=== PATIENT | female | born 1955 | race Caucasian/White ===

== ENCOUNTER 2020-05-19 06:59 | Outpatient (CLI) | payer MEDICARE, BC, OTHER, SELFPAY ==
[2020-05-19 08:05] LABS: Basophils Absolute Auto 0.1 K/mm3 (0.0-0.1); Basophils Percent Auto 0.7 % (0.2-1.2); Eosinophils Absolute Auto 0.1 K/mm3 (0-0.3); Eosinophils Percent Auto 0.6 % (0-4.4); Hematocrit 44.6 % (37.0-47.0); Hemoglobin 14.8 g/dL (12.0-15.0); Immature Granulocyte Absolute 0.04 K/mm3 (0.00-0.031); Immature Granulocyte Percent A 0.4 % (0-0.5); Lymphocytes Absolute Auto 2.21 K/mm3 (0.9-3.2); Lymphocytes Percent Auto 23.2 % (18.3-44.2); Mean Corpuscular HGB Conc 33.2 g/dl (32-36); Mean Corpuscular Volume 90.5 fl (80-100); Mean Platelet Volume 10.4 fl (7.4-10.4); Monocytes Absolute Auto 0.8 K/mm3 (0.1-0.6); Monocytes Percent Auto 8.2 % (2.6-8.5); Neutrophils Absolute Auto 6.4 K/mm3 (1.3-6.7); Neutrophils Percent Auto 66.9 % (45.5-73.1); Platelet Count Result 257 k/mm3 (150-375); Red Blood Count 4.93 M/mm3 (4.2-5.4); Red Cell Distribution Width 14.4 % (11.5-14.5); White Blood Count 9.5 K/mm3 (4.5-10.0)
[2020-05-19 08:21] LABS: Rheumatoid Factor < 8.6 IU/ML (<12)
[2020-05-19 08:34] LABS: Potassium 4.6 mmol/L (3.4-5.0)
[2020-05-19 09:00] LABS: Erythrocyte Sedimentation Rate 25 mm/hr (0-20)
[2020-05-19 09:05] LABS: Thyroid Stimulating Hormone 0.715 uIU/mL (0.465-4.680)
[2020-05-19 09:10] LABS: Alanine Aminotransferase 21 U/L (4-35); Albumin Level 4.5 g/dL (3.5-5.1); Alkaline Phosphatase 67 U/L (38-126); Anion Gap 6 mmol/L (8-16); Aspartate Amino Transferase 25 U/L (14-36); Bilirubin,Total 1.2 mg/dL (0.2-1.3); Blood Urea Nitrogen 18 mg/dL (7-17); Calcium 9.8 mg/dL (8.4-10.2); Carbon Dioxide 29 mmol/L (22-30); Chloride 106 mmol/L (98-107); Estimated Glomerular Filt Rate > 60; Glucose 97 mg/dL (65-105); Sodium 141 mmol/L (137-145)
[2020-05-19 10:01] LABS: Add Urine Microscopic? YES; Appearance Urine Clear (Clear); Bilirubin Urine Negative (Negative); Blood Urine Negative (Negative); Color Urine Yellow (Yellow); Glucose Urine UA Negative (Negative); Ketones Urine Negative (Negative); Leukocyte Esterase Ur 2+ LEU/UL (NEGATIVE); Mucus Urine Rare /lpf; Nitrate Urine Negative (Negative); Protein Urine Negative (Negative); RBC Urine 0-2 /hpf (0-2); Specific Grav Ur 1.017 (1.001-1.035); Squamous Epithelial Cell Urine Moderate /hpf (Few); Urobilinogen Urine Negative mg/dL (<2.0)
[2020-05-25 19:39] LABS: Anti Cyclic Citrullinated Pept <16 Units (<20)
== END 2020-05-19 07:00 | disposition home or self-care (01) ==
PROVIDERS: PCP Family Medicine; Visit Provider Family Medicine
DX: M19.90 Unspecified osteoarthritis, unspecified site (principal); R53.82 Chronic fatigue, unspecified
CPT/HCPCS: 36415; 80053; 81001; 84443; 85025; 85652; 86038; 86200; 86430

== ENCOUNTER 2020-08-02 09:12 | Outpatient (CLI) | payer MEDICARE, BC, OTHER, SELFPAY ==
--- NOTE | ~2020-08-02 | CT_ITS ---
EXAMINATION: CT cervical spine wo con DATE: 08/02/2020 09:49 INDICATION: Neck pain. TECHNIQUE: Computed tomography (CT) of the cervical spine was performed without intravenous contrast. Automated exposure control and iterative reconstruction technique were employed. The dose-length pro duct was 216.84 mGy-cm. COMPARISON: None FINDINGS: There is 3 degrees dextrocurvature of cervical spine. There is hypolordosis of cervical spi ne. Vertebral body heights are normal. There is moderate to severely decreased disc height from C2-C3 through C6-C7 and mildly decreased disc height at C7-T1 with endplate remodeling. The following disc levels are specifically discussed: C2-C3: There is moderate right and severe left uncovertebral joint osteoarthritis. There is moderate right and severe left facet joint osteoarthritis. There is mild bilateral neural foraminal stenosis. There is no central canal stenosis. C3-C4: There is severe bilateral uncovertebral joint osteoarthritis. There is severe bilateral facet joint osteoarthritis. There is moderate right and mild left neural foraminal stenosis. There is mild central canal stenosis. C4-C5: There is mild right and moderate left uncovertebral joint osteoarthritis. There is moderate ri ght and severe left facet joint osteoarthritis. There is mild bilateral neural foraminal stenosis. Th ere is mild central canal stenosis. C5-C6: There is severe right and moderate left uncovertebral joint osteoarthritis. There is severe bi lateral facet joint osteoarthritis. There is mild bilateral neural foraminal stenosis. There is mild central canal stenosis. C6-C7: There is severe bilateral uncovertebral joint osteoarthritis. There is severe right and mild l eft facet joint osteoarthritis. There is mild bilateral neural foraminal stenosis. There is mild cent ral canal stenosis. C7-T1: There is mild bilateral uncovertebral joint osteoarthritis. There is severe bilateral facet cj int osteoarthritis. There is mild bilateral neural foraminal stenosis. There is no central canal sten osis. IMPRESSION: 1. Severe cervical spondylosis. Reviewed, dictated and finalized at location B.
== END 2020-08-02 09:13 | disposition home or self-care (01) ==
LOC: ANHIMG 09:14
PROVIDERS: PCP Family Medicine; Visit Provider Family Medicine
DX: M47.892 Other spondylosis, cervical region (principal)
CPT/HCPCS: 72125

== ENCOUNTER 2020-08-22 15:05 | Outpatient (CLI) | payer MEDICARE, BC, OTHER, SELFPAY ==
--- NOTE | ~2020-08-22 | XR_ITS ---
XR cervical spine min 6V DATE: 08/22/2020 15:35 INDICATION: Neck pain for 2 months. TECHNIQUE: AP, open-mouth, lateral, swimmer's and flexion and extension lateral views COMPARISON: 08/02/2020 CT cervical spine FINDINGS: C1 and C2 are normally aligned and the odontoid process is intact. No fracture or dislocati on or locked facet or prevertebral soft tissue swelling is detected. Moderate degenerative disc disease is noted at C3-4, C4-5, C5-6, with moderately severe degenerative disc disease at C6-7, C7-T1.. Prominent degenerative changes noted at the apophyseal joints throughout the cervical spine. Uncovertebral joint spurring is noted throughout the cervical spine as well. There is mild anterolisthesis at C2-3, C3-4 and C4-5 and flexion, reduced in neutral and extension. IMPRESSION: Extensive cervical spondylosis Reviewed, dictated and finalized at location A.
== END 2020-08-22 15:06 | disposition home or self-care (01) ==
LOC: ANHIMG 15:09
PROVIDERS: PCP Family Medicine; Visit Provider Neurological Surgery
DX: M54.81 Occipital neuralgia (principal); M47.812 Spondylosis without myelopathy or radiculopathy, cervical region
CPT/HCPCS: 72052

== ENCOUNTER 2020-08-30 06:39 | Outpatient (CLI) | payer MEDICARE, BC, OTHER, SELFPAY ==
--- NOTE | ~2020-08-30 | MR_ITS ---
EXAMINATION: MR cervical spine wo con DATE: 08/30/2020 07:59 INDICATION: Cervical spondylosis. TECHNIQUE: Magnetic resonance imaging (MRI) of the cervical spine was performed without intravenous c ontrast. Sequences included sagittal T2-weighted FSE, sagittal STIR FSE, sagittal T1-weighted FSE, ax ial MERGE, and axial T2-weighted FSE. COMPARISON: CT cervical spine 08/02/2020 FINDINGS: There is hypolordosis of cervical spine. Vertebral body heights are normal. There is modera tely decreased disc height at C2-C3, severely decreased disc height at C3-C4 and C4-C5, moderately de creased disc height at C5-C6 and C6-C7, and mildly decreased disc height at C7-T1 with endplate remod eling. The spinal cord signal intensity is normal. The following disc levels are specifically discuss ed: C2-C3: There is a central protrusion. There is mild right and severe left uncovertebral joint osteoar thritis. There is moderate right and severe left facet joint osteoarthritis. There is mild left neura l foraminal stenosis. There is no central canal stenosis. C3-C4: The disc is bulging. There is severe bilateral uncovertebral joint osteoarthritis. There is se dionte bilateral facet joint osteoarthritis. There is moderate right and mild left neural foraminal ted nosis. There is mild central canal stenosis. C4-C5: The disc is bulging. There is severe bilateral uncovertebral joint osteoarthritis. There is se dionte bilateral facet joint osteoarthritis. There is mild bilateral neural foraminal stenosis. There i s mild central canal stenosis. C5-C6: The disc is bulging. There is severe right and moderate left uncovertebral joint osteoarthriti s. There is severe bilateral facet joint osteoarthritis. There is mild bilateral neural foraminal ted nosis. There is mild central canal stenosis. C6-C7: The disc is bulging. There is severe bilateral uncovertebral joint osteoarthritis. There is se dionte right and mild left facet joint osteoarthritis. There is mild bilateral neural foraminal stenosi s. There is mild central canal stenosis. C7-T1: There is a central extrusion. There is no uncovertebral joint osteoarthritis. There is severe bilateral facet joint osteoarthritis. There is mild bilateral neural foraminal stenosis. There is mil d central canal stenosis. IMPRESSION: 1. Severe cervical spondylosis. Reviewed, dictated and finalized at location A.
== END 2020-08-30 06:40 | disposition home or self-care (01) ==
PROVIDERS: PCP Family Medicine; Visit Provider Neurological Surgery
DX: M47.813 Spondylosis without myelopathy or radiculopathy, cervicothoracic region (principal); M48.03 Spinal stenosis, cervicothoracic region
CPT/HCPCS: 72141

== ENCOUNTER 2020-10-03 14:10 | Outpatient (CLI) | payer MEDICARE, BC, OTHER, SELFPAY ==
--- NOTE | ~2020-10-03 | CT_ITS ---
EXAMINATION: CT hip RT wo con DATE: 10/03/2020 14:32 INDICATION: Right hip pain TECHNIQUE: High resolution computed tomography (CT) of the right hip was performed without intravenou s contrast. Additional sagittal and coronal reconstructions were performed. Automated exposure contro l and iterative reconstruction technique were employed. The dose-length product was 228.67 mGy-cm. COMPARISON: None FINDINGS: Bone alignment is normal. No fracture. Mild right hip osteoarthritis with posterior predominant mild nonuniform joint space narrowing and tiny marginal osteophytes. No joint effusion. Likely benign lyti c lesion with narrow zone of transition with lobular peripheral margin demonstrating contiguous thin sclerosis in the intratrochanteric region of the proximal right femur. The lesion measures 5.2 cm her rito caudally and measuring 3.2 x 2.5 cm maximal transaxial dimensions. No aggressive features. Specif ically no expansion of the bone, endosteal scalloping, periosteal reaction or extraosseous soft tissu e density. There is a small sclerotic lesion at the left femoral inferior head neck junction which me asures 16 x 10 x 9 mm the sclerosis has a ring and arc-like configuration most consistent with chondr oid matrix and would favor enchondroma over bone island or metastases if there has been history of pr ior malignancy. IMPRESSION: 1. Mild right hip osteoarthritis. No acute osseous abnormality. 2. 1.6 cm sclerotic lesion at the inferior right femoral head neck junction with appearance favoring an enchondroma. 3. Larger 5.2 x 3.2 x 2.5 cm likely benign lytic lesion with thin sclerotic margins at the intertroch anteric proximal right femur. Differential would include bone infarct, liposclerosing myxofibrous homar or, fibrous dysplasia or intraosseous lipoma. Reviewed, dictated and finalized at location A. IMPRESSION: 1. Mild right hip osteoarthritis. No acute osseous abnormality. 2. 1.6 cm sclerotic lesion at the inferior right femoral head neck junction wit h appearance favoring an enchondroma. 3. Larger 5.2 x 3.2 x 2.5 cm likely benign lytic lesion with thin sclerotic mar gins at the intertrochanteric proximal right femur. Differential would include bone infarct, liposclerosing myxofibrous tumor, fibrous dysplasia or intraosseo us lipoma.
== END 2020-10-03 14:11 | disposition home or self-care (01) ==
PROVIDERS: PCP Family Medicine; Visit Provider Orthopaedic Surgery
DX: M16.11 Unilateral primary osteoarthritis, right hip (principal)
CPT/HCPCS: 73700

== ENCOUNTER 2020-10-07 09:36 | Outpatient (CLI) | payer MEDICARE, BC, OTHER, SELFPAY ==
--- NOTE | ~2020-10-07 | MR_ITS ---
EXAMINATION: MR hip RT wo/w con DATE: 10/07/2020 11:22 INDICATION: Right hip pain TECHNIQUE: Magnetic resonance imaging (MRI) of the right hip was performed without and with 18 mL Mu ltihance intravenous contrast. Sequences included full-field axial PD-weighted FS FSE and T1-weighted FSE, coronal of the pelvis with PD-weighted FS FSE, T2-weighted FSE and T1-weighted FSE, small field of view of the right hip with axial PD-weighted FS FSE, sagittal PD-weighted FS FSE and coronal PD- weighted FS FSE. Additional radial T1-weighted FGR oriented orthogonal to the acetabular rim were obt ained for evaluation of the labrum. In addition postcontrast small field of view coronal T1-weighted FS FSE and T2-weighted FSE and large juxju-jw-slxa of the pelvis axial T1-weighted FS FSE were obtain ed. COMPARISON: CT dated 10/03/2020 FINDINGS: Bones/labrum/cartilage: Alignment is normal. No fracture or avascular necrosis. Mild right hip osteoarthritis. Tear at the 1 :30-12:00 position of the anterosuperior to superior right acetabular labrum. Again seen is a 5.2 x 2.8 x 2.4 cm medullary centered lesion in the intertrochanteric region of the p roximal right femur with well-defined low signal intensity rim corresponding to the peripherally scle rotic rim identified on prior CT. Within the calcified rim are some peripheral globular regions of T1 hyperintense saturating fat. Centrally there is nonenhancing T2 hyperintense fluid. There is a thin rim of enhancement at the margins of the interfaces between the sclerotic rim and fat and fluid compo nents of the lesion. No extraosseous extension of the lesion or enhancing periostitis. There is been curvilinear enhancement along the margins of the sclerotic lesion is identified at the inferomedial right femoral head which measures 2.3 x 0.9 x [address] the calcified matrix has a r ing and arc-like configuration with similar curvilinear pattern to the fluid signal, in places with c luster of grape like appearance most consistent with chondroid matrix. On the small unnuu-wh-cmas sag ittal images there is a small region of fluid signal which appears uncovered by linear low signal int ensity cortex and on the postcontrast small field of view coronal image there appears to be linear en hancement extending across the cortex at a couple locations. Although no definitive extension of the lesion across the expected contour of the bone is appreciated, these findings raise concern for more aggressive enchondroma or potentially chondrosarcoma. No solid nodular enhancing components identifie d. Fluid: Symmetric physiologic amount of fluid within both hip joints. No other abnormal fluid collections ignacia ntified. Soft tissues: Normal and symmetric muscle bulk and signal in the pelvis and visualized proximal thighs. The iliopso as, gluteal and proximal hamstring tendons are normal. There are few scattered clonic diverticula wit hout adjacent inflammatory change to suggest diverticulitis. The uterus is not identified and has lik [place] been surgically resected. Limited evaluation of visceral organs of the pelvis is otherwise unr emarkable. No pathologically enlarged pelvic/inguinal lymphadenopathy. IMPRESSION: 1. 2.3 x 0.9 x 1.2 cm lesion at the inferomedial aspect of the right femoral head with imaging featur es on CT and MRI favoring chondroid matrix such as an enchondroma. There is however suggest on MRI th at there may be some focal cortical disruption which raises concern for aggressive enchondroma or cho ndrosarcoma. Assessment of cortical integrity at this location on CT is limited by resolution as well as the presence of adjacent marginal osteophytes in the density of the chondroid matrix. Would consi amanda dedicated right hip radiographs including AP and AP with abduction views. Would also correlate wi th the nature of the reported right hip pain. Atypical pain not associated with
[2020-10-07 10:31] LABS: Estimated Glomerular Filt Rate > 60
== END 2020-10-07 09:37 | disposition home or self-care (01) ==
LOC: ANHIMG 09:54
PROVIDERS: PCP Family Medicine; Visit Provider Orthopaedic Surgery
DX: M25.551 Pain in right hip (principal); M16.11 Unilateral primary osteoarthritis, right hip; S73.191A Other sprain of right hip, initial encounter
CPT/HCPCS: 73723; A9577

== ENCOUNTER 2020-11-17 10:28 | Outpatient (CLI) | payer MEDICARE, BC, OTHER, SELFPAY ==
--- NOTE | ~2020-11-17 | MR_ITS ---
EXAMINATION: MR lumbar spine wo con EXAM DATE: 11/17/2020 11:17 INDICATION: M54.16 - Radiculopathy, lumbar region . Chronic low back pain. TECHNIQUE: Multi-sequential, multiplanar MR images of the lumbar spine were obtained without contrast . Sagittal T1, T2, T2 fat saturation images. Axial T2 weighted images. There is no prior study for comparison. FINDINGS: There is moderate disc disease at L4-5 and L5-S1. Mild to moderate L3-4 disc disease. The v ertebral body and disc heights are otherwise well maintained. The vertebral bodies are aligned in the AP dimension. The conus medullaris terminates at the L1 level and has normal signal intensity and mo rphology. There are no suspicious marrow signal abnormalities. Level by level evaluation: T12-L1: Disc does not extend beyond the endplate margin. Facet arthropathy: Minimal. Neural foraminal stenosis: No stenosis. Central canal stenosis: No stenosis. L1-L2: Disc does not extend beyond the endplate margin. Facet arthropathy: Mild. Neural foraminal stenosis: No stenosis. Central canal stenosis: No stenosis. L2-L3: There is a mild diffuse disc bulge. Facet arthropathy: Mild . Ligamentum flavum enlargement. Neural foraminal stenosis: No stenosis. Central canal stenosis: No stenosis. L3-L4: There is a mild to moderate diffuse disc bulge. Annular fissure. Facet arthropathy: Mild to moderate . Ligamentum flavum enlargement. Neural foraminal stenosis: Mild bilateral. Central canal stenosis: Mild to moderate. L4-L5: There is a mild to moderate diffuse disc bulge. Facet arthropathy: Mild. Neural foraminal stenosis: Mild to moderate right. Central canal stenosis: Mild to moderate. L5-S1: There is a mild to moderate diffuse disc bulge. Facet arthropathy: Mild to moderate. Neural foraminal stenosis: Mild bilateral. Central canal stenosis: Mild to moderate. IMPRESSION: 1. Moderate lower lumbar disc disease, mild to moderate arthropathy. Reviewed, dictated and finalized at location A.
== END 2020-11-17 10:29 | disposition home or self-care (01) ==
PROVIDERS: PCP Family Medicine; Visit Provider Orthopaedic Surgery
DX: M47.27 Other spondylosis with radiculopathy, lumbosacral region (principal); M48.07 Spinal stenosis, lumbosacral region
CPT/HCPCS: 72148

== ENCOUNTER 2021-06-12 10:56 | Outpatient (CLI) | payer MEDICARE, BC, OTHER, SELFPAY ==
[2021-06-12 11:27] LABS: Hematocrit 44.8 % (37.0-47.0); Hemoglobin 14.5 g/dL (12.0-15.0); Mean Corpuscular HGB Conc 32.4 g/dl (32-36); Mean Corpuscular Volume 92.6 fl (80-100); Mean Platelet Volume 10.1 fl (7.4-10.4); Platelet Count Result 300 k/mm3 (150-375); Red Blood Count 4.84 M/mm3 (4.2-5.4); Red Cell Distribution Width 13.6 % (11.5-14.5); White Blood Count 10.6 K/mm3 (4.5-10.0)
[2021-06-12 12:20] LABS: Erythrocyte Sedimentation Rate 25 mm/hr (0-20)
[2021-06-12 12:39] LABS: Vitamin D 25 Hydroxy 36.9 ng/mL
[2021-06-12 12:54] LABS: Alanine Aminotransferase 19 U/L (4-35); Albumin Level 4.4 g/dL (3.5-5.1); Alkaline Phosphatase 84 U/L (38-126); Anion Gap 6 mmol/L (8-16); Aspartate Amino Transferase 27 U/L (14-36); Bilirubin,Total 1.4 mg/dL (0.2-1.3); Blood Urea Nitrogen 16 mg/dL (7-17); CRP 2.1 mg/dL (<1.0); Calcium 9.8 mg/dL (8.4-10.2); Carbon Dioxide 29 mmol/L (22-30); Chloride 103 mmol/L (98-107); Estimated Glomerular Filt Rate > 60; Glucose 88 mg/dL (65-110); Sodium 138 mmol/L (137-145)
[2021-06-15 08:38] LABS: SS-A <1.0; SS-B <1.0
== END 2021-06-12 10:57 | disposition home or self-care (01) ==
LOC: ANHLAB 10:59
PROVIDERS: PCP Family Medicine; Visit Provider Internal Medicine
DX: M19.90 Unspecified osteoarthritis, unspecified site (principal); Z51.81 Encounter for therapeutic drug level monitoring; Z79.899 Other long term (current) drug therapy
CPT/HCPCS: 36415; 80053; 82306; 85027; 85652; 86140; 86235

== ENCOUNTER 2021-06-20 12:42 | Outpatient (CLI) | payer MEDICARE, BC, OTHER, SELFPAY ==
--- NOTE | ~2021-06-20 | XR_ITS ---
EXAMINATION: XR lg joint inject/asp add DATE: 06/20/2021 14:13 INDICATION: Left hip pain. TECHNIQUE: A time-out was performed to verify the patient's name, date of , and procedure to b e performed. The procedure including the risks, benefits, and alternatives was discussed with the pat ient. Risks discussed included bleeding and infection. The patient understood the risks and agreed to proceed. The skin overlying the left hip joint was prepped and draped in usual sterile fashion. An esthetic was administered with 1% lidocaine subcutaneously. A 22 G needle was advanced under fluoros copic guidance into the joint. Injection of 1 mL of Omnipaque 240 confirmed intra-articular position of the needle. Subsequently, injectate consisting of 5 mL 1% lidocaine and 2 mL 10 mg/mL Kenalog wa s instilled. The needle was removed and the entry site was cleaned and dressed. There were no immed iate complications. Fluoroscopy exposure time was 0.0 minutes. The total number of images was 2. FINDINGS: Real-time fluoroscopy demonstrates the needle in the left hip joint. IMPRESSION: 1. Fluoroscopy guided left hip joint injection of local anesthetic and steroid . Reviewed, dictated and finalized at location A.
--- NOTE | ~2021-06-20 | XR_ITS ---
EXAMINATION: XR lg joint inject/asp w image DATE: 06/20/2021 14:10 INDICATION: Right hip pain. TECHNIQUE: A time-out was performed to verify the patient's name, date of , and procedure to b e performed. The procedure including the risks, benefits, and alternatives was discussed with the pat ient. Risks discussed included bleeding and infection. The patient understood the risks and agreed to proceed. The skin overlying the right hip joint was prepped and draped in usual sterile fashion. A nesthetic was administered with 1% lidocaine subcutaneously. A 22 G needle was advanced under fluoro scopic guidance into the joint. Injection of 1 mL of Omnipaque 240 confirmed intra-articular positio n of the needle. Subsequently, injectate consisting of 5 mL 1% lidocaine and 2 mL 10 mg/mL Kenalog w as instilled. The needle was removed and the entry site was cleaned and dressed. There were no imme diate complications. Fluoroscopy exposure time was 0.1 minutes. The total number of images was 2. FINDINGS: Real-time fluoroscopy demonstrates the needle in the right hip joint. IMPRESSION: 1. Fluoroscopy guided right hip joint injection of local anesthetic and steroid . Reviewed, dictated and finalized at location A.
== END 2021-06-20 12:43 | disposition home or self-care (01) ==
PROVIDERS: PCP Family Medicine; Visit Provider Orthopaedic Surgery
DX: M25.551 Pain in right hip (principal); M25.552 Pain in left hip
CPT/HCPCS: 20610; 77002; J3301; Q9966

== ENCOUNTER 2022-01-03 11:18 | Outpatient (CLI) | payer MEDICARE, BC, OTHER, SELFPAY ==
[2022-01-03 12:03] LABS: Erythrocyte Sedimentation Rate 22 mm/hr (0-20)
== END 2022-01-03 11:19 | disposition home or self-care (01) ==
LOC: ANHLAB 11:22
PROVIDERS: PCP Family Medicine; Visit Provider Internal Medicine
DX: M19.90 Unspecified osteoarthritis, unspecified site (principal)
CPT/HCPCS: 36415; 85652; 86140

== ENCOUNTER 2022-01-08 15:00 | Outpatient (RCR) | payer MEDICARE, BC, OTHER, SELFPAY | END 2022-01-08 23:59 | disposition home or self-care (01) | LOC: ANHAUDIO 15:00 | PROVIDERS: PCP Family Medicine; Visit Provider Family Medicine | DX: Z46.1 Encounter for fitting and adjustment of hearing aid (principal); H91.93 Unspecified hearing loss, bilateral | CPT/HCPCS: 99199; V5160; V5261 ==

== ENCOUNTER 2022-01-11 01:41 | Day surgery (SDC) | payer MEDICARE, BC, OTHER, SELFPAY ==
--- NOTE | 2021-12-28 10:08 | PM.IMHP ---
H&P: HPI History of Present Illness Date/Time: 12/28/21 10:08 Chief Complaint: Rectocele Narrative: 66-year-old with a rectocele. Is asymptomatic and she desires intervention. She has failed pessary. She has had hysterectomy in the past. He does have stress incontinence which is not symptomatic enough to warrant intervention. Review of Systems Review of Systems: All systems reviewed & are unremarkable except as noted in HPI and below PMFSH Past Medical History Medical History Cervical radiculopathy due to degenerative joint disease of spine Degenerative arthritis of knee, bilateral Degenerative arthritis of lumbar spine Dry eye syndrome Elevated BP without diagnosis of hypertension GERD (gastroesophageal reflux disease) Hearing loss of both ears Inflammatory arthritis Surgical History Surgical History History of hysterectomy 1984 History of rotator cuff surgery 2005 Tear meniscus knee arthroscopy right 2018 left 2019 Family History Family History Sibling Carcinoma of colon, Onset Age: 69 Father Family history of lung cancer, Onset Age: 68 Social History Social History Social History: Smoking status: Never smoker Second hand tobacco smoke exposure: No Alcohol intake: current Drinks per week: 7 Substance use: never Substance use type: does not use Gender identity (if verbalized by the patient): Female Sexual Orientation (if Verbalized by the Patient): Straight or Heterosexual Meds Home Medications and Allergies Home Medications Medication Instructions Recorded Confirmed Type cyclosporine 0.05 % eye drops in a 1 drop ophthalmic (eye) Q12H 04/05/19 11/13/21 History dropperette (Restasis) calcium carbonate 215 mg calcium 600 mg PO BID 05/23/21 11/13/21 History (500 mg) chewable tablet (Antacid Calcium) doxycycline hyclate 50 mg tablet 50 mg PO DAILY 05/23/21 11/13/21 History prednisone 2.5 mg tablet 2.5 mg PO BID #60 tabs 08/16/21 11/13/21 Rx estradiol 0.01% (0.1 mg/gram) 1 appful vaginal DAILY 1 month #85 10/19/21 11/13/21 Rx vaginal cream grams Allergies Allergy/AdvReac Type Severity Reaction Status Date / Time nickel Allergy Mild swelling Verified 11/13/21 14:24 and itch Exam Narrative: No acute distress Normal breathing Alert oriented x3 Rectocele to introitus Assessment and Plan Assessment and plan (1) Rectocele: Code(s): N81.6 - Rectocele Status: Acute Assessment and Plan: Plan on repair of rectocele. Understands risks of bleeding, infection, damage to the bowel or surrounding organs, fistula formation, dyspareunia, recurrent rectocele or prolapse. She agrees to proceed
[2021-12-28 10:13] VITALS: BMI 24.7
--- NOTE | 2021-12-28 10:19 | PC.NURSE ---
Report to the Outpatient Waiting Room, entrance under the green pavilion located off [facility], at time ____45___ on date ___01/11/22____. Planned Procedure Time: ___944 . Time changes happen often and if your time is changed the preop area will call you the afternoon before. - You and your visitor will be asked to self-screen and do not enter if you have any COVID symptoms. - We encourage only one visitor and NO visitors under age 16 are allowed at this time. Your visitor will receive communication by the phone number that is given day of service. - The patient visitor is requested to social distance or may leave the building when not with patient due to restrictions. - A mask is required within the hospital. Patients may have clear liquids (water, carbonated beverages, clear teas, apple juice) until 3 hours prior to surgery (0645 AM) with a maximum of 20 ounces. - No food from midnight until time of surgery - Infants may have breast milk until 4 hours before surgery, infant formula 6 hours prior to surgery. - Children will be allowed to drink immediately following surgery. If applicable, please bring a bottle or sippy cup to assist with drinking. Juice, water, soda, and popsicles are readily available. For infants on formula, please bring formula the day of surgery. Pacifiers are allowed. Take the following medications with a SIP of water the morning of surgery: EYE DROPS Medications to discontinue per physician N/A Date to take last dose Please no make-up, nail citizen of [place], hairspray, perfume, deodorant, or body powder the day of surgery. No jewelry (including any body piercings) or valuables the day of surgery, leave them at home. Please take a shower or bath the night before, or the morning of, surgery with an antibacterial soap. Wear comfortable, loose fitting clothing. Children are encouraged to wear pajamas. - Jewelry must be removed prior to entering the operating room. Rings and piercings that are not removed may be cut off. - The hospital will not accept responsibility for valuables. - Please leave all valuables, including medications, at home the day of surgery. If you are going home after surgery, a licensed stage driver must drive you home. - NO public transportation without another adult. - We recommend that an adult stay with you for 24 hours following discharge. - We also recommend that you do not drive, make important decision, drink alcoholic beverages, or take any drugs that were not prescribed by your health care provider for at least 24 hours after your discharge time. For Pediatric surgeries, we recommend two adults accompany the child home. Follow any additional instructions given to you from your surgeon. If you or anyone in your household have experienced Covid symptoms in the past week, please notify your surgeon or the nurse liaison at the phone number below for possible testing. Telephone instructions given to ____PT and asked if any additional questions and then verbalized understanding. Patient advised to call surgeon office or pre surgery nurse liaison [phone] if any additional questions.
[2022-01-11] VITALS (8 sets, daily range): BP systolic 132–161; BP diastolic 77–88; PULSE 57–72; RESP 14–22; TEMP 36.4–36.9; O2SAT 98–100
--- NOTE | 2022-01-11 07:18 | WPDHPUPDATE1 ---
History and Physical Update Update Date/Time: 01/11/22 07:18 History and Physical has been reviewed, including an updated exam of the patient. There are NO changes in the patient's condition. Risks, benefits, and alternatives have been discussed and questions answered. Patient agrees to proceed with procedure.
--- NOTE | 2022-01-11 08:14 | WPDANESEPPF ---
Anes - Initial Pre Proc Eval Procedure: Operation Date: 01/11/22 09:45 Proposed Procedures p Rectocele Repair - Georges Mcguire MD Date/Time: 01/11/22 08:14 Surgeon: Georges Mcguire MD Pre Op Diagnosis: rectocele Patient Data Age: 66 Gender: F Height: 1.69 m Weight: 72.2 kg Allergies Allergy/AdvReac Type Severity Reaction Status Date / Time nickel Allergy Mild swelling Verified 01/11/22 08:07 and itch Home Medications Medication Instructions Recorded Confirmed Type cyclosporine 0.05 % eye drops in a 1 drop ophthalmic (eye) Q12H 04/05/19 01/11/22 History dropperette (Restasis) calcium carbonate 215 mg calcium 600 mg PO BID 05/23/21 01/11/22 History (500 mg) chewable tablet (Antacid Calcium) doxycycline hyclate 50 mg tablet 50 mg PO DAILY 05/23/21 01/11/22 History estradiol 0.01% (0.1 mg/gram) 1 appful vaginal DAILY 1 month #85 10/19/21 01/11/22 Rx vaginal cream grams fiber 1 tablet PO BID 12/28/21 01/11/22 History Patient hx anesthesia problems: none Family hx anesthesia problems: none Results Review: All pre-operative results and documents have been reviewed as part of the pre-operative evaluation. [facility] Past Medical History Medical History Cervical radiculopathy due to degenerative joint disease of spine Degenerative arthritis of knee, bilateral Degenerative arthritis of lumbar spine Dry eye syndrome Elevated BP without diagnosis of hypertension GERD (gastroesophageal reflux disease) Hearing loss of both ears Inflammatory arthritis Surgical History Surgical History History of hysterectomy 1984 History of rotator cuff surgery 2005 Tear meniscus knee arthroscopy right 2018 left 2019 Family History Family History Sibling Carcinoma of colon, Onset Age: 69 Father Family history of lung cancer, Onset Age: 68 Social History Social History Social History: Smoking status: Never smoker Second hand tobacco smoke exposure: No Alcohol intake: current Drinks per week: 7 Substance use: never Substance use type: does not use Living arrangements: with family Gender identity (if verbalized by the patient): Female Sexual Orientation (if Verbalized by the Patient): Straight or Heterosexual Spiritual care concerns: No Anes - Eval Final PreProcedure Day of Procedure 01/11/22 08:14 Patient weight: normal Heart: regular rate and rhythm Lungs: clear to auscultation Airway: Mallampati scale class II Neurological: alert and oriented Last oral intake: >/= 8 hours ASA classification: II Emergent: no Anesthetic plan: proceed Anesthesia type and monitoring: general ETT and standard monitoring Results Review: All pre-operative results and documents have been reviewed as part of the pre-operative evaluation. Informed Consent: The patient's anesthetic plan and its attendant risks and benefits were discussed with the patient/family/POA. Questions were solicited and answers provided to the satisfaction of the patient/family/POA.
[2022-01-11] MEDS: LACTATED RINGERS 1,000 ML 30 ML IV CONT (08:16)
[2022-01-11] MEDS: ceFAZolin 2 GM/D5W 50 ML 2 GM/50 ML BAG IVPB (10:01)
[2022-01-11] MEDS: BUPIVACAINE/EPINEPHRINE 0.25% 50 ML VIAL INFILTRATE (10:27)
--- NOTE | 2022-01-11 10:56 | P.OP_ITS ---
Procedure Note - Detailed Date of Procedure 01/11/22 Pre-op Diagnosis rectocele Post-op Diagnosis Same Procedure Performed Rectocele repair Surgeon Georges Mcguire MD Anesthesia General Indications This is a with a symptomatic rectocele. She desires correction. We discussed a rectocele repair. She understands risks of bleeding, infection, recurrence, damage to the bowel, fistula, damage surrounding organs, recurrent prolapse, hip and leg pain, dyspareunia. She agrees to proceed Findings Rectocele to the introitus with mild loss of apical support Description of Procedure She has correctly identified. Informed consent obtained. From the operating room. She was given general anesthesia. She was prepped and draped fashion. Time-out performed. I placed Chopra catheter. I placed a [place] retractor. I examine the rectocele. It was to the introitus. She had reasonable apical support but some mild loss. I grasped the rectocele with Allis clamps. I infiltrated subcutaneous tissues with local mixed with epinephrine. I made a midline vaginal incision. I dissected the mucosa off the underlying fascial structures laterally and back to the apex. I then performed a standard plication rectocele repair with 0 Vicryl sutures. This was done in interrupted fashion. It reduced the rectocele. The posterior wall was flat. There is mild loss of apical support above the rectocele. I did not do an enterocele repair. I then trimmed excess vaginal mucosa. I closed the vaginal [place] a running 2 0 Vicryl suture. There was excellent support of the rectocele. There is no significant cystocele. I assured hemostasis. I did not place vaginal packing. I removed the Chopra in the [place] retractor. She was awakened transferred to PACU in stable condition Estimated Blood Loss -20.0 Complications No immediate complications Condition Stable Disposition PACU
== END 2022-01-11 12:42 | disposition home or self-care (01) ==
PROVIDERS: PCP Family Medicine; Visit Provider Urology
PROC: 0JQC0ZZ Repair Pelvic Region Subcutaneous Tissue and Fascia, Open Approach (ICD-10-PCS; CPT 45560; principal; 2022-01-11 09:45)
DX: N81.6 Rectocele (principal); K21.9 Gastro-esophageal reflux disease without esophagitis
CPT/HCPCS: 45560; A9270; J0690; J1100; J2250; J2405; J2704; J3010; J7030; J7120

== ENCOUNTER 2022-03-12 10:05 | Outpatient (CLI) | payer MEDICARE, BC, OTHER, SELFPAY ==
[2022-03-12 11:19] LABS: Hematocrit 44.5 % (37.0-47.0); Hemoglobin 14.5 g/dL (12.0-15.0); Mean Corpuscular HGB Conc 32.6 g/dl (32-36); Mean Corpuscular Hemoglobin 29.6 pg (26-34); Mean Corpuscular Volume 90.8 fl (80-100); Mean Platelet Volume 10.8 fl (7.4-10.4); Platelet Count Result 261 k/mm3 (150-375); Red Cell Distribution Width 13.6 % (11.5-14.5); White Blood Count 8.9 K/mm3 (4.5-10.0)
[2022-03-12 11:30] LABS: Add Urine Microscopic? NO; Appearance Urine Clear (Clear); Bilirubin Urine Negative (Negative); Blood Urine Negative (Negative); Color Urine Yellow (Yellow); Glucose Urine UA Negative (Negative); Ketones Urine Negative (Negative); Leukocyte Esterase Ur Negative LEU/UL (Negative); Nitrate Urine Negative (Negative); Protein Urine Negative (Negative); Specific Grav Ur <= 1.005 (1.001-1.035); Urobilinogen Urine 0.2 mg/dL (<2.0)
[2022-03-12 11:33] LABS: Alanine Aminotransferase 20 U/L (6-35); Albumin Level 4.4 g/dL (3.5-5.1); Alkaline Phosphatase 71 U/L (38-126); Anion Gap 6 mmol/L (8-16); Aspartate Amino Transferase 25 U/L (14-36); Blood Urea Nitrogen 18 mg/dL (7-17); CRP 1.3 mg/dL (<1.0); Calcium 8.9 mg/dL (8.4-10.2); Carbon Dioxide 28 mmol/L (22-30); Chloride 101 mmol/L (98-107); Estimated Glomerular Filt Rate > 60; Glucose 87 mg/dL (65-110); Potassium 4.3 mmol/L (3.4-5.0); Sodium 135 mmol/L (137-145)
[2022-03-12 12:12] LABS: Erythrocyte Sedimentation Rate 17 mm/hr (0-20)
== END 2022-03-12 10:06 | disposition home or self-care (01) ==
PROVIDERS: PCP Family Medicine; Visit Provider Internal Medicine
DX: M35.3 Polymyalgia rheumatica (principal); M19.90 Unspecified osteoarthritis, unspecified site; R89.9 Unspecified abnormal finding in specimens from other organs, systems and tissues
CPT/HCPCS: 36415; 80053; 81003; 85027; 85652; 86140

== ENCOUNTER 2022-07-08 06:59 | Outpatient (CLI) | payer MEDICARE, BC, OTHER, SELFPAY ==
[2022-07-08 07:22] LABS: Hematocrit 44.6 % (37.0-47.0); Hemoglobin 14.6 g/dL (12.0-15.0); Mean Corpuscular HGB Conc 32.7 g/dl (32-36); Mean Corpuscular Hemoglobin 31.1 pg (26-34); Mean Corpuscular Volume 94.9 fl (80-100); Platelet Count Result 254 k/mm3 (150-375); Red Cell Distribution Width 14.6 % (11.5-14.5); White Blood Count 8.2 K/mm3 (4.5-10.0)
[2022-07-08 07:24] LABS: Appearance Urine Clear (Clear); Bilirubin Urine Negative (Negative); Blood Urine Negative (Negative); Color Urine Yellow (Yellow); Glucose Urine UA Negative (Negative); Ketones Urine Negative (Negative); Leukocyte Esterase Ur Negative LEU/UL (Negative); Nitrate Urine Negative (Negative); Protein Urine Negative (Negative); Specific Grav Ur 1.014 (1.001-1.035); Urobilinogen Urine 0.2 mg/dL (<2.0); pH Urine 7.5 (5.0-9.0)
[2022-07-08 07:38] LABS: Alanine Aminotransferase 25 U/L (6-35); Albumin Level 4.3 g/dL (3.5-5.1); Alkaline Phosphatase 63 U/L (38-126); Anion Gap 3 mmol/L (8-16); Aspartate Amino Transferase 21 U/L (14-36); Bilirubin,Total 1.4 mg/dL (0.2-1.3); Blood Urea Nitrogen 17 mg/dL (7-17); CRP 1.9 mg/dL (<1.0); Calcium 9.3 mg/dL (8.4-10.2); Carbon Dioxide 32 mmol/L (22-30); Chloride 101 mmol/L (98-107); Estimated Glomerular Filt Rate > 60; Glucose 102 mg/dL (65-110); Potassium 4.3 mmol/L (3.4-5.0); Sodium 136 mmol/L (137-145)
[2022-07-08 07:56] LABS: Add Urine Microscopic? NO
[2022-07-08 08:09] LABS: Erythrocyte Sedimentation Rate 15 mm/hr (0-20)
== END 2022-07-08 07:00 | disposition home or self-care (01) ==
PROVIDERS: PCP Family Medicine; Visit Provider Internal Medicine
DX: M19.90 Unspecified osteoarthritis, unspecified site (principal); M35.3 Polymyalgia rheumatica; R89.9 Unspecified abnormal finding in specimens from other organs, systems and tissues
CPT/HCPCS: 36415; 80053; 81003; 85027; 85652; 86140

== ENCOUNTER 2022-08-02 07:47 | Outpatient (CLI) | payer MEDICARE, BC, OTHER, SELFPAY ==
[2022-08-02 09:23] LABS: CRP 1.3 mg/dL (<1.0)
[2022-08-02 09:37] LABS: Erythrocyte Sedimentation Rate 17 mm/hr (0-20)
[2022-08-06 13:53] LABS: NIL 0.02 IU/mL; Quantiferon TB Plus, 1T NEGATIVE (NEGATIVE); TB1-NIL 0.06 IU/mL; TB2-NIL 0.05 IU/mL
== END 2022-08-02 07:48 | disposition home or self-care (01) ==
PROVIDERS: PCP Family Medicine; Visit Provider Internal Medicine
DX: M35.3 Polymyalgia rheumatica (principal); M31.6 Other giant cell arteritis; M19.90 Unspecified osteoarthritis, unspecified site
CPT/HCPCS: 36415; 85652; 86140; 86480

== ENCOUNTER 2022-08-03 07:48 | Outpatient (CLI) | payer MEDICARE, BC, OTHER, SELFPAY ==
--- NOTE | ~2022-08-03 | MR_ITS ---
EXAMINATION: MR brain/brain stem wo/w con DATE: 08/03/2022 08:53 INDICATION: Other giant cell arteritis. Dizziness. TECHNIQUE: Magnetic resonance imaging (MRI) of the brain and brainstem was performed without and with 13 mL MultiHance intravenous contrast. COMPARISON: None. FINDINGS: There are scattered areas of nonspecific increased T2-weighted signal intensity in the cere bral white matter, bilateral basal ganglia and dragan. There is no intracranial hemorrhage, acute infar ction, or abnormal intracranial mass lesion. The ventricles are normal in size. There is mild mucosal thickening in the ethmoid sinuses. The orbits are normal. The mastoid air cells are normal. IMPRESSION: 1. Moderate nonspecific cerebral white matter disease and disease of the bilateral basal ganglia and dragan, which likely represents chronic small vessel ischemic disease. Reviewed, dictated and finalized at location A. IMPRESSION: 1. Moderate nonspecific cerebral white matter disease and disease of the bilate ral basal ganglia and dragan, which likely represents chronic small vessel ischem ic disease.
== END 2022-08-03 07:49 | disposition home or self-care (01) ==
LOC: ANHIMG 07:51
PROVIDERS: PCP Family Medicine; Visit Provider Internal Medicine
DX: M31.6 Other giant cell arteritis (principal); R93.0 Abnormal findings on diagnostic imaging of skull and head, not elsewhere classified
CPT/HCPCS: 70553; A9577

== ENCOUNTER 2022-10-21 02:49 | Day surgery (SDC) | payer MEDICARE, BC, OTHER, SELFPAY ==
[2022-10-09 15:01] VITALS: BMI 23.5
--- NOTE | 2022-10-09 15:03 | PC.NURSE ---
Report to the Outpatient Waiting Room, entrance under the green pavilion located off [facility], at time _0930_ on date _[id number]_. Planned Procedure Time: _1130_. Time changes happen often and if your time is changed the preop area will call you the afternoon before. - You and your visitor will be asked to self-screen and do not enter if you have any COVID symptoms. - A mask is optional within the hospital at this time. Patients may have clear liquids (water, carbonated beverages, clear teas, apple juice) until 3 hours prior to surgery with a maximum of 20 ounces. - No food from midnight until time of surgery Take the following medications with a SIP of water the morning of surgery: __eye drops DO NOT STOP ANY OF YOUR OTHER PRESCRIPTION MEDICATIONS PRIOR TO SURGERY ?EXCEPT THE FOLLOWING Medications to discontinue per physician ___Patient says Dr Mcguire's office told her to stop prednisone and vitamins 1 week before surgery.____ Date to take last dose Please no make-up, nail georgian, hairspray, perfume, deodorant, or body powder the day of surgery. No jewelry (including any body piercings) or valuables the day of surgery, leave them at home. Please take a shower or bath the night before, or the morning of, surgery with an antibacterial soap. Wear comfortable, loose fitting clothing. - Jewelry must be removed prior to entering the operating room. Rings and piercings that are not removed may be cut off. - The hospital will not accept responsibility for valuables. - Please leave all valuables, including medications, at home the day of surgery. If you are going home after surgery, a licensed powder truck driver must drive you home. - NO public transportation without another adult if you receive anesthesia. - We recommend that an adult stay with you for 24 hours following discharge. - We also recommend that you do not drive, make important decision, drink alcoholic beverages, or take any drugs that were not prescribed by your health care provider for at least 24 hours after your discharge time. Follow any additional instructions given to you from your surgeon. If you or anyone in your household have experienced Covid symptoms in the past week, please notify your surgeon or the nurse liaison at the phone number below for possible testing. Telephone instructions given to __Patient___and asked if any additional questions and then verbalized understanding. Patient advised to call surgeon office or pre surgery nurse liaison [phone] if any additional questions.
--- NOTE | 2022-10-20 09:26 | PM.IMHP ---
H&P: [facility] History of Present Illness Date/Time: 10/20/22 09:26 Chief Complaint: Pelvic organ prolapse Narrative: she has a large rectocele and vaginal vault prolapse. She had a prior rectocele repair in January 2022 which quickly failed. She has no stress incontinence by history. There is stress incontinence noted on urodynamics. She would like repair of her prolapse. she declines concomitant stress incontinence procedure Review of Systems Review of Systems: All systems reviewed & are unremarkable except as noted in HPI and below [facility] Past Medical History Medical History Acute sinusitis Bronchitis Cervical radiculopathy due to degenerative joint disease of spine Congestion of left ear Degenerative arthritis of knee, bilateral Degenerative arthritis of lumbar spine Dry eye syndrome GERD (gastroesophageal reflux disease) Hearing loss of aging Hearing loss of both ears Inflammatory arthritis Inflammatory arthritis Polymyalgia rheumatica Vaginal discharge Surgical History Surgical History History of hysterectomy 1984 History of rotator cuff surgery 2004 Tear meniscus knee arthroscopy right 2018 left 2019 Family History Family History Sibling Carcinoma of colon, Onset Age: 69 Father Family history of lung cancer, Onset Age: 68 Social History Social History Social History: Smoking status: Never smoker Second hand tobacco smoke exposure: No Alcohol intake: current Drinks per week: 7 Substance use: never Substance use type: does not use Lack of Transportation: No Lack of Food: Never True Current Housing: I Have Housing Concerned About Future Housing: No Difficulty Paying Gas/Electric Bills: No Difficulty Paying for Meds: No Currently Unemployed: YES Education: Decline to Answer Difficulty w/ Childcare or Family Care: No Living arrangements: with family Occupation/Education: retired Gender identity (if verbalized by the patient): Female Sexual Orientation (if Verbalized by the Patient): Straight or Heterosexual Spiritual care concerns: No Meds Home Medications and Allergies Home Medications Medication Instructions Recorded Confirmed Type cyclosporine 0.05 % eye drops in a 1 drop ophthalmic (eye) Q12H 04/05/19 10/09/22 History dropperette (Restasis) calcium carbonate 215 mg calcium 600 mg PO BID 05/23/21 10/09/22 History (500 mg) chewable tablet (Antacid Calcium) fiber 1 tablet PO BID 12/28/21 10/09/22 History prednisone 2.5 mg tablet 2.5 mg PO BID #60 tabs 08/20/22 10/09/22 Rx tocilizumab 162 mg/0.9 mL 162 mg (0.9 mL) subcut WEEKLY #3.6 08/27/22 10/09/22 Rx subcutaneous pen injector (Actemra mL ACTPen) estradiol 0.01% (0.1 mg/gram) See Rx Instructions .Route 09/04/22 10/09/22 Rx vaginal cream .COMPLEX #85 grams metronidazole 1 % topical gel 1 applic topical DAILY #60 grams 09/19/22 10/09/22 Rx doxycycline hyclate 50 mg capsule 50 mg PO DAILY 10/09/22 10/09/22 History Allergies Allergy/AdvReac Type Severity Reaction Status Date / Time nickel Allergy Mild swelling Verified 10/09/22 14:53 and itch Exam Narrative: no acute distress minimal urethral mobility alert oriented x3 apex at -2 rectocele beyond the introitus Assessment and Plan Assessment and plan (1) Rectocele: Code(s): N81.6 - Rectocele Status: Acute (2) Prolapse of vaginal vault after hysterectomy: Code(s): N99.3 - Prolapse of vaginal vault after hysterectomy Status: Acute Plan vaginal prolapse repair with sacral spinous ligament fixation and possible rectocele repair she understands risks of bleeding, infection, damage to the bowel or bladder, damage to surrounding organs,
[2022-10-21] VITALS (11 sets, daily range): BP systolic 116–169; BP diastolic 69–99; PULSE 54–85; RESP 14–20; TEMP 36.2–36.4; O2SAT 92–100; BMI 24.9
[2022-10-21] MEDS: LACTATED RINGERS 1,000 ML 30 ML IV CONT ×2 (10:30→13:34)
--- NOTE | 2022-10-21 10:56 | WPDHPUPDATE1 ---
History and Physical Update Update Date/Time: 10/21/22 10:56 History and Physical has been reviewed, including an updated exam of the patient. There are NO changes in the patient's condition. Risks, benefits, and alternatives have been discussed and questions answered. Patient agrees to proceed with procedure.
--- NOTE | 2022-10-21 11:26 | WPDANESEPPF ---
Anes - Initial Pre Proc Eval Procedure: Operation Date: 10/21/22 11:30 Proposed Procedures p Sacral Spinous Ligament Fixation, Rectocele Repair - Georges Mcguire MD Date/Time: 10/21/22 11:26 Surgeon: Georges Mcguire MD Pre Op Diagnosis: Prolapse, Vag vault after Hysterectomy Patient Data Age: 67 Gender: F Height: 1.7 m Weight: 72.25 kg Last Vital Signs Temp 36.4 C L 10/21/22 09:28 Pulse 77 10/21/22 09:28 Resp 16 10/21/22 09:28 BP 143/88 H 10/21/22 10:42 Pulse Ox 100 10/21/22 09:28 O2 Del Method Room Air 10/21/22 09:28 Allergies Allergy/AdvReac Type Severity Reaction Status Date / Time nickel Allergy Mild swelling Verified 10/21/22 09:42 and itch Home Medications Medication Instructions Recorded Confirmed Type cyclosporine 0.05 % eye drops in a 1 drop ophthalmic (eye) Q12H 04/05/19 10/09/22 History dropperette (Restasis) calcium carbonate 215 mg calcium 600 mg PO BID 05/23/21 10/21/22 History (500 mg) chewable tablet (Antacid Calcium) fiber 1 tablet PO BID 12/28/21 10/21/22 History prednisone 2.5 mg tablet 2.5 mg PO BID #60 tabs 08/20/22 10/21/22 Rx tocilizumab 162 mg/0.9 mL 162 mg (0.9 mL) subcut WEEKLY #3.6 08/27/22 10/09/22 Rx subcutaneous pen injector (Actemra mL ACTPen) metronidazole 1 % topical gel 1 applic topical DAILY #60 grams 09/19/22 10/09/22 Rx doxycycline hyclate 50 mg capsule 50 mg PO DAILY 10/09/22 10/09/22 History estradiol 0.01% (0.1 mg/gram) See Rx Instructions .Route 10/21/22 Rx vaginal cream .COMPLEX #85 grams Patient hx anesthesia problems: post op nausea/vomiting Family hx anesthesia problems: none Results Review: All pre-operative results and documents have been reviewed as part of the pre-operative evaluation. COUNTS INCLUDE 234 BEDS AT THE [facility] Past Medical History Medical History Acute sinusitis Bronchitis Cervical radiculopathy due to degenerative joint disease of spine Congestion of left ear Degenerative arthritis of knee, bilateral Degenerative arthritis of lumbar spine Dry eye syndrome GERD (gastroesophageal reflux disease) Hearing loss of aging Hearing loss of both ears Inflammatory arthritis Inflammatory arthritis Polymyalgia rheumatica Vaginal discharge Surgical History Surgical History History of hysterectomy 1984 History of rotator cuff surgery 2005 Tear meniscus knee arthroscopy right 2018 left 2019 Family History Family History Sibling Carcinoma of colon, Onset Age: 69 Father Family history of lung cancer, Onset Age: 68 Social History Social History Social History: Smoking status: Never smoker Second hand tobacco smoke exposure: No Alcohol intake: current Drinks per week: 7 Substance use: never Substance use type: does not use Lack of Transportation: No Lack of Food: Never True Current Housing: I Have Housing Concerned About Future Housing: No Difficulty Paying Gas/Electric Bills: No Difficulty Paying for Meds: No Currently Unemployed: YES Education: Decline to Answer Difficulty w/ Childcare or Family Care: No Living arrangements: with family Occupation/Education: retired Gender identity (if verbalized by the patient): Female Sexual Orientation (if Verbalized by the Patient): Straight or Heterosexual Spiritual care concerns: No Anes - Eval Final PreProcedure Day of Procedure 10/21/22 11:26 Patient weight: normal Heart: regular rate and rhythm Lungs: clear to auscultation Airway: Mallampati scale class II Neurological: alert and oriented Last oral intake: >/= 8 hours ASA classification: III Emergent: no Anesthetic plan: proceed Anesthesia type and monitoring: general GIVS and standard monitoring Results Review: A
[2022-10-21] MEDS: ceFAZolin 2 GM/D5W 50 ML 2 GM/50 ML BAG IVPB (11:29)
[2022-10-21] MEDS: BUPIVACAINE/EPINEPHRINE 0.25% 50 ML VIAL 30 ML INFILTRATE (12:32)
--- NOTE | 2022-10-21 13:04 | W.PM.PROC2 ---
Procedure Note - Detailed Date of Procedure 10/21/22 Pre-op Diagnosis Prolapse, Vag vault after Hysterectomy Female perineal laxity Post-op Diagnosis Same Procedure Performed Extraperitoneal transvaginal colpopexy/sacral spinous ligament fixation [id number] Perineoplasty [id number] Surgeon Georges Mcguire MD Anesthesia General and Local Indications This is a woman who is status post prolapse repair as well as hysterectomy. She quickly filled her prolapse repair. She has a large rectocele/enterocele and loss of apical support. She presents for a extra perineal vaginal colpopexy/sacral spinous ligament fixation. She understands risks of bleeding, infection, damage to the rectum or surrounding organs, recurrence of prolapse, vessel or nerve injury, postoperative voiding dysfunction including incontinence and retention, dyspareunia, need for ancillary procedures. She agrees to proceed Findings Large enterocele and vaginal vault prolapse Description of Procedure She has correctly identified. Informed consent was obtained. She from the operating room. She was given general anesthesia. She was placed in dorsal lithotomy position. Genitalia prepped and draped in a sterile fashion. Time-out performed. I placed the [place] retractor. I placed a Chopra catheter. She had a very large enterocele and rectocele with loss of apical support. I grasped the posterior wall. I infiltrated the subcutaneous tissues with local mixed with epinephrine. I made a midline vaginal incision on the posterior wall. I dissected out laterally both on the right and the left towards the apex. Of note I did not enter the peritoneal. I continued to dissect back on the right to locate the ischial spine and the sacral spinous ligament fixation. I chose a site on the sacral spinous ligament 2 fingerbreadths medial to the ischial spine. I used the [employer] device to place a Ethibond suture into the sacral spinous ligament. Again this was done to 6 fingerbreadths medial to the ischial spine. I took great care to sweep rectum medially. I then chose a site on the apex and placed the other and the suture and a good purchase of tissue at apex vagina. I then tied down the sacral spinous ligament fixation. There was excellent reduction of the vaginal wall prolapse as well as enterocele. Again I did not enter the enterocele sac. I did not enter the peritoneum. I then closed the vaginal incision with a running 2-0 Vicryl suture. There was excellent support of the vaginal vault. There was no significant rectocele. She had perineal laxity noted. I infiltrated it the perineum with local mixed with epinephrine. I removed a almas-shaped area of skin. I then performed a perineoplasty with 0 Vicryl suture. I used a 2-0 Vicryl closed the mucosa. There was excellent support to the perineum. I assured hemostasis. No vaginal packing was applied. I then performed cystoscopy. There was mild trabeculations. There is no other bladder abnormalities or foreign bodies. Urethra was normal. Ureters were normal. I left the bladder partially full. Rectal exam was normal. No sign of foreign body. No sign of injury. she was awakened transferred to PACU in stable condition. Estimated Blood Loss 50 Urine Output -600.0 Drains No Packing No Pathology None sent Complications No immediate complications Condition Stable Disposition PACU
[2022-10-21] MEDS: fentaNYL CITRATE INJ (*CRX) 100 MCG/2 ML VIAL 25 MCG IV PUSH ×4 (13:23→13:57)
[2022-10-21] MEDS: oxyCODONE HCL (*CRX) 5 MG TAB IR PO (14:22)
== END 2022-10-21 15:10 | disposition home or self-care (01) ==
PROVIDERS: PCP Family Medicine; Visit Provider Urology
PROC: (CPT 57260; principal; 2022-10-21 11:30)
DX: N99.3 Prolapse of vaginal vault after hysterectomy (principal); M54.12 Radiculopathy, cervical region; K21.9 Gastro-esophageal reflux disease without esophagitis; Z80.1 Family history of malignant neoplasm of trachea, bronchus and lung; Z80.0 Family history of malignant neoplasm of digestive organs
CPT/HCPCS: 57282; A9270; J0690; J1100; J2250; J2405; J2704; J3010; J7030; J7120; Q9968

== ENCOUNTER 2022-11-06 06:45 | Outpatient (CLI) | payer MEDICARE, BC, OTHER, SELFPAY ==
[2022-11-06 08:06] LABS: Appearance Urine Clear (Clear); Bacteria Urine None Seen /hpf; Bilirubin Urine Negative (Negative); Blood Urine Negative (Negative); Color Urine Yellow (Yellow); Glucose Urine UA Negative (Negative); Ketones Urine Negative (Negative); Leukocyte Esterase Ur 2+ LEU/UL (Negative); Nitrate Urine Negative (Negative); Non Pathogenic Casts 0-2; Protein Urine Negative (Negative); RBC Urine 0-2 /hpf (0-2); Specific Grav Ur 1.017 (1.001-1.035); Squamous Epithelial Cell Urine Few /hpf (Few); Urobilinogen Urine 0.2 mg/dL (<2.0)
[2022-11-06 08:11] LABS: Hematocrit 45.3 % (37.0-47.0); Hemoglobin 14.8 g/dL (12.0-15.0); Mean Corpuscular HGB Conc 32.7 g/dl (32-36); Mean Corpuscular Hemoglobin 30.4 pg (26-34); Mean Platelet Volume 10.7 fl (7.4-10.4); Platelet Count Result 352 k/mm3 (150-375); Red Blood Count 4.87 M/mm3 (4.2-5.4); Red Cell Distribution Width 13.8 % (11.5-14.5); White Blood Count 11.2 K/mm3 (4.5-10.0)
[2022-11-06 08:15] LABS: Add Urine Microscopic? YES
[2022-11-06 08:22] LABS: Alanine Aminotransferase 26 U/L (6-35); Albumin Level 4.3 g/dL (3.5-5.1); Alkaline Phosphatase 63 U/L (38-126); Anion Gap 9 mmol/L (8-16); Aspartate Amino Transferase 24 U/L (14-36); Bilirubin,Total 0.8 mg/dL (0.2-1.3); Blood Urea Nitrogen 19 mg/dL (7-17); CRP 0.6 mg/dL (<1.0); Calcium 9.3 mg/dL (8.4-10.2); Carbon Dioxide 26 mmol/L (22-30); Chloride 100 mmol/L (98-107); Cholesterol 207 mg/dL (0-200); Estimated Glomerular Filt Rate 55; Glucose 74 mg/dL (65-110); HDL Direct 75 mg/dL; Potassium 4.5 mmol/L (3.4-5.0); Sodium 135 mmol/L (137-145); Triglycerides 232 mg/dL (<150)
[2022-11-06 08:30] LABS: LDL Cholesterol Direct 84 mg/dL
[2022-11-06 09:56] LABS: Erythrocyte Sedimentation Rate 16 mm/hr (0-20)
== END 2022-11-06 06:46 | disposition home or self-care (01) ==
LOC: ANHLAB 06:48
PROVIDERS: PCP Family Medicine; Visit Provider Internal Medicine
DX: M31.6 Other giant cell arteritis (principal); M19.90 Unspecified osteoarthritis, unspecified site; R89.9 Unspecified abnormal finding in specimens from other organs, systems and tissues; I10 Essential (primary) hypertension
CPT/HCPCS: 36415; 80053; 80061; 81001; 85027; 85652; 86140; 87077; 87086; 87088

== ENCOUNTER 2023-01-15 06:45 | Outpatient (CLI) | payer MEDICARE, BC, OTHER, SELFPAY ==
[2023-01-15 07:52] LABS: Hematocrit 46.8 % (37.0-47.0); Hemoglobin 15.1 g/dL (12.0-15.0); Mean Corpuscular HGB Conc 32.3 g/dl (32-36); Mean Corpuscular Volume 96.1 fl (80-100); Mean Platelet Volume 10.4 fl (7.4-10.4); Platelet Count Result 229 k/mm3 (150-375); Red Blood Count 4.87 M/mm3 (4.2-5.4); Red Cell Distribution Width 14.8 % (11.5-14.5); White Blood Count 6.4 K/mm3 (4.5-10.0)
[2023-01-15 07:57] LABS: Appearance Urine Clear (Clear); Bilirubin Urine Negative (Negative); Blood Urine Negative (Negative); Color Urine Yellow (Yellow); Glucose Urine UA Negative (Negative); Ketones Urine Negative (Negative); Leukocyte Esterase Ur Negative LEU/UL (Negative); Nitrate Urine Negative (Negative); Protein Urine Negative (Negative); Specific Grav Ur 1.008 (1.001-1.035); Urobilinogen Urine 0.2 mg/dL (<2.0); pH Urine 7.5 (5.0-9.0)
[2023-01-15 08:03] LABS: Add Urine Microscopic? NO
[2023-01-15 08:08] LABS: Alanine Aminotransferase 22 U/L (6-35); Alkaline Phosphatase 38 U/L (38-126); Anion Gap 2 mmol/L (8-16); Aspartate Amino Transferase 19 U/L (14-36); Bilirubin,Total 1.8 mg/dL (0.2-1.3); Blood Urea Nitrogen 17 mg/dL (7-17); CRP < 0.5 mg/dL (<1.0); Carbon Dioxide 31 mmol/L (22-30); Chloride 102 mmol/L (98-107); Cholesterol 204 mg/dL (0-200); Estimated Glomerular Filt Rate > 60; Glucose 84 mg/dL (65-110); HDL Direct 93 mg/dL; Potassium 3.9 mmol/L (3.4-5.0); Sodium 135 mmol/L (137-145); Triglycerides 221 mg/dL (<150)
[2023-01-15 08:17] LABS: LDL Cholesterol Direct 72 mg/dL
[2023-01-15 10:41] LABS: Erythrocyte Sedimentation Rate 4 mm/hr (0-20)
== END 2023-01-15 06:46 | disposition home or self-care (01) ==
PROVIDERS: PCP Family Medicine; Visit Provider Internal Medicine
DX: M31.6 Other giant cell arteritis (principal); M19.90 Unspecified osteoarthritis, unspecified site; R89.9 Unspecified abnormal finding in specimens from other organs, systems and tissues
CPT/HCPCS: 36415; 80053; 80061; 81003; 85027; 85652; 86140

== ENCOUNTER 2023-03-17 06:47 | Outpatient (CLI) | payer MEDICARE, BC, OTHER, SELFPAY ==
[2023-03-17 07:16] LABS: Hematocrit 45.9 % (37.0-47.0); Hemoglobin 14.6 g/dL (12.0-15.0); Mean Corpuscular HGB Conc 31.8 g/dl (32-36); Mean Corpuscular Hemoglobin 30.8 pg (26-34); Mean Corpuscular Volume 96.8 fl (80-100); Mean Platelet Volume 10.2 fl (7.4-10.4); Platelet Count Result 283 k/mm3 (150-375); Red Blood Count 4.74 M/mm3 (4.2-5.4); Red Cell Distribution Width 12.9 % (11.5-14.5); White Blood Count 10.8 K/mm3 (4.5-10.0)
[2023-03-17 07:34] LABS: Alanine Aminotransferase 22 U/L (6-35); Alkaline Phosphatase 55 U/L (38-126); Anion Gap 4 mmol/L (8-16); Aspartate Amino Transferase 21 U/L (14-36); Bilirubin,Total 1.8 mg/dL (0.2-1.3); Blood Urea Nitrogen 19 mg/dL (7-17); CRP < 0.5 mg/dL (<1.0); Calcium 9.1 mg/dL (8.4-10.2); Carbon Dioxide 29 mmol/L (22-30); Chloride 102 mmol/L (98-107); Estimated Glomerular Filt Rate > 60; Glucose 83 mg/dL (65-110); Sodium 135 mmol/L (137-145)
[2023-03-17 07:49] LABS: Erythrocyte Sedimentation Rate 15 mm/hr (0-20)
[2023-03-17 08:21] LABS: Appearance Urine Cloudy (Clear); Bacteria Urine None Seen /hpf; Bilirubin Urine Negative (Negative); Blood Urine Negative (Negative); Color Urine Yellow (Yellow); Glucose Urine UA Negative (Negative); Ketones Urine Negative (Negative); Leukocyte Esterase Ur Negative LEU/UL (Negative); Need Manual Microscopic Reviewed; Nitrate Urine Negative (Negative); Non Pathogenic Casts 0-2; Protein Urine Negative (Negative); Specific Grav Ur 1.007 (1.001-1.035); Squamous Epithelial Cell Urine Few /hpf (Few); Urobilinogen Urine 0.2 mg/dL (<2.0); WBC Urine 0-5 /hpf
[2023-03-17 08:30] LABS: Add Urine Microscopic? YES
== END 2023-03-17 06:48 | disposition home or self-care (01) ==
LOC: ANHLAB 06:51
PROVIDERS: PCP Family Medicine; Visit Provider Internal Medicine
DX: M31.6 Other giant cell arteritis (principal); R89.9 Unspecified abnormal finding in specimens from other organs, systems and tissues; M19.90 Unspecified osteoarthritis, unspecified site
CPT/HCPCS: 36415; 80053; 81001; 85027; 85652; 86140

== ENCOUNTER 2023-04-17 09:56 | Outpatient (CLI) | payer MEDICARE, BC, OTHER, SELFPAY ==
--- NOTE | ~2023-04-17 | MM_ITS ---
EXAMINATION: MM screening flash BI w ubaldo HISTORY: Screening mammogram TECHNIQUE: Craniocaudal and mediolateral oblique 3-D tomosynthesis images were obtained and synthetic 2-D images were generated. CAD analysis was submitted and interpreted. COMPARISON: April 15, 2017, April 24, 2016 bilateral screening mammogram examinations BREAST PARENCHYMAL COMPOSITION: There are scattered areas of fibroglandular density. FINDINGS: There is no evidence of suspicious mass, calcification, or architectural distortion to sugg est malignancy in either breast. There has been no suspicious interval change. IMPRESSION: 1. No mammographic evidence of malignancy. 2. Recommend routine screening mammography in one year. BI-RADS Category 1: Negative Reviewed, dictated and finalized at location A. INSPECTOR
== END 2023-04-17 09:57 | disposition home or self-care (01) ==
PROVIDERS: PCP Family Medicine; Visit Provider Family Medicine
DX: Z12.31 Encounter for screening mammogram for malignant neoplasm of breast (principal)
CPT/HCPCS: 77063; 77067

== ENCOUNTER 2023-04-21 06:43 | Outpatient (CLI) | payer MEDICARE, BC, OTHER, SELFPAY ==
[2023-04-21 07:52] LABS: Appearance Urine Clear (Clear); Bilirubin Urine Negative (Negative); Blood Urine Negative (Negative); Color Urine Yellow (Yellow); Glucose Urine UA Negative (Negative); Ketones Urine Negative (Negative); Leukocyte Esterase Ur Negative LEU/UL (Negative); Nitrate Urine Negative (Negative); Protein Urine Negative (Negative); Specific Grav Ur 1.008 (1.001-1.035); Urobilinogen Urine 0.2 mg/dL (<2.0)
[2023-04-21 08:01] LABS: Add Urine Microscopic? NO
[2023-04-21 08:13] LABS: Alanine Aminotransferase 23 U/L (6-35); Alkaline Phosphatase 56 U/L (38-126); Anion Gap 3 mmol/L (8-16); Aspartate Amino Transferase 24 U/L (14-36); Bilirubin,Total 1.3 mg/dL (0.2-1.3); Blood Urea Nitrogen 16 mg/dL (7-17); Calcium 9.4 mg/dL (8.4-10.2); Carbon Dioxide 31 mmol/L (22-30); Chloride 101 mmol/L (98-107); Estimated Glomerular Filt Rate > 60; Glucose 86 mg/dL (65-110); Potassium 4.1 mmol/L (3.4-5.0); Sodium 135 mmol/L (137-145)
== END 2023-04-21 06:44 | disposition home or self-care (01) ==
PROVIDERS: PCP Family Medicine; Visit Provider Physician Assistant
DX: R17 Unspecified jaundice (principal); R31.9 Hematuria, unspecified
CPT/HCPCS: 36415; 80053; 81003

== ENCOUNTER 2023-05-01 06:47 | Outpatient (CLI) | payer MEDICARE, BC, OTHER, SELFPAY ==
[2023-05-01 08:43] LABS: Vitamin D 25 Hydroxy 29.2 ng/mL
[2023-05-04 22:39] LABS: Collagen Type I C-Telopeptide 199 pg/mL (***); Osteocalcin 10 ng/mL (8-32)
== END 2023-05-01 06:48 | disposition home or self-care (01) ==
PROVIDERS: PCP Family Medicine
DX: M85.89 Other specified disorders of bone density and structure, multiple sites (principal)
CPT/HCPCS: 36415; 82306; 82523; 83937

== ENCOUNTER 2023-09-02 12:47 | Outpatient (CLI) | payer MEDICARE, BC, OTHER, SELFPAY ==
--- NOTE | ~2023-09-02 | XR_ITS ---
EXAMINATION: XR shoulder RT min 2V, XR shoulder LT min 2V DATE: 09/02/2023 13:08 INDICATION: Bilateral shoulder pain TECHNIQUE: 1. AP internally and externally rotated, AP oblique externally rotated and transscapular Y views of t he right shoulder were obtained. 2. AP internally and externally rotated, AP oblique externally rotated and transscapular Y views of t he left shoulder were obtained. COMPARISON: None FINDINGS: There is widening of the right acromioclavicular joint appears secondary to prior distal clavicle res ection. Otherwise normal alignment at the bilateral shoulders. No fracture. Mild bilateral glenohume ral osteoarthritis. Large heterotopic ossicle along the posterior medial neck of the proximal right h umerus. There is also mild osteoarthritis at the left acromioclavicular joint. Indeterminate 1.2 cm n odule at the right lung base likely in the right middle lobe. Left lung is clear. No pleural effusion or pneumothorax. Calcified right hilar lymph nodes consistent with old granulomatous disease. Soft t issues are unremarkable. IMPRESSION: 1. 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 2. Indeterminate 1.2 cm right middle lobe nodule. Recommend further evaluation with low-dose noncontr ast chest CT. Reviewed, dictated and finalized at location B. IMPRESSION: 1. 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 2. Indeterminate 1.2 cm right middle lobe nodule. Recommend further evaluation with low-dose noncontrast chest CT.
== END 2023-09-02 12:48 | disposition home or self-care (01) ==
LOC: ANHIMG 12:51
PROVIDERS: PCP Family Medicine; Visit Provider Orthopaedic Surgery
DX: M19.011 Primary osteoarthritis, right shoulder (principal); M19.012 Primary osteoarthritis, left shoulder
CPT/HCPCS: 73030

== ENCOUNTER 2023-09-29 08:04 | Outpatient (CLI) | payer MEDICARE, BC, OTHER, SELFPAY ==
--- NOTE | ~2023-09-29 | CT_ITS ---
EXAMINATION: CT diagnostic chest wo con DATE: 09/29/2023 08:32 INDICATION: pulm nodule noted on shoulder XR TECHNIQUE: Computed tomography (CT) of the chest was performed without intravenous contrast. Addition al 3D reconstructions utilizing coronal maximum intensity projection (MIP) were performed. Automated exposure control and iterative reconstruction technique were employed. The dose-length product was 54 .67 mGy-cm. COMPARISON: None FINDINGS: Calcified right middle lobe nodule and calcified right hilar lymph nodes consistent with old granulom atous disease. No other suspicious pulmonary nodules, pulmonary edema, pleural effusion or pneumothor ax. Heart size is normal. Ectatic ascending thoracic aorta measuring up to 4.0 cm. No pathologically enlarged abdominal or pelvic lymphadenopathy. Visualized upper abdomen is unremarkable. Mild thoracic levocurvature with moderate to severe spondylosis and chronic minimal anterior wedging of a couple m id thoracic vertebral bodies. IMPRESSION: 1. Calcite right middle lobe nodule and calcified right hilar lymph nodes consistent with old granulo matous disease requiring no further follow-up. No suspicious pulmonary nodules identified. Reviewed, dictated and finalized at location A. IMPRESSION: 1. Calcite right middle lobe nodule and calcified right hilar lymph nodes consi stent with old granulomatous disease requiring no further follow-up. No suspici ous pulmonary nodules identified.
== END 2023-09-29 08:05 ==
LOC: MICIMG 08:05
PROVIDERS: PCP Family Medicine; Visit Provider Physician Assistant
DX: R91.1 Solitary pulmonary nodule (principal)
CPT/HCPCS: 71250

== ENCOUNTER 2023-10-01 12:33 | Outpatient (CLI) | payer MEDICARE, BC, OTHER, SELFPAY ==
--- NOTE | ~2023-10-01 | MR_ITS ---
EXAMINATION: MR shoulder LT wo con DATE: 10/01/2023 13:41 INDICATION: Left shoulder pain TECHNIQUE: Magnetic resonance imaging (MRI) of the left shoulder was performed without intravenous co ntrast. Sequences included axial PD-weighted FS FSE, coronal oblique PD-weighted FS FSE, coronal obli que T2-weighted FS FSE, sagittal PD-weighted FS FSE, and sagittal T1-weighted SE. COMPARISON: None. FINDINGS: Coracoacromial arch: The acromion undersurface is curved in morphology (type II). The coracoacromial ligament is normal. M ild to moderate acromioclavicular osteoarthritis. Rotator cuff: Mild supraspinatus and infraspinatus tendinopathy. There is mild partial-thickness distal supraspinat us tendon tear involving approximately one third of the tendon thickness which begins along the bursa l surface anteriorly extending 1 cm posteriorly transitioning into intrasubstance tear along the supe rior facet footplate of the posterior supraspinatus tendon. The teres minor and subscapularis tendons are normal. Normal rotator cuff muscle bulk and signal. Biceps tendon, glenoid labrum and glenohumeral cartilage: Long head of the biceps tendon is normal. Amorphous mild increased signal consistent with degenerativ e tearing of the posterosuperior glenoid labrum. Mild partial-thickness cartilage loss with chondral surface regularity along the superomedial aspect of the humeral head and inferior half of the glenoid . Small marginal osteophyte along the inferior humeral head. Fluid: Physiologic amount of fluid in the glenohumeral joint and biceps tendon sheath. Mild synovitis at the axillary recess. No loose osteochondral bodies. Small amount of fluid in the subacromial/subdeltoid bursa consistent with mild bursitis. Bones: Normal marrow signal with no edema, fracture or abnormal marrow replacing process. IMPRESSION: 1. Mild supraspinatus and infraspinatus tendinopathy with small mild partial-thickness distal suprasp inatus tendon tear beginning anteriorly at the bursal surface and extending posteriorly as an intrasu bstance tear. 2. Mild glenohumeral osteoarthritis with degeneration of the posterosuperior glenoid labrum. 3. Mild to moderate acromioclavicular osteoarthritis with mild underlying subacromial/subdeltoid burs itis. Reviewed, dictated and finalized at location A. IMPRESSION: 1. Mild supraspinatus and infraspinatus tendinopathy with small mild partial-th ickness distal supraspinatus tendon tear beginning anteriorly at the bursal zamzam face and extending posteriorly as an intrasubstance tear. 2. Mild glenohumeral osteoarthritis with degeneration of the posterosuperior gl enoid labrum. 3. Mild to moderate acromioclavicular osteoarthritis with mild underlying subac romial/subdeltoid bursitis.
--- NOTE | ~2023-10-01 | MR_ITS ---
EXAMINATION: MR shoulder RT wo con DATE: 10/01/2023 13:41 INDICATION: Right shoulder pain TECHNIQUE: Magnetic resonance imaging (MRI) of the right shoulder was performed without intravenous c ontrast. Sequences included axial PD-weighted FS FSE, coronal oblique PD-weighted FS FSE, coronal obl ique T2-weighted FS FSE, sagittal PD-weighted FS FSE, and sagittal T1-weighted SE. COMPARISON: None. FINDINGS: Coracoacromial arch: Postoperative changes of prior distal clavicle resection. The acromion undersurface is curved in morp hology (type II) but appears thickened and with foci susceptibility artifact along the anterior later al margin suggesting prior acromioplasty. Rotator cuff: Mild supraspinatus and infraspinatus tendinopathy. There multiple foci of susceptibility artifact francisco ng the distal supraspinatus tendon and along the lateral margin of the greater tuberosity suggesting prior rotator cuff repair. No evident recurrent tear. Teres minor and subscapularis tendons are maulik l. Normal rotator cuff muscle bulk and signal. Biceps tendon, glenoid labrum and glenohumeral cartilage: Long head of the biceps tendon is normal. There is a linear tear across the 10:00-12:00 position of t he posterior superior glenoid labrum. Mild glenohumeral osteoarthritis with partial-thickness cartila ge loss with chondral surface regularity along the superior and superomedial aspect of the humeral he ad including a tiny focus of underlying subarticular edema-like signal change. Small region of partia l-thickness chondral ulceration along the posterior rim of the glenoid adjacent to marginal ossified swelling the inferomedial aspect of the humeral head. Fluid: Physiologic amount of fluid in the glenohumeral joint and biceps tendon sheath. There is synovitis an d a 14 x 8 x 12 number of this osteochondral body at the axillary recess. Small amount of fluid in t he subacromial/subdeltoid bursa consistent with mild bursitis. Bones: Normal marrow signal with no edema, fracture or abnormal marrow replacing process. IMPRESSION: 1. Mild supraspinatus and infraspinatus tendinopathy with postoperative changes suggesting prior supr aspinatus tendon repair. No evident recurrent tear. 2. Postoperative change of prior distal clavicle resection and likely also acromioplasty. 3. Mild glenohumeral osteoarthritis with SLAP tear at the posterosuperior glenoid labrum. 4. Mild subacromial/subdeltoid bursitis. Reviewed, dictated and finalized at location A. IMPRESSION: 1. Mild supraspinatus and infraspinatus tendinopathy with postoperative changes suggesting prior supraspinatus tendon repair. No evident recurrent tear. 2. Postoperative change of prior distal clavicle resection and likely also acro mioplasty. 3. Mild glenohumeral osteoarthritis with SLAP tear at the posterosuperior gleno id labrum. 4. Mild subacromial/subdeltoid bursitis.
== END 2023-10-01 12:34 | disposition home or self-care (01) ==
PROVIDERS: PCP Family Medicine; Visit Provider Orthopaedic Surgery
DX: M25.512 Pain in left shoulder (principal); M47.812 Spondylosis without myelopathy or radiculopathy, cervical region; M19.011 Primary osteoarthritis, right shoulder; M75.51 Bursitis of right shoulder; M19.012 Primary osteoarthritis, left shoulder
CPT/HCPCS: 73221

== ENCOUNTER 2023-12-25 06:55 | Outpatient (CLI) | payer MEDICARE, BC, OTHER, SELFPAY ==
--- NOTE | ~2023-12-25 | XR_ITS ---
Right Shoulder Technique: AP and scapular Y views were obtained. Clinical History: Glenoid labrum lesion COMPARISON: 09/02/2023 Findings: No fracture or dislocation is seen. Osseous alignment is anatomic. The glenohumeral and acr omioclavicular joint spaces are preserved. Probable prior resection of the distal clavicle, unchanged . 17 mm ovoid loose body present in the axillary pouch of the joint.. Impression: 17 mm ovoid loose body in the axillary pouch of the glenohumeral joint. No other significant findings. No other interval change from prior exam. Reviewed, dictated and finalized at location . Impression: 17 mm ovoid loose body in the axillary pouch of the glenohumeral joint. No other significant findings. No other interval change from prior exam.
--- NOTE | ~2023-12-25 | XR_ITS ---
Left Shoulder Technique: AP and scapular Y views were obtained. Clinical History: Rotator cuff tear Findings: No fracture or dislocation is seen. Osseous alignment is anatomic. The glenohumeral and acr omioclavicular joints demonstrate minimal degenerative change. Soft tissues are unremarkable. Impression: Minimal degenerative changes, as above. Reviewed, dictated and finalized at location . Impression: Minimal degenerative changes, as above.
== END 2023-12-25 06:56 | disposition home or self-care (01) ==
PROVIDERS: PCP Family Medicine; Visit Provider Orthopaedic Surgery
DX: M75.122 Complete rotator cuff tear or rupture of left shoulder, not specified as traumatic (principal); S43.431A Superior glenoid labrum lesion of right shoulder, initial encounter; X58.XXXA Exposure to other specified factors, initial encounter
CPT/HCPCS: 73030

== ENCOUNTER 2024-01-26 12:37 | Outpatient (CLI) | payer MEDICARE, BC, OTHER, SELFPAY ==
--- NOTE | 2024-01-26 13:13 | ECG_ITS ---
Test Date: 2024-01-26 13:17:54 Measurements Intervals [place]vere Rate: 76 P: 3 PA: 159 QRS: -5 QRSD: 85 T: 23 QT: 378 QTc: 426 Interpretive Statements SINUS RHYTHM LOW QRS VOLTAGE IN PRECORDIAL LEAD POOR R WAVE PROGRESSION BASELINE ARTIFACT- I, II, III, AVR, AVL, AVF BORDERLINE ECG No previous ECG available for comparison Electronically Signed On 01-26-2024 13:19:28 ANALYTICAL DATA SCIENTIST by Amarjit Duke D.O.
== END 2024-01-26 12:38 | disposition home or self-care (01) ==
LOC: ANHSURGERY 12:42
PROVIDERS: PCP Family Medicine; Visit Provider Orthopaedic Surgery
DX: Z01.818 Encounter for other preprocedural examination (principal); I10 Essential (primary) hypertension
CPT/HCPCS: 93005

== ENCOUNTER 2024-02-03 01:13 | Day surgery (SDC) | payer MEDICARE, BC, OTHER, SELFPAY ==
[2024-01-22 08:19] VITALS: BMI 23.3
--- NOTE | 2024-01-22 08:46 | PC.NURSE ---
Report to the Outpatient Waiting Room, entrance under the green pavilion located off [facility], at time ___10:30AM____ on date ___02/03/24____. Planned Procedure Time: __12:30PM .? Time changes happen often and if your time is changed the preop area will call you the afternoon before. - You and your visitor will be asked to self-screen and do not enter if you have any COVID symptoms. Please call surgeon if you need to reschedule. - A mask is optional within the hospital at this time. Patients may have clear liquids (water, carbonated beverages, clear teas, apple juice) until 3 hours prior to surgery with a maximum of 20 ounces. - No food from midnight until time of surgery and no smoking. Take only the following medications with a SIP of water on the morning of surgery: DOXYCYCLINE DO NOT STOP ANY OF YOUR OTHER PRESCRIPTION MEDICATIONS PRIOR TO SURGERY EXCEPT THE FOLLOWING Medications to discontinue per physician HOLD ALL NSAIDS(ALEVE) 7 DAYS PRE-OP PER DR KELLY- LAST DOSE 01/26/24. HOLD ALL VITAMINS/SUPPLEMENTS 3 DAYS PRE-OP PER ANESTHESIA- LAST DOSE 01/30/24. Please no make-up, nail serbian, hairspray, perfume, deodorant, or body powder the day of surgery.? No jewelry (including any body piercings) or valuables the day of surgery, leave them at home.? Please take a shower or bath the night before, or the morning of, surgery with an antibacterial soap.? Wear comfortable, loose fitting clothing.? - Jewelry must be removed prior to entering the operating room.? Rings and piercings that are not removed may be cut off. - The hospital will not accept responsibility for valuables.? - Please leave all valuables, including medications, at home the day of surgery. If you are going home after surgery, a licensed lumber stacker driver must drive you home.? - NO public transportation without another adult if you receive anesthesia. - We recommend that an adult stay with you for 24 hours following discharge. - We also recommend that you do not drive, make important decision, drink alcoholic beverages, or take any drugs that were not prescribed by your health care provider for at least 24 hours after your discharge time. Follow any additional instructions given to you from your surgeon. Telephone instructions given to ____PATIENT and asked if any additional questions and then verbalized understanding. Patient advised to call surgeon office or pre surgery nurse liaison [phone] if any additional questions.
[2024-02-03] VITALS (9 sets, daily range): BP systolic 102–144; BP diastolic 56–86; PULSE 67–78; RESP 12–18; TEMP 36.1–37; O2SAT 95–100
--- NOTE | 2024-02-03 07:17 | WPDHPUPDATE1 ---
History and Physical Update Update Date/Time: 02/03/24 07:17 History and Physical has been reviewed, including an updated exam of the patient. There are NO changes in the patient's condition. Risks, benefits, and alternatives have been discussed and questions answered. Patient agrees to proceed with procedure.
[2024-02-03] MEDS: LACTATED RINGERS 1,000 ML 30 ML IV CONT ×2 (11:00→15:32)
[2024-02-03] MEDS: KETOROLAC 15 MG/ML VIAL (*BKC) IV PUSH (11:30)
[2024-02-03] MEDS: ACETAMINOPHEN 500 MG TABLET 1000 MG PO (11:30)
--- NOTE | 2024-02-03 12:53 | WPDANESPNB ---
Anes - Peripheral Nerve Block Date/Time: 02/03/24 12:53 I have discussed with the patient/family/POA the placement of a peripheral nerve block for post-operative pain management, including associated risks, benefits, complications, and side effects. Alternative methods of post-operative analgesia were detailed. Questions were solicited and answers provided to the satisfaction of the patient/family/POA. Time-Out: A pre-procedural Time-Out was completed immediately before starting the procedure and confirmed: Patient Identification, Site, Procedure, Patient Position and the Availability of Requisite Equipment. Clinical Indications: Acute post-operative pain management requested by the operative surgeon. Nerve Block Insertion Note Anes-nerve block: interscalene right Patient position: supine Skin prep: chlorhexidine Needle: 22 gauge, stimulating, insulated echogenic needle. Needle length: 80 mm Technique: ultrasound Injectate: other (Bupiv 0.5% 14 mls. ) Observations: tolerated well Complications: none Procedure start time:: 1240 Procedure end time:: 1247
--- NOTE | 2024-02-03 12:54 | P.PNAN_ITS ---
Anes - Initial Pre Proc Eval Procedure: Operation Date: 02/03/24 12:30 Proposed Procedures p Right Shoulder Arthroscopic Rotator Cuff Repair, Biceps Tenodesis, Debridement - Fabrice Donahue MD Date/Time: 02/03/24 12:54 Surgeon: Fabrice Donahue MD Pre Op Diagnosis: right shoulder slap tear, partial rot. cuff tear Patient Data Age: 68 Gender: F Height: 1.67 m Weight: 68.2 kg Last Vital Signs Temp 98.6 F 02/03/24 11:00 Pulse 67 02/03/24 11:00 Resp 16 02/03/24 11:00 BP 135/85 02/03/24 11:00 Pulse Ox 99 02/03/24 11:00 O2 Del Method Room Air 02/03/24 11:00 Allergies Allergy/AdvReac Type Severity Reaction Status Date / Time nickel Allergy Mild swelling Verified 02/03/24 11:29 and itch bee venom protein (honey bee) Allergy Unknown Swelling Verified 02/03/24 11:29 poison yvette extract Allergy Unknown Itching & Verified 02/03/24 11:29 SWELLING Home Medications Medication Instructions Recorded Confirmed Type cyclosporine 0.05 % eye drops in a 1 drop ophthalmic (eye) Q12H 04/05/19 02/03/24 History dropperette (Restasis) calcium carbonate (Antacid Calcium) 600 mg PO BID 05/23/21 02/03/24 History fiber 1 tablet PO DAILY 12/28/21 02/03/24 History metronidazole 1 % topical gel 1 applic topical DAILY #60 grams 09/19/22 02/03/24 Rx pantoprazole 40 mg tablet,delayed 40 mg PO QAM #60 tabs 01/29/23 02/03/24 Rx release (Protonix) acetaminophen 650 mg 1,300 mg PO Q12H PRN Pain 01/22/24 02/03/24 History tablet,extended release (Tylenol Arthritis Pain) cholecalciferol (vitamin D3) 50 50 mcg PO DAILY 01/22/24 02/03/24 History mcg (2,000 unit) capsule doxycycline monohydrate 50 mg 50 mg PO DAILY 01/22/24 02/03/24 History tablet lisinopril 10 mg tablet 10 mg PO QACDINNER 01/22/24 02/03/24 History naproxen sodium 220 mg capsule 220 mg PO BID PRN Pain 01/22/24 02/03/24 History (Aleve) Patient hx anesthesia problems: none Family hx anesthesia problems: none Results Review: All pre-operative results and documents have been reviewed as part of the pre- operative evaluation. [facility] Past Medical History Medical History Acute sinusitis Bronchitis Cervical radiculopathy due to degenerative joint disease of spine Congestion of left ear Degenerative arthritis of knee, bilateral Degenerative arthritis of lumbar spine Dry eye syndrome Folliculitis GERD (gastroesophageal reflux disease) Hearing loss of aging Hearing loss of both ears Inflammatory arthritis Inflammatory arthritis Polymyalgia rheumatica Prolapse of vaginal vault after hysterectomy Vaginal discharge Surgical History Surgical History History of hysterectomy 1983 History of rotator cuff surgery 2005 Tear meniscus knee arthroscopy right 2018 left 2019 Family History Family History Sibling Carcinoma of colon, Onset Age: 69 Father Family history of lung cancer, Onset Age: 68 Social History Social History Social History: Smoking status: Never smoker Second hand tobacco smoke exposure: No Alcohol intake: current Drinks per week: 7 Substance use: never Substance use type: does not use Do You Feel Safe in your Home?: Yes Lack of Transportation: No Lack of Food: Never True Current Housing: I Have Housing Concerned About Future Housing: No Difficulty Paying Gas/Electric Bills: No Difficulty Paying for Meds: No Currently Unemployed: No Education: High School Diploma/GED Difficulty w/ Childcare or Family Care: No Living arrangements: with family Additional living arrangements comments: [place] Occupation/Education: retired Gender identity (if verbalized by the patient): Female Sexual Orientation (if Verbalized by the Patient): Straight or Heterosexual Spiritual care concerns: No Anes - Eval Final PreProcedure Day of Procedure 02/03/24 12:54 Patient weight: normal Heart: regular rate and rhythm Lungs: clear to auscultation Airway: Mallampati scale class II Neurological: alert and oriented Last oral intake: >/= 8 hours ASA classification: II Emergent: no Anesthetic plan: proceed Anesthesia type and monitoring: general ETT and standard monitoring Results Review: All pre-operative results and documents have been reviewed as part of the pre- operative evaluation. HTN, EKG w NSR. Informed Consent: The patient's anesthetic plan and its attendant risks and benefits were discussed with the patient/family/POA. Questions were solicited and answers provided to the satisfaction of the patient/family/POA.
[2024-02-03] MEDS: ceFAZolin 2 GM/D5W 50 ML 2 GM/50 ML BAG IVPB (13:08)
--- NOTE | 2024-02-03 16:15 | P.OP_ITS ---
Procedure Note - Detailed Date of Procedure 02/03/24 Pre-op Diagnosis Right shoulder rotator cuff tear, slap tear, loose body. History of prior rotator cuff repair. Post-op Diagnosis Same Procedure Performed 1. Right shoulder arthroscopic rotator cuff repair 2. Arthroscopic loose body removal (12 x 18 mm) 3. Extensive debridement including biceps tenotomy, Labral debridement, and chondroplasty. Surgeon Fabrice Donahue MD Coordinator Skill Training Program Sarah Beth Vidal PA-C Anesthesia General and Regional (Interscalene block.) Findings The previous supraspinatus tear was retorn. There were a few articular fibers intact. There were moderate degenerative changes at the humeral side. There w as a defect on the inferior humeral head which appeared to correspond to a large cartilaginous loose body which measured 12 mm x 18 mm. This was removed through a separate posterior inferior portal. The rotator cuff was repaired with 2 bone tunnels and 6 sutures and a margin convergence mattress suture. There was some degeneration of the biceps tendon and labrum. This was treated with debridement and tenotomy. Description of Procedure Preoperative antibiotics were given. An interscalene block was administered in the preoperative area. The patient was bought brought to the operating room. A general anesthetic was administered. The patient was carefully positioned in the beach chair position. The head and neck were carefully positioned. The non operative extremity was also carefully positioned. The shoulder was prepped and draped in the usual sterile fashion. Examination was performed. There were no abnormal findings. Standard posterior and anterior arthroscopic portals were established. Inflow achieved with the arthroscopic pump using saline and epinephrine. The glenohumeral joint was carefully inspected. The humerus s howed moderate degenerative changes which were treated with chondroplasty. The biceps showed mild tendinosis and there was degenerative fraying of the labrum. A tenotomy was performed and the labrum was debrided. The glenoid itself did not have significant degenerative changes. It large, 12 x 18 mm loose body was identified in the axillary pouch. This corresponded to the finding on the MRI. The anterior portal could not be used to remove the loose body. Similarly the posterior portal could not get the ankle either while viewing anteriorly. It was necessary to create an accessory posterior inferior portal. The few fibers of the articular rotator cuff that remained were marked with a PDS suture. Attention was turned to the subacromial space. The bursa was rather scarred and this was excised. It was clear that less than 5% of the fibers were intact and were easily debrided with simple shaving. A medium to large size tear defect remained. Fortunately the tissue was fairly mobile. Less so at the central aspect. There was evidence of lateral sutures. Two bone tunnels were created at the articular margin. Three sutures were shuttled through the tunnel with the ArthroTunneler device. All 6 sutures were passed into the rotator cuff. An additional margin convergence suture was placed slightly more lateral. The sutures were tied arthroscopically and the rotator cuff tendon was nicely of reapproximated to the greater tuberosity footprint, without undue tension. The arthroscopic instruments were removed. The wounds were closed with 4-0 Monocryl subcuticular suture and steri strips. There were no complications. A sling was applied and the patient brought to the recovery room. Estimated Blood Loss 20 Drains No Pathology None sent Complications No immediate complications Condition Stable Disposition PACU [facility] Billing Surgery - Charge Forward: Surgery Billing
[2024-02-03] MEDS: oxyCODONE HCL (*CRX) 5 MG TAB IR PO (17:12)
== END 2024-02-03 17:34 | disposition home or self-care (01) ==
PROVIDERS: PCP Family Medicine; Visit Provider Orthopaedic Surgery
PROC: (CPT 29805; principal; 2024-02-03 12:30)
DX: M75.111 Incomplete rotator cuff tear or rupture of right shoulder, not specified as traumatic (principal); M24.011 Loose body in right shoulder; G89.18 Other acute postprocedural pain; G89.29 Other chronic pain; M25.512 Pain in left shoulder; M25.511 Pain in right shoulder; M19.012 Primary osteoarthritis, left shoulder; M19.011 Primary osteoarthritis, right shoulder; M47.892 Other spondylosis, cervical region; M17.0 Bilateral primary osteoarthritis of knee; M51.369 Other intervertebral disc degeneration, lumbar region without mention of lumbar back pain or lower extremity pain; K21.9 Gastro-esophageal reflux disease without esophagitis; M06.4 Inflammatory polyarthropathy; M35.3 Polymyalgia rheumatica; N99.3 Prolapse of vaginal vault after hysterectomy; Z79.1 Long term (current) use of non-steroidal anti-inflammatories (NSAID); Z98.890 Other specified postprocedural states; Z80.0 Family history of malignant neoplasm of digestive organs; Z80.1 Family history of malignant neoplasm of trachea, bronchus and lung
CPT/HCPCS: 64415; 29827; 29823; A4565; A9270; J0171; J0690; J1100; J1885; J2250; J2371; J2405; J2704; J3010; J7120

== ENCOUNTER 2024-04-09 06:49 | Outpatient (CLI) | payer MEDICARE, BC, OTHER, SELFPAY ==
--- OUTSIDE RECORDS SUMMARY | 2024-04-09 06:53 | XMS_ITS | Encounter Summary ---
Author Organization [facility] Address [address] [place] [address] Care Team Providers Care Base Filler Name Role Phone Samanta Aguayo MD Primary Care Provider [phone] Reason for Visit * Reason Onset Date Comments Follow Up 01/18/2021 pt called back Encounter Details Date Type Department Care Team (Late st Contact Info) Description 01/18/2021 Telephone [facility] Pre Procedure Phase II [id number] [place] [address] Daisy Nunez, RN Follow Up (pt called back) Social History Tobacco Use Types Packs/Day Years Used Date Smoking Tobacco: Never Smokeless Tobacco: Never Alcohol Use Standard Drinks/Week Comments Yes 2 (1 standard drink = 0.6 oz pur e alcohol) Comments Unknown Sex and Gender Information Value Date Recorded Sex Assigned at Not on file Legal Sex Female 11:02 PM CDT Gender Identity Not on file Sexual Orientation Not on file COVID-19 Exposure Response Date Recorded In the last month, have you been in contact with someone who was confirmed or suspected to have Coronavirus / COVID-19? No / Unsure 12/29/2020 3:30 PM CDT documented as of this encounter Miscellaneous Notes * Telephone Encounter - Vicky Jacobo RN - 01/18/2021 9:59 AM HEALTH INFORMATION SYSTEMS TECHNICIAN 01/18/2021 9:59 AM Name: Suzette Turner Patient called back. I introduced self and purpose of the call. Have you been experiencing any fever, chills, redness or swelling at the injection site? no Any other new concerns? no How would you rate your pain relief at this time? Greater than 80% pain relief How long did it last? ongoing Did you have increased level of function, if yes please explain: now able to increase activities Did you have a reduced need for pain medication? yes Any improvement in quality of life? yes if yes please explain: Improved activity/walking ability Patient stated that she already have an appointment on January 30, [address] Barnett in clinic. Verified patient has contact information for Dr. Barnett and instructed to contact clinic with any questions or concerns at [phone] HOME Hodgson RN Underwater Roboticist - Spine & Pain HOD Procedures Office: [phone] TH INFORMATION SYSTEMS TECHNICIAN documented in this encounter Plan of Treatment Not on file documented as of this encounter Visit Diagnoses Not on filedocumented in this encounter Care Teams Base Filler Relationship Specialty Start Date End Date Samanta Aguayo MD PCP - General Family Practice 08/11/20 documented as of this encounter
--- OUTSIDE RECORDS SUMMARY | 2024-04-09 06:53 | XMS_ITS | Patient Health Summary ---
Author Organization [facility] Address [address] [place] [address] Care Team Providers Care Imcu Nurse Name Role Phone Samanta Aguayo MD Primary Care Provider + Note from [facility],non-owned Affiliates and Associated Physician Practices is amultiple site organization consisting of ambulatory clinics and hospital sitesin [place], [place], [place] and [place]. This disclosure is being madepursuant to the Care Everywhere program and may not contain all informatio navailable regarding this patient. Last updated 17.[facility] Allergies No known active allergies Medications * Be aware that medications may not be up to date on this document. Alwaysverify current medications with the patient. * Calcium 500-125 MG-UNIT Take 2 tablets by mouth once daily * RESTASIS 0.05 % ophthalmic suspension(Started 08/03/2020) INSTILL 1 DROP IN EACH EYE TWICE DAILY DIRECTED * doxycycline hyclate (VIBRAMYCIN) 50 MG capsule(Started 12/14/2019) * metroNIDAZOLE (METROGEL) 1 % gel(Started 10/18/2020) * lisinopril (Prinivil; Zestril) 10 MG tablet(Started 04/29/2023) Take 1 (one) tablet by mouth once daily * esomeprazole (NexIUM) 40 MG capsule Take 1 (one) capsule by mouth daily before dinner * predniSONE (Deltasone) 2.5 MG tablet(Started 06/04/2023) Take 1 (one) tablet by mouth Active Problems Problem Noted Date Diagnosed Date Bone lesion 01/24/2021 Social History Tobacco Use Types Packs/Day Years Used Date Smoking Tobacco: Never Smokeless Tobacco: Never Tobacco Cessation:Counseling Given: Not Answered Sex and Gender Information Value Date Recorded Sex Assigned at Not on file Gender Identity Not on file Sexual Orientation Not on file Last Filed Vital Signs Vital Sign Reading Time Taken Comments Blood Pressure 139/89 06/18/2023 1:14 PM CDT Pulse 64 06/18/2023 1:14 PM CDT Temperature 37 ??C (98.6 ??F) 06/18/2023 1:14 PM CDT Respiratory Rate 18 06/18/2023 1:14 PM CDT Oxygen Saturation 95% 06/18/2023 1:14 PM CDT Inhaled Oxygen Concentration - - Weight 70.3 kg (155 lb) 06/18/2023 1:14 PM CDT Height 170.2 cm (5' 7 ) 06/18/2023 1:14 PM CDT Body Mass Index 24.28 06/18/2023 1:14 PM CDT Procedures * XR FEMUR RIGHT 2VW(Performed 06/18/2023) Performed for Bone lesion * XR FEMUR RIGHT 2VW(Performed 07/17/2022) Performed for Bone lesion * XR FEMUR RIGHT 2VW(Performed 07/25/2021) Performed for Bone lesion * XR FEMUR RIGHT 2VW(Performed 07/25/2021) Performed for Bone lesion * XR FEMUR RIGHT 2VW(Performed 01/24/2021) Performed for Bone lesion * XR FEMUR RIGHT 2VW(Performed 10/25/2020) Performed for Bone lesion * DERMATOPATHOLOGY(Performed 05/09/2020) Results * XR FEMUR RIGHT 2VW (06/18/2023 1:02 PM CDT) Only the most recent of6 resultswithin the time period is included. Anatomical Region Laterality Modality Lower Extremity Radiographic Deepa ging 06/18/2023 1:22 PM CDT Impressions 06/18/2023 1:27 PM CDT IMPRESSION: Nonaggressive proximal femoral bone lesions, unchanged. > Interpreting Provider: Jacky Lovell MD on 06/18/2023 1:27 PM Narrative 06/18/2023 1:27 PM CDT PROCEDURE: ??XR FEMUR RIGHT 2VW DATE/TIME OF EXAM: ??06/18/2023 1:02 PM CLINICAL INFORMATION: None relevant/not provided if blank. Indication: M89.9: Bone lesion Additional History: COMPARISON: Right femur x-rays dated 07/17/2022 and 10/25/2020 TECHNIQUE: FINDINGS: A nonaggressive appearing lytic and sclerotic lesion second and in the intertrochanteric region of the femur measuring 6.2 x 3.6 cm is not changed in size or appearance since 08/25/2020. A 2.2 x 1.4 cm irregular sclerotic lesion in the inferomedial aspect of the femoral head is also unchanged. There is no femoral fracture. A focal area of cortical thickening at the lateral aspect of the midshaft and mild knee osteoarthritis are noted. Procedure Note Jacky Lovell MD - 06/18/2023 PROCEDURE: XR FEMUR RIGHT 2VW DATE/TIME OF EXAM: 06/18/2023 1:02 PM CLINICAL INFORMATION: None relevant/not provided if blank. Indication: M89.9: Bone lesion Additional History: COMPARISON: Right femur x-rays dated 07/17/2022 and 10/25/2020 TECHNIQUE: FINDINGS: A nonaggressive appearing lytic and sclerotic lesion second and in the intertrochanteric region of the femur measuring 6.2 x 3.6 cm is notchanged in size or appearance since 08/25/2020. A 2.2 x 1.4 cm irregularsclerotic lesion in the inferomedial aspect of the femoral head is also unchanged. There is no femoral fracture. A focal area of cortical thickening at the lateral aspect of the midshaft and mild knee osteoarthritis are noted. IMPRESSION: Nonaggressive proximal femoral bone lesions, unchanged. > Interpreting Provider: Jacky Lovell MD on 06/18/2023 1:27 PM Kain Caceres MD DIAGNOSTIC IMAGING ORDERABLES * DERMATOPATHOLOGY (05/09/2020 12:00 AM UI DEVELOPER) Case Report Dermatopathology Report ? Case: [id number] ? Authorizing Provider: ??Miri Bedolla MD ?Collected: ? 05/09/2020 12:00 AM ? Ordering Location: ? [facility] ?Received: ?05/10/2020 10:37 AM ? Pathologist: ? Kristel Lopez MD ? Specimen: ?Skin, suprapubic ? 1 4:09 PM [facility]ERMAT[facility] Final Diagnosis Specimen A. 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 The specimen consists of a punch biopsy measuring 8x8x9 mm, bisected. Jar 0. 1 4:09 PM [facility] Microscopic Description Specimen A. SKIN, suprapubic: There is a dome-shaped portion of skin with psoriasiform epidermal hyperplasia, compact hyperkeratosis, and fibrosis of the papillary dermis associated with a superficial perivascular lymphohistiocytic infiltrate. 1 4:09 PM [facility] Disclaimer An external and internal positive and negative controls are appropriate for the histochemical, immunohistochemical and immunofluorescence stain(s) in this case (if any), except where stated explicitly. The performance characteristics of the stain(s) cited in this report were developed and its performance characteristic determined by the Dermatopathology Laboratory at [facility], directed by Dr. Crow Lopez. These tests need not be, and therefore are not, approved by the [place] Food and Drug Administration. The tests are used for clinical purposes. Billing Codes Specimen Charges Stain Charges 73628 1 1 4:09 PM [facility] Embedded Images 1 4:09 PM [facility] Pathology/Cytolog y TISSUE SPECIMEN FROM SKIN / Unknown 05/09/2020 05/10/2020 10:37 AM UI DEVELOPER Miri Bedolla MD LAB - PATHOLOGY/CYTO LOGY ORDERABLES DERMATOPATHOLOGY LABORATORY [facility] - Department of Dermatology [facility] Specialized Medicine [address] [place] [address], [address] [phone] Care Teams Imcu Nurse Relationship Specialty Start Date End Date Samanta Aguayo MD [address] [place] [address] PCP - General 05/09/20
--- OUTSIDE RECORDS SUMMARY | 2024-04-09 06:53 | XMS_ITS | Clinical Summary ---
Author Organization [facility] Care Team Providers Care Teleservices Representative Name Role Phone Unavailable Primary Care Provider Unavailabl e Social History Tobacco Use Types Packs/Day Years Used Date Smoking Tobacco: Never Assessed Comments Unknown Sex and Gender Information Value Date Recorded Sex Assigned at Not on file Legal Sex Female 11:32 AM ENTRY LEVEL ADMINISTRATIVE ASSISTANT Gender Identity Not on file Sexual Orientation Not on file Plan of Treatment Health Maintenance Due Date Last Done Comments DEXA Bone Density 1955 Hepatitis C Virus (HCV) Screening 1955 TdaP Immunization 1955 Colonoscopy 1998 Colorectal Cancer Screening 1998 Cologuard 09/02/2003 Immunochemical Fecal Occult Blood 09/02/2003 Mammogram 09/02/2003 Pneumococcal Immunization (5 0+ years) (1 of 1 - PCV) 09/02/2003 Zoster Immunization (1 of 2) 09/02/2003 Influenza Immunization (#1) 2023 SARS-COV-2 Immunization ( - 2023- season) 2023 Respiratory Syncytial Virus (RSV) Immunization (Adult) (1 - 1-dose 75+ series) 2028 Hepatitis B Immunization Aged Out No longer eligible based on patient's age to complete this topic Meningococcal Immunization (ACWY) Aged Out No longer eligible based on patient's age to complete this topic Rotavirus Immunization Aged Out No lo nger eligible based on patient's age to complete this topic
--- OUTSIDE RECORDS SUMMARY | 2024-04-09 06:53 | XMS_ITS | Referral Summary ---
Author Organization [facility] Address [address] [place] [address] Care Team Providers Care Information Developer Name Role Phone Unknown, Notinfile Primary Care Provider Unavail able Encounters Date Type Department Care Team Description 04/07/2024 Orders Only [facility] [address] [place] [address] [place] [address] Rosalie Man MD Osteopenia of multiple sites (Primary Dx) from Last 3 Months Allergies Active Allergy Reactions Criticality Noted Date Comments Nickel Medications RESTASIS 0.05 % ophthalmic emulsion INT 1 GTT IN OU BID 3 01/14/2018 Active doxycycline hyclate (VIBRAMYCIN) 50 mg capsule TK 1 C PO QD 1 03/16/2018 Activ e calcium carbonate-vitami n D3 500 mg(1,250mg) -125 unit per tablet Take 2 tablets by mouth daily Ca 1200 mg & Vit D 1000 mg Active azelastine (ASTELIN) 137 mcg (0.1 %) nasal spray U 1 SPRAY IEN Q 12 H 04/05/2019 Active azithromycin (ZITHROMAX) 250 mg tablet 04/05/2019 Active omeprazole (PriLOSEC) 40 mg capsule TK 1 C PO QD AC 01/12/2019 Active estradioL (ESTRACE) 0.01 % (0.1 mg/gram) vaginal cream 03/04/2022 Activ e metroNIDAZOLE (METROGEL) 1 % gel 10/18/2020 Active predniSONE (DELTASONE) 2.5 mg tablet Take 1 tablet (2.5 mg) by mouth 2 (two) times a day 04/04/2022 Active doxycycline monohydrate (ADOXA) 50 mg tablet Take 1 tablet (50 mg total) by mouth daily 04/15/2023 Active lisinopriL (PRINIVIL,ZESTRI L) 5 mg tablet Take 1 tablet (5 mg total) by mouth daily 04/16/2023 Active LISINOPRIL ORAL 02/16/[address] (PROTONIX) 40 mg EC tablet Take 1 tablet (40 mg total) by mouth every morning 03/27/2023 Active Active Problems Problem Noted Date Diagnosed Date 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 Social History Tobacco Use Types Packs/Day Years Used Date Smoking Tobacco: Never Smokeless Tobacco: Never Tobacco Cessation:Counseling Given: Not Answered Personal Safety Answer Date Recorded Getting School Help Needed Not on file 04/03 Comments Unknown Sex and Gender Information Value Date Recorded Sex Assigned at Not on file Legal Sex Female 5:06 AM PARCEL POST CLERK Gender Identity Not on file Sexual Orientation Not on file Last Filed Vital Signs Vital Sign Reading Time Taken Comments Blood Pressure - - Pulse - - Temperature - - Respiratory Rate - - Oxygen Saturation - - Inhaled Oxygen Concentration - - Weight 74.2 kg (163 lb 8 oz) 04/23/2023 11:23 AM PARCEL POST CLERK Height 167 cm (5' 5.75 ) 04/23/2023 11:23 AM PARCEL POST CLERK Body Mass Index 26.59 04/23/2023 11:23 AM PARCEL POST CLERK Plan of Treatment Not on file Procedures Procedure Name Priority Date/Time Associated Diagnosis Comments DEXA TBS AXIAL SKELETON BONE DENSITY 1 OR MORE SITES Schedule Routine, Read Routine (OP Routine) 04/23/2023 11:18 AM PARCEL POST CLERK Osteopenia of multiple sites from Last 3 Months or Most Recently Relevant to Health Maintenance Results * Dexa TBS Axial Skeleton Bone Density 1 or more sites (04/23/2023 11:18 AM PARCEL POST CLERK) Anatomical Region Laterality Modality Wrist, Body N/A Radiographic Deepa ging Narrative 04/23/2023 12:14 PM PARCEL POST CLERK Patient Name: Suzette Louise Date of : 1955 Date of scan: 04/23/2023 Bone mineral density was performed on a [employer] Discovery Densitometer. ?? Based on machine cross-calibration and precision studies the least significant changes of this densitometer is 0.024 g/cm2 at the spine, 0.020 g/cm2 at the total proximal femur, and 0.014g/cm2 at the forearm. HISTORY: This is a 67 y.o. postmenopausal female with a history of low bone mass and rheumatoid arthritis. She reports that she has never smoked. She has never used smokeless tobacco. Currently on treatment with calcium, vitamin D, and glucocorticoids, previously treated with alendronate (Fosamax), ibandronate (Boniva), zoledronic acid (Reclast), teriparatide (Forteo), and hormone replacement therapy, and current complaint of neck pain. INDICATIONS: Menopause status, treatment monitoring, currently on 5 mg of glucocorticoids for the past 1 year(s), and history of low bone mass. FINDINGS: BONE MINERAL DENSITY OF THE LUMBAR SPINE Bone Mineral Density (BMD) of the lumbar spine was measured from L1- L4 and the average density was calculated to be 0.937 gm/cm2. This corresponds to a T-score (standard deviations from the mean of young adults) of -1.0. When compared to the previous study of 04/16/2022 there has been no significant changes in bone density. BONE MINERAL DENSITY OF THE PROXIMAL FEMUR Bone Mineral Density (BMD) of the left hip total was found to be 0.748 gm/cm2. This corresponds to a T-score standard deviations from the mean of young adults of -1.6. Femoral neck is 0.602 gm/cm2 with a T-score (standard deviations from the mean of young adults) of -2.2. When compared to the previous study of 04/16/2022 there has been no significant changes in bone density. BONE MINERAL DENSITY OF THE FOREARM Bone Mineral density (BMD) of the left proximal 1/3 of the radius measures 0.608 gm/cm2. This corresponds to a T-score (standard deviations from the mean of young adults) of -1.4. When compared to the previous study of 04/16/2022 there has been no significant changes in bone density. A forearm bone density study was performed. SUMMARY: Bone mineral density shows evidence of low bone mass at the proximal femur and forearm and moderately increased fracture risk (Osteopenia). There has been no significant changes in bone density since previous measurement. The lumbar spine Trabecular Bone Score is 1.258 which suggests ??partially degraded bone microarchitecture compared to the general population. Final decisions regarding diagnostic or therapeutic recommendations should include BMD, TBS, additional clinical risk factors as well the clinical context of the patient. ?? Please see attached TBS results for further details. ADDITIONAL COMMENTS: Postmenopausal Women and Men Over 50: Diagnostic criteria: Osteoporosis: BMD at or below -2.5 T-score; Osteopenia (low bone mass): BMD between -1.0 and -2.5 T-score. If the patient has a history of a fragility fracture, a fracture that occurred with trauma equivalent to a fall from a standing position or less, then the diagnosis is osteoporosis regardless of bone density. The history and data sections of the bone mineral density scan were prepared by Celia Rea)(CBDT) who is accredited by the International Society of Clinical Densitometry. The overall patient assessment and scan interpretation were performed by Rosalie Man M.D. who is certified by the International Society of Clinical Densitometry. [id number] Rosalie Man MD IMG DXA PROCEDURES Final Resu lt from Last 3 Months or Most Recently Relevant to Health Maintenance Insurance [employer] MEDICARE [facility] MEDICARE [facility] ACCESS MEDICARE Care Teams Information Developer Relationship Specialty Start Date End Date Unknown, Notinfmadie PCP - General 04/15/18
--- OUTSIDE RECORDS SUMMARY | 2024-04-09 06:53 | XMS_ITS | Referral Summary ---
Author Organization [facility] [employer] Address [address] [place] [address] Care Team Providers Care Firer Marine Name Role Phone Samanta Aguayo MD Primary Care Provider + Source Comments [facility] [employer],non-owned Affiliates and Associated Physician Practices is amultiple site organization consisting of ambulatory clinics and hospital sitesin [place], [place], [place] and [place]. This disclosure is being madepursuant to the Care Everywhere program and may not contain all information available regarding this patient. Last updated 17.[facility] [employer] Allergies No known active allergies Medications * Be aware that medications may not be up to date on this document. Alwaysverify current medications with the patient. Medication Sig Dispensed Refills Start Date End Date Status Calcium 500-125 MG-UNIT Take 2 tablets by mouth once daily Active RESTASIS 0.05 % ophthalmic suspension INSTILL 1 DROP IN EACH EYE TWICE DAILY DIRECTED 08/03/2020 Active doxycycline hyclate (VIBRAMYCIN) 50 MG capsule 12/14/2019 Active metroNIDAZOLE (METROGEL) 1 % gel 10/18/2020 Active lisinopril (Prinivil; Zestril) 10 MG tablet Take 1 (one) tablet by mouth once daily 04/29/2023 Active esomeprazole (NexIUM) 40 MG capsule Take 1 (one) capsule by mouth daily before dinner Active predniSONE (Deltasone) 2.5 MG tablet Take 1 (one) tablet by mouth 06/04/2023 Active Active Problems Problem Noted Date Diagnosed [...] Mass Index 24.28 06/18/2023 1:14 PM CDT Plan of Treatment Upcoming Encounters Date Type Department Care Team (Late st Contact Info) Description 06/09/2024 12:15 PM CDT Office Visit [facility] - Orthopedic Surgery [address] [place] [phone] Kain Caceres MD [address] [place] [address] Care Teams Firer Marine Relationship Specialty Start Date End Date Samanta Aguayo MD [address] [place] [address] PCP - General 05/09/20
--- OUTSIDE RECORDS SUMMARY | 2024-04-09 06:53 | XMS_ITS | Continuity of Care Document ---
Author Organization [facility] Address [address] [place] [address] Phone Care Team Providers Care Bag Press Operator Name Role Phone [facility] Unavailable Unavailable Procedures Procedure Date SO, Figure Of Eight Design Abduction Donato Gonzalez Advance Directives Directive Yes / No Effective Date File Name No Information Encounters Encounter Description Practice Location Reason(s) For Visit Diagnoses Date Provider Providers Copied on Encounter [facility], [address], [place], [address], [place] tel:[phone] [facility] No Information [facility]. [address], [place], [address], [place]. tel:[phone] Referring Provider: Christ Peña, [address] [place] [address], [address] . tel:[phone] Family History Family Member Type Diagnosis Age At Onset No Information Payers Payer name Insurance type Covered democrat ID Authoriza tion(s) [facility] ([facility] [place] [id number] Social History Type Description Quantity Date Captured Comments Sex Female Smoking Status No Information Chief Complaint And Reason For Visit No Information Reason For Referral Reason For Referral No Information History Of Present Illness Encounter Date Complaint History Of Prese nt Illness No Information Functional Status Date Functional Assessmen t No Information Instructions Date Instruction Additional Infor mation No Information Assessments Type Assessment Date No Information Patient Care Teams Name Effective Dates (start - stop) Status Members No Information
--- OUTSIDE RECORDS SUMMARY | 2024-04-09 06:53 | XMS_ITS | Clinical Summary ---
Author Organization [facility] [employer] Address [address] [place] [address] Care Team Providers Care Account Support Rep Name Role Phone Samanta Aguayo MD Primary Care Provider + Source Comments [facility] [employer],non-owned Affiliates and Associated Physician Practices is amultiple site organization consisting of ambulatory clinics and hospital sitesin [place], [place], [place] and [place]. This disclosure is being madepursuant to the Care Everywhere program and may not contain all information available regarding this patient. Last updated 17.[facility] [employer] Allergies No known active allergies Medications * [...] Description 06/09/2024 12:15 PM CDT Office Visit [facility] - Orthopedic Surgery [address] [place] [address] Kain Caceres MD [address] [place] [address] Health Maintenance Due Date Last Done Comments COLOGUARD (AGES 45-75) - COLON CA SCREENING 1955 COLON MONITORING 1955 COLONOSCOPY - COLON CA SCREENING 1953 CT COLONOGRAPHY - COLON CA SCREENING 1955 Colorectal Cancer Screening 1955 FIT - COLON CA SCREENING 1955 FLEX SIG - COLON CA SCREENING 1955 LIPID TESTING 1955 MAMMOGRAM 1955 MEDICARE AWV ? 12 MONTHS 1955 HEPATITIS C SCREENING 08/28/1971 DTAP/TDAP/TD VACCINES (1 - Tdap) 1972 PNEUMOCOCCAL VACCINE 50+ (1 of 1 - PCV) 09/02/2003 ZOSTER VACCINE (1 of 2) 09/02/2003 COVID-19 VACCINE (1 - season) 2023 INFLUENZA VACCINE (#1) 2023 DEPRESSION SCREENING 03/10/2024 Respiratory Syncytial Virus (RSV) Vaccine Pt: or over 60 yrs (1 - 1-dose 75+ series) 2028 BONE DENSITY TESTING Completed 04/16/2022, 10/17/2020, 04/20/2019, Additional history exists HEPATITIS B VACCINE Aged Out No longe r eligible based on patient's age to complete this topic HIB VACCINE Aged Out No longer eligi ble based on patient's age to complete this topic HPV VACCINE Aged Out No longer eligi ble based on patient's age to complete this topic MENINGOCOCCAL (Group B) VACCINE Aged Out No longer eligible based on patient's age to complete this topic MENINGOCOCCAL VACCINE Aged Out No angel chantell eligible based on patient's age to complete this topic Care Teams Account Support Rep Relationship Specialty Start Date End Date Samanta Aguayo MD [address] [place] [address] PCP - General 3//21
--- OUTSIDE RECORDS SUMMARY | 2024-04-09 06:53 | XMS_ITS | Encounter Summary ---
Author Organization [facility] Address [address] [place] [address] Care Team Providers Care Security Orderly Name Role Phone Samanta Aguayo MD Primary Care Provider + Encounter Details Date Type Department Care Team (Late st Contact Info) Description 05/10/2020 Lab Requisition [facility] [address], [facility] [place] [address] Miri Bedolla MD [address] [facility] [address] [place] [address] Social History Tobacco Use Types Packs/Day Years Used Date Smoking Tobacco: Never Assessed Sex and Gender Information Value Date Recorded Sex Assigned at Not on file Gender Identity Not on file Sexual Orientation Not on file documented as of this encounter Plan of Treatment Upcoming Encounters Date Type Department Care Team (Late Contact Info) Description 06/09/2024 12:15 PM CDT Office Visit [facility] - Orthopedic Surgery [address] [place] [id number] Kain Caceres MD [address] [place] [address] documented as of this encounter Procedures Procedure Name Priority Date/Time Associated Diagnosis Comments DERMATOPATHOLOGY Routine 05/09/2020 12:0 0 AM [facility] documented in this encounter Results * DERMATOPATHOLOGY (05/09/2020 12:00 AM [facility]) Case Report Dermatopathology Report ? Case: [id number] ? Authorizing Provider: ??Miri Bedolla MD ?Collected: ? 05/09/2020 12:00 AM ? Ordering Location: ? [facility] ?Received: ?05/10/2020 10:37 AM ? Pathologist: ? Kristel Lopez MD ? Specimen: ?Skin, suprapubic ? 1 4:09 PM [facility] DERMAT[facility] Final Diagnosis Specimen A. 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 The specimen consists of a punch biopsy measuring 8x8x9 mm, bisected. Jar 0. 1 4:09 PM [facility] DERMATOPATHOLOGY [facility] Microscopic Description Specimen A. SKIN, suprapubic: There is a dome-shaped portion of skin with psoriasiform epidermal hyperplasia, compact hyperkeratosis, and fibrosis of the papillary dermis associated with a superficial perivascular lymphohistiocytic infiltrate. 1 4:09 PM [facility] DERMATOPATHOLOGY [facility]OR[facility] Disclaimer An external and internal positive and negative controls are appropriate for the histochemical, immunohistochemical and immunofluorescence stain(s) in this case (if any), except where stated explicitly. The performance characteristics of the stain(s) cited in this report were developed and its performance characteristic determined by the Dermatopathology Laboratory at [facility], directed by Dr. Crow Lopez. These tests need not be, and therefore are not, approved by the [place] Food and Drug Administration. The tests are used for clinical purposes. Billing Codes Specimen Charges Stain Charges 13895 1 1 4:09 PM [facility] DERMATOPATHOLOG[facility]ORY Embedded Images 4:09 PM [facility] DERMATOPATH[facility]ORY Pathology/Cytolog y TISSUE SPECIMEN FROM SKIN / Unknown 05/09/2020 05/10/2020 10:37 AM [facility] Miri Bedolla MD LAB - PATHOLOGY/CYTO LOGY ORDERABLES DERMATOPATHOLOGY LABORATORY [facility] - Department of Dermatology [address], [address] [phone] documented in this encounter Visit Diagnoses Not on filedocumented in this encounter Care Teams Security Orderly Relationship Specialty Start Date End Date Saamnta Aguayo MD [address] [place] [address] PCP - General 05/09/20 documented as of this encounter
--- OUTSIDE RECORDS SUMMARY | 2024-04-09 06:53 | XMS_ITS | Continuity of Care Document ---
Author Organization [facility] Address [address] [place] [address] Phone Care Team Providers Care Material Handling Warehouse Supervisor Name Role Phone Landon Vyas PT Unavailable Unavailable Allergies, Adverse Reactions, Alerts Substance Reaction Status Criticality nickel Active No Information Medications Medication Instructions Dosage Effective Dates (start - stop) Status Comments MULTIVITAMIN (unknown strength) Not Available - Active DOXYCYCLINE HYCLATE (unknown strength) Not Available - Active NEXIUM (unknown strength) take 1 capsule by oral route every day at least 1 hour before a meal swallowing whole. Do not crush or chew granules. Not Available - Active Procedures Procedure Date Physical Tx excercises each 15 min Physical Tx excercises each 15 min Physical Tx excercises each 15 min Physical Tx excercises each 15 min Physical Tx excercises each 15 min Physical Tx excercises each 15 min Physical Tx excercises each 15 min Physical Tx excercises each 15 min Mechanical traction therapy Mechanical traction therapy Mechanical traction therapy Physical therapy evaluation Spine Xray Cervical 4 Or 5 Views 2015 Office/outpatient visit,est, mod 2015 Office/outpatient visit,est, mod 2014 Office/outpatient visit,est, mod 2014 Shoulder Xray Complete Min Of 2 Views Au Office/outpatient visit,est, mod 2014 Inj/Aspirate Mjr Joint/Bursa(Shldr, Hip, Knee, Subacrom Bursa) UN10 Kenalog Chest Xray 2 Views Frontal And Lateral A Office/outpatient visit,est, mod 2013 Office/outpatient visit,est, mod 2012 Office/outpatient visit,est, mod 2012 Drain/Inj Major Joint/Bursa(Shldr, Hip, Knee, Subacrom Bursa) Kenalog Ultrasound; Complete X-ray exam of shoulder, complete 2012 Office/outpatient visit,est, mod 2012 Office/outpatient visit,est, mod 2012 MRI upr extr joint, w/o contrast 2012 Office/outpatient visit,new, [facility] 2012 Office/outpatient visit,est, mod 2012 Physical Tx excercises each 15 min Office/outpatient visit,new, [facility] 2012 Drain/Inj Major Joint/Bursa(Shldr, Hip, Knee, Subacrom Bursa) Kenalog X-ray exam of shoulder, complete 2012 Office/outpatient visit,est, mod 2009 X-ray exam of knee, 3 views Office/outpatient visit,est, [facility] 2008 Drain/inject major jointor bursa 2008 Kenalog Physical Tx excercises each 15 min Ultrasound, each 15 minutes Physical Tx excercises each 15 min Ultrasound, each 15 minutes Physical Tx excercises each 15 min Ultrasound, each 15 minutes Physical Tx excercises each 15 min Ultrasound, each 15 minutes Physical Tx excercises each 15 min Ultrasound, each 15 minutes Physical Tx excercises each 15 min Ultrasound, each 15 minutes Physical Tx excercises each 15 min Ultrasound, each 15 minutes Physical therapy, re-evaluation 008 Physical Tx excercises each 15 min Ultrasound, each 15 minutes Office/outpatient visit,est, mod 2007 Physical Tx excercises each 15 min Physical Tx excercises each 15 min Physical Tx excercises each 15 min Physical Tx excercises each 15 min Physical Tx excercises each 15 min Office/outpatient visit,est, low 2007 Physical Tx excercises each 15 min Physical Tx excercises each 15 min Physical Tx excercises each 15 min Physical Tx excercises each 15 min Physical Tx excercises each 15 min Physical Tx excercises each 15 min Physical Tx excercises each 15 min Physical Tx excercises each 15 min Physical Tx excercises each 15 min Physical Tx excercises each 15 min Physical Tx excercises each 15 min Physical Tx excercises each 15 min Physical Tx excercises each 15 min Physical Tx excercises each 15 min Physical Tx excercises each 15 min Physical Tx excercises each 15 min Physical Tx excercises each 15 min Physical Tx excercises each 15 min Physical Tx excercises each 15 min Physical Tx excercises each 15 min Physical Tx excercises each 15 min Physical Tx excercises each 15 min Physical Tx excercises each 15 min Physical therapy evaluation Physical Tx excercises each 15 min Physical Tx excercises each 15 min Physical Tx excercises each 15 min Physical Tx excercises each 15 min Physical Tx excercises each 15 min Physical Tx excercises each 15 min Repair ruptured rotator cuff, chron Partial removal of shoulder bone 2007 Arthscpy shldr, debridement limited Partial removal of collarbone 8 PA At Surgery PA At Surgery Arthscpy shldr, debridement limited PA At Surgery Drain/inject major jointor bursa 2007 Office/outpatient visit,est, mod 2006 MRI upr extr joint, w/o contrast 2006 Office/outpatient visit,est, mod 2006 X-ray exam of shoulder, complete 2006 Physical Tx excercises each 15 min Physical therapy evaluation Physical Tx excercises each 15 min Office/outpatient visit,est, mod 2006 Office consultation, moderate 7 X-ray exam of shoulder, complete 2006 Advance Directives Directive Yes / No Effective Date File Name No Information Encounters Encounter Description Practice Location Reason(s) For Visit Diagnoses Date Provider Providers Copied on Encounter [facility], [address], [place], [id number], tel:[phone] [facility] 6 Asael Navarrete. [address], [place], [id number], . tel:[phone] Referring Provider: Shawn Humphries, [address] [place], [address] . tel:[phone] [facility], [address] [place] [address], [id number], [place] tel:[phone] [facility] May-2 5-201 6 Asael Pammela. [address], [place], [id number], [place]. tel:[phone] Referring Provider: Shawn Humphries, [address] [place], [address] . tel:[phone] [facility], [address] [place] [address], [id number], [place] tel:[phone] [facility] May-2 2-201 6 Asael Pammela. [address], [place], [id number], [place]. tel:[phone] Referring Provider: Shawn Humphries, [address] [place] [address], [id number] . tel:[phone] [facility], [address] [place] [address], [id number], [place] tel:[phone] [facility] May- 8201 6 Asael Pammela. [address], [id number], [place]. tel:[phone] Referring Provider: Shawn Humphries, [address] [place], [address] . tel:[phone] [facility], [address] [place] [address], [id number], [place] tel:[phone] [facility] May- 4-201 6 Asael Pammela. [address] [place] [address], [id number], [place]. tel:[phone] Referring Provider: Shawn Humphries, [address] [place] [address], [id number] . tel:[phone] [facility], [address] [place] [address], [id number], [place] tel:[phone] [facility] May- 1-201 6 Asael Pammela. [address] [place] [address], [id number], [place]. tel:[phone] Referring Provider: Shawn Humphries, [address] [place], [address] . tel:[phone] [facility], [address] [place] [address], [id number], [place] tel:[phone] [facility] Mar-0 9-201 6 Asael Pammela. [address], [id number], [place]. tel:[phone] Referring Provider: Shawn Humphries, [address] [place], [address] . tel:[phone] [facility], [address] [place] [address], [id number], [place] tel:[phone] [facility] Mar-0 7-201 6 Asael Pammela. [address] [place] [address], [id number], [place]. tel:[phone] Referring Provider: Shawn Humphries, [address] [place], [address] . tel:[phone] [facility], [address] [place] [address], [id number], [place] tel:[phone] [facility]-0 4-201 6 Asael Pammela. [address], [id number], [place]. tel:[phone] Referring Provider: Shawn Humphries, [address] [place] [address], [id number] . tel:[phone] [facility], [address] [place] [address], [id number], [place] tel:[phone] [facility] Mar-0 1-201 6 Asael Pammela. [address] [place] [address], [id number], [place]. tel:[phone] Referring Provider: Shawn Humphries, [address] [place] [address], [id number] . tel:[phone] [facility], [address] [place] [address], [id number], tel:[phone] [facility] 6 Asael Navarrete. [address] [place] [address], [id number], . tel:[phone] Referring Provider: Shawn Humphries, [address] [place] [address], [id number] . tel:[phone] Office/outpa tient visit,est, [facility], [address] [place] [address], [id number], tel:[phone] [facility] cervical spine (chief complaint) Neck painDDD (degenerative disc disease), cervicalRight arm pain 6 Hitesh Yang. [address] [place] [address], [id number], . tel:[phone] Referring Provider: Celia Humphries, [address] [place] [address], [address] . tel:[phone] Office/outpa tient visit,est, [facility], [address] [place] [address], [id number], tel:[phone] [facility] Shoulder (chief complaint) CervicalgiaPai n in right shoulder 5 Roque Amaya. [address] [place] [address], [id number], . tel:[phone] Office/outpa tient visit,est, [facility], [address] [place] [address], [id number], tel:[phone] [facility] shoulder (chief complaint) Neck painRight shoulder pain 5 Rey Woodard. [address] [place] [address], [id number], . tel:[phone] Office/outpa tient visit,est, [facility], [address] [place] [address], [id number], tel:[phone] [facility] shoulder (chief complaint) Tendinitis of right rotator cuff 5 Roque Amaya. [address], [id number], [place]. tel:[phone] Office/outpa tient visit,est, [facility], [address] [place] [address], [id number], [place] tel:[phone] [facility] PA right shoulder pain (chief complaint) Tendonitis/Ten osynovitis Shoulder-CHRON ICPartial Tear Of Rotator Cuff (Chronic) 4 Roque Amaya. [address], [id number], [place]. tel:[phone] Office/outpa tient visit,est, [facility], [address] [place] [address], [id number], [place] tel:[phone] [facility] right shoulder pain (chief complaint) Tendonitis/Ten osynovitis Shoulder-CHRON IC 3 Rey Woodard. [address], [id number], [place]. tel:[phone] Office/outpa tient visit,est, [facility], [address] [place] [address], [id number], [place] tel:[phone] [facility] PA Tendonitis/Ten osynovitis Shoulder-CHRON ICPartial Tear Of Rotator Cuff (Chronic) 3 Roque Amaya. [address], [id number], [place]. tel:[phone] Office/outpa tient visit,est, [facility], [address] [place] [address], [id number], [place] tel:[phone] [facility] Billing ReviewBilling Review 3 Rey Woodard. [address], [id number], [place]. tel:[phone] Referring Provider: Christ Peña, [address] [place], [address] . tel:[phone] Office/outpa tient visit,est, mod [facility], [address] [place] [address], [id number], [place] tel:[phone] [facility] Pain In Shoulder JointRotator Cuff Tear - ACUTE 3 Mariana Polo. [address], [id number], [place]. tel:[phone] [facility], [address] [place] [address], [id number], [place] tel:[phone] [facility] Rotator Cuff Tear - ACUTE 3 Mariana Polo. [address], [place], [id number], [place]. tel:[phone] Referring Provider: Christ Peña, [address] [place], [address] . tel:[phone] Office/outpa tient visit,[facility], [facility], [address] [place] [address], [id number], [place] tel:[phone] [facility] Pain In Shoulder JointRotator Cuff Tear - ACUTE 3 Raghu Hernandez. [address] [place] [address], [id number], [place]. tel:[phone] Office/outpa tient visit,[facility], [facility], [address] [place] [address], [id number], tel:[phone] [facility] Tendonitis/Ten osynovitis Shoulder 3 Raghu Hernandez. [address] [place] [address], [id number], [place]. tel:[phone] Referring Provider: Mary Kuo, [address] [place] [address], [id number] . tel:[phone] [facility], [address] [place] [address], [id number], tel:[phone] [facility] No Information 3 Ro Luciano. [address], [place], [id number], . tel:[phone] Referring Provider: Christ Peña, [address] [place], [address] . tel:[phone] Office/outpa tient visit,[facility], [address] [place] [address], [id number], tel:[phone] PEGGY FISHER No Information 2 0-201 3 Raghu Mary. [address], [place], [id number], [place]. tel:[phone] Office/outpa tient visit,[facility], [facility], [address] [place] [address], [id number], tel:[phone] [facility] No Information Aug-1 1-201 0 Raghu Mary. [address] [place] [address], [id number], . tel:[phone] Referring Provider: Kyle Galvin, [address], [place], [address]. tel:[phone] Office/outpa tient visit,[facility], [address] [place] [address], [id number], tel:[phone] [facility] No Information May-0 4-200 9 Mariana Polo. [address] [place] [address], [id number], . tel:[phone] Referring Provider: Kyle Galvin, [address], [place], [address]. tel:[phone] [facility], [address] [place] [address], [id number], tel:[phone] [facility] No Information Mao-3 0-200 8 Mariana Polo. [address] [place] [address], [id number], . tel:[phone] [facility], [address] [place] [address], [id number], tel:[phone] [facility] No Information Mao-2 5-200 8 Peña Christ. [address] [place] [address], [id number], . tel:[phone] [facility], [address] [place] [address], [id number], tel:[phone] [facility] No Information Mao-1 2-200 8 Peña Christ. [address] [place] [address], [id number], . tel:[phone] [facility], [address] [place] [address], [id number], tel:[phone] [facility] No Information Mao-0 5-200 8 Peña Christ. [address] [place] [address], [id number], . tel:[phone] Office/outpa tient visit,[facility], [facility], [address] [place] [address], [id number], tel:[phone] [facility] No Information May-2 8-200 8 No Information Referring Provider: Kyle Galvin[address], [place], [address]. tel:[phone] [facility], [address] [place] [address], [id number], tel:[phone] [facility] No Information Apr-1 7-200 8 Peña Christ. [address] [place] [address], [id number], . tel:[phone] [facility], [address] [place] [address], [id number], tel:[phone] [facility] No Information Apr-1 0-200 8 Peña Christ. [address] [place] [address], [id number], . tel:[phone] Office/outpa tient visit,est, low [facility], [address] [place] [address], [id number], tel:[phone] [facility] No Information Apr-0 2-200 8 No Information Referring Provider: Kyle Galvin, [address], [place], [address]. tel:[phone] [facility], [address] [place] [address], [id number], tel:[phone] [facility] No Information May-2 7-200 8 Peña Christ. [address] [place] [address], [id number], . tel:[phone] [facility], [address] [place] [address], [id number], tel:[phone] [facility] No Information 0 6200 8 Peña Christ. [address] [place] [address], [id number], . tel:[phone] [facility], [address] [place] [address], [id number], tel:[phone] [facility] No Information 2 9200 8 Peña Christ. [address] [place] [address], [id number], . tel:[phone] [facility], [address] [place] [address], [id number], tel:[phone] [facility] No Information 9200 8 Peña Christ. [address] [place] [address], [id number], . tel:[phone] [facility], [address] [place] [address], [id number], tel:[phone] [facility] No Information 1200 8 Peña Christ. [address] [place] [address], [id number], . tel:[phone] [facility], [address] [place] [address], [id number], tel:[phone] [facility] No Information 9200 8 Peña Christ. [address] [place] [address], [id number], [place]. tel:[phone] Office/outpa tient visit,est, mod [facility], [address] [place] [address], [id number], tel:[phone] [facility] No Information 0 9200 7 Mariana Polo. [address] [place] [address], [id number], . tel:[phone] Referring Provider: Kyle Galvin, [address] [place] [address] [address], [place], [address]. tel:[phone] [facility], [address] [place] [address], [id number], tel:[phone] [facility] No Information 0 2200 7 Mariana Polo. [address] [place] [address], [id number], . tel:[phone] Referring Provider: Christ Peña, [address] [place] [address], [id number] . tel:[phone] Office/outpa tient visit,est, mod [facility], [address] [place] [address], [id number], tel:[phone] [facility] No Information 2 3-200 7 No Information [facility], [address] [place] [address], [id number], tel:[phone] [facility] No Information 4-200 7 Mariana Polo. [address] [place] [address], [id number], [place]. tel:[phone] [facility], [address] [place] [address], [id number], [place] tel:[phone] [facility] No Information 0 200 7 Mariana Polo. [address] [place] [address], [id number], . tel:[phone] Office/outpa tient visit,est, mod [facility], [address] [place] [address], [id number], tel:[phone] [facility] No Information 6 7 Mariana Polo. [address], [place], [id number], . tel:[phone] Office consultation , moderate [facility], [address], [place], [id number], tel:[phone] [facility] No Information 0200 7 No Information Referring Provider: Kyle Galvin, [address] [place] [address] [address], [place], [address]. tel:[phone] Family History Family Member Type Diagnosis Age At Onset Father Problem (finding) malignant neoplasm of l brock Brother Problem (finding) cancer of colon Payers Payer name Insurance type Covered republican ID Authoriza tion(s) BCBS ([facility]) [id number] [facility] Claims [id number] Social History Type Description Quantity Date Captured Comments Sex Female Smoking Status No Information Chief Complaint And Reason For Visit No Information Reason For Referral Reason For Referral No Information Plan Of Treatment Date Type Action Status Referral Ordered: Albert Lala -Physical Medicine and Rehabilitation (related to DDD (degenerative disc disease), cervical) ordered Referral Referred To: Albert Lala [address], [place], [id number] Ordered: Referrals: Physical Medicine and Rehabilitation. Albert Lala. Consult ordered Future Order: Radiology Order Sp ine Xray Cervical 4 Or 5 Views ([id number]), Ordered on: Ordered Future Order: Radiology Order EM G 1 Extremity ([id number]), Ordered on: Ordered Future Order: Radiology Order Ne rve Conduction Studies 13 Or More Studies ([id number]), Ordered on: Ordered Future Order: Radiology Order MR I Cervical Spine WO Contrast ([id number]), Ordered on: Ordered Future Order: Radiology Order Ch est Xray 2 Views Frontal And Lateral ([id number]), Ordered on: Ordered Future Order: Radiology Order Sh oulder Xray Complete Min Of 2 Views ([id number]), Ordered on: Ordered History Of Present Illness Encounter Date Complaint History Of Prese nt Illness cervical spine Ms Turner is a 59 year old female who complains of cervical spine. She presents with pain. She states that the symptoms have been chronic non-traumatic. The symptoms occur constantly. The problem is worse. Currently the patient states that the symptoms are severe. The pain is described as discomforting and aching. The patient indicates that the pain is located in the neck. The symptoms are aggravated by flexion and extension. Margo states that the symptoms are relieved by rest and sitting. Shoulder shoulder shoulder right shoulder pain right shoulder pain Functional Status Date Functional Assessmen t No Information Instructions Date Instruction Additional Infor mation Patient was educated on the diagnosis and treatment plan. Related to Neck pain Patient was educated on the diagnosis and treatment plan. Related to Pain in right shoulder Patient was educated on the diagnosis and treatment plan. Related to Right shoulder pain Patient was educated on the diagnosis and treatment plan. Related to Tendinitis of right rotator cuff Call with any problems or concer ns. Related to Tendonitis/Tenosynovitis Shoulder-CHRONIC Call with any problems or concer ns. Related to Tendonitis/Tenosynovitis Shoulder-CHRONIC Assessments Type Assessment Date No Information Patient Care Teams Name Effective Dates (start - stop) Status Members No Information
--- OUTSIDE RECORDS SUMMARY | 2024-04-09 06:53 | XMS_ITS | Clinical Summary ---
Author Organization [facility] [id number] [facility] Address [address] [place] [address] Care Team Providers Care Wine Specialist Name Role Phone Samanta Aguayo MD Primary Care Provider [phone]- [phone] Allergies No known active allergies Medications cycloSPORINE (Restasis) 0.05 % emulsion 1 Drop 2 times daily. Active doxycycline monohydrate (MONODOX) 50 mg Capsule Take by mouth every 12 hours. Active calcium citrate/vitamin D2 (CALCIUM CITRATE WITH D ORAL) Take by mouth. Active acetaminophen (TYLENOL) 120 mg Suppository Insert 120 mg by rectum every 4 hours as needed. Active acetaminophen (TYLENOL ARTHRITIS ORAL) Take by mouth. Active Calcium-Cholecal ciferol, D3, 500 mg(1,250mg) -125 unit Tablet Take 2 Tablets by mouth daily. Active doxycycline hyclate (VIBRAMYCIN) 50 mg Capsule 12/27/2020 Active Active Problems Problem Noted Date Diagnosed Date Low back pain at multiple sites 10/16/2020 Cervical spondylosis 08/22/2020 Bilateral occipital neuralgia 08/22/2020 Social History Tobacco Use Types Packs/Day Years [...] Sign Reading Time Taken Comments Blood Pressure 140/90 04/19/2021 9:54 AM GARAGE DOOR INSTALLER Pulse 80 04/19/2021 9:54 AM GARAGE DOOR INSTALLER Temperature 37.2 ??C (98.9 ??F) 12/27/2020 1:55 PM CD T Respiratory Rate 20 02/27/2021 7:49 AM GARAGE DOOR INSTALLER Oxygen Saturation 99% 04/19/2021 9:54 AM GARAGE DOOR INSTALLER Inhaled Oxygen Concentration - - Weight 73.9 kg (163 lb) 04/19/2021 9:54 AM GARAGE DOOR INSTALLER Height 170.2 cm (5' 7 ) 04/19/2021 9:54 AM GARAGE DOOR INSTALLER Body Mass Index 25.53 04/19/2021 9:54 AM GARAGE DOOR INSTALLER Plan of Treatment Health Maintenance Due Date Last Done Comments DTAP/TDAP/TD VACCINES (1 - Tdap) 1972 BREAST CANCER SCREENING 1993 COLORECTAL SCREENING 1998 Colorectal Cancer Screening 1998 FIT-DNA Q 3 years 1998 FIT/FOBT Q 1 year 1998 Flex Sig/CT Colonography Q 5 years 1998 PNEUMOCOCCAL VACCINE 65+ YEARS (1 of 1 - PCV) 09/02/19 04 ZOSTER VACCINE (1 of 2) 09/02/2003 INFLUENZA VACCINE (#1) 2023 RSV VACCINE (60+ or ) (1 - 1-dose 75+ series) 2028 OSTEOPOROSIS SCREENING Completed 10/17/2020 Insurance MEDICARE PART A AND B [facility] Care Teams Wine Specialist Relationship Specialty Start Date End Date Samanta Aguayo MD PCP - General Family Practice 08/11/20
--- OUTSIDE RECORDS SUMMARY | 2024-04-09 06:53 | XMS_ITS | Clinical Summary ---
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 Encounters Date Type Department Care Team Description 04/07/2024 Orders Only [facility] [address] [facility] 5[address] [place] [address] [place] [address] Rosalie Man MD Osteopenia of multiple sites (Primary Dx) from Last 3 Months Surgical History Surgery Date Site/Laterality Comments SD TOTAL ABDOMINAL HYSTERECT W/WO RMVL TUBE OVARY Hysterectomy - (Added by TW Conv) Family History Medical History Relation Name Comments Osteoporosis Mother Relation Name Status Comments Mother Social History Tobacco Use Types Packs/Day Years Used Date Smoking Tobacco: Never Smokeless Tobacco: Never Tobacco Cessation:Counseling Given: Not Answered Personal Safety Answer Date Recorded Getting School Help Needed Not on file 04/03 Comments Unknown Sex and Gender Information Value Date Recorded Sex Assigned at Not on file Legal Sex Female 5:06 AM RADIOLOGY ORDERLY Gender Identity Not on file Sexual Orientation Not on file Obstetrics History Last Filed Vital Signs Vital Sign Reading Time Taken Comments Blood Pressure - - Pulse - - Temperature - - Respiratory Rate - - Oxygen Saturation - - Inhaled Oxygen Concentration - - Weight 74.2 kg (163 lb 8 oz) 04/23/2023 11:23 AM RADIOLOGY ORDERLY Height 167 cm (5' 5.75 ) 04/23/2023 11:23 AM RADIOLOGY ORDERLY Body Mass Index 26.59 04/23/2023 11:23 AM RADIOLOGY ORDERLY Plan of Treatment Health Maintenance Due Date Last Done Comments Breast Cancer Screening-Mammogram 1955 Colon Cancer Screening-Colonoscopy 1955 Depression Screening 1955 Fall Risk Assessment 1955 Hepatitis C Screening 1955 DTaP/Tdap/Td Vaccine (1 - Tdap) 1964 Hepatitis B Screening 09/02/1971 Zoster Vaccine (1 of 2) 09/02/2003 Well Visit 65+ 2018 Pneumococcal vaccine 65+ (2 of 2 - PPSV23 or PCV20) 01/21/2020 01/20/2019 Influenza Vaccine (#1) 2023 , 12/13/2017, 12/16/2016, Additional history exists Osteoporosis Screening-Bone Density Scan 04/23/2025 04/23/2023, 04/16/2022, 10/17/2020, Additional history exists Procedures Procedure Name Priority Date/Time Associated Diagnosis Comments DEXA TBS AXIAL SKELETON BONE DENSITY 1 OR MORE SITES Schedule Routine, Read Routine (OP Routine) 04/23/2023 11:18 AM RADIOLOGY ORDERLY Osteopenia of multiple sites from Last 3 Months or Most Recently Relevant to Health Maintenance Results * Dexa TBS Axial Skeleton Bone Density 1 or more sites (04/23/2023 11:18 AM RADIOLOGY ORDERLY) Anatomical Region Laterality Modality Wrist, Body N/A Radiographic Deepa ging Narrative 04/23/2023 12:14 PM RADIOLOGY ORDERLY Patient Name: Suzette Louise Date of : 1955 Date of scan: 04/23/2023 Bone mineral density was performed on a [employer] Discovery Densitometer. ?? Based on machine cross-calibration [...] by the International Society of Clinical Densitometry. [id number] Rosalie Man MD IMG DXA PROCEDURES Final Resu lt from Last 3 Months or Most Recently Relevant to Health Maintenance Insurance [facility] MEDICARE [facility] MEDICARE [employer] [place] FOR LIFE [facility] MEDICARE Care Teams Alpine Guide Relationship Specialty Start Date End Date Unknown, Notinfile PCP - General 04/15/18
[2024-04-09 07:34] LABS: Hematocrit 43.5 % (37.0-47.0); Hemoglobin 14.1 g/dL (12.0-15.0); Mean Corpuscular HGB Conc 32.4 g/dl (32-36); Mean Corpuscular Volume 89.5 fl (80-100); Mean Platelet Volume 10.6 fl (7.4-10.4); Platelet Count Result 290 k/mm3 (150-375); Red Blood Count 4.86 M/mm3 (4.2-5.4); Red Cell Distribution Width 13.8 % (11.5-14.5)
[2024-04-09 07:49] LABS: Alanine Aminotransferase 17 U/L (6-35); Albumin Level 4.1 g/dL (3.5-5.1); Alkaline Phosphatase 84 U/L (38-126); Anion Gap 8 mmol/L (4-12); Aspartate Amino Transferase 20 U/L (14-36); Bilirubin,Total 1.2 mg/dL (0.2-1.3); Blood Urea Nitrogen 17 mg/dL (7-17); Calcium 9.9 mg/dL (8.4-10.2); Carbon Dioxide 28 mmol/L (22-30); Chloride 102 mmol/L (98-107); Cholesterol 205 mg/dL (0-200); Estimated Glomerular Filt Rate > 60; Glucose 94 mg/dL (65-110); HDL Direct 81 mg/dL; Potassium 4.6 mmol/L (3.4-5.0); Sodium 138 mmol/L (137-145); Triglycerides 145 mg/dL (<150)
[2024-04-09 08:00] LABS: LDL Cholesterol Direct 87 mg/dL
== END 2024-04-09 06:50 | disposition home or self-care (01) ==
LOC: ANHLAB 06:52
PROVIDERS: PCP Family Medicine; Visit Provider Physician Assistant
DX: E07.9 Disorder of thyroid, unspecified (principal); I10 Essential (primary) hypertension; Z13.220 Encounter for screening for lipoid disorders; R00.2 Palpitations
CPT/HCPCS: 36415; 80053; 80061; 84439; 84443; 85027

== ENCOUNTER 2024-04-22 15:46 | Outpatient (CLI) | payer MEDICARE, BC, OTHER, SELFPAY ==
--- NOTE | ~2024-04-22 | XR_ITS ---
HISTORY: M25.552 - Pain in left hip COMPARISON: None TECHNIQUE: 2 views of the left hip FINDINGS: No acute fracture or dislocation is identified. Superior lateral sclerosis of the femoral acetabular joint space is present consistent with osteoarth ritis. Joint space narrowing detected within the left SI joint with sclerosis. Mineralization is age-appropriate. IMPRESSION: Degenerative disease without acute fracture or dislocation Reviewed, dictated and finalized at location A. APPLIANCES MECHANIC
--- OUTSIDE RECORDS SUMMARY | 2024-04-22 15:51 | XMS_ITS | Clinical Summary ---
Author Organization [facility] Address [facility] [place] [address] Care Team Providers Care Medicaid Specialist Name Role Phone Unknown, Notinfile Primary Care [...] Department Care Team Description 04/07/2024 Orders Only [facility] [address] [facility] [facility] [address] [place] [address] [place] [address] Rosalie Man MD Osteopenia of multiple sites (Primary Dx) from Last 3 Months Surgical History Surgery Date Site/Laterality Comments ID TOTAL ABDOMINAL HYSTERECT W/WO RMVL TUBE OVARY [...] on file Legal Sex Female 5:06 AM HUMAN RESOURCES TEMP Gender Identity Not on file Sexual Orientation Not on file Obstetrics History Last Filed Vital Signs Vital Sign Reading Time Taken Comments Blood Pressure - - Pulse - - Temperature - - Respiratory Rate - - Oxygen Saturation - - Inhaled Oxygen Concentration - - Weight 74.2 kg (163 lb 8 oz) 04/23/2023 11:23 AM HUMAN RESOURCES TEMP Height 167 cm (5' 5.75 ) 04/23/2023 11:23 AM HUMAN RESOURCES TEMP Body Mass Index 26.59 04/23/2023 11:23 AM HUMAN RESOURCES TEMP Plan of Treatment Health Maintenance Due Date [...] Read Routine (OP Routine) 04/23/2023 11:18 AM HUMAN RESOURCES TEMP Osteopenia of multiple sites from Last 3 Months or Most Recently Relevant to Health Maintenance Results * Dexa TBS Axial Skeleton Bone Density 1 or more sites (04/23/2023 11:18 AM HUMAN RESOURCES TEMP) Anatomical Region Laterality Modality Wrist, Body N/A Radiographic Deepa ging Narrative 04/23/2023 12:14 PM HUMAN RESOURCES TEMP Patient Name: Suzette Louise Date of : 1955 Date of scan: 04/23/2023 Bone mineral density was performed on a [employer] Discovery Densitometer. Based on machine cross-calibration and precision studies [...] Trabecular Bone Score is 1.258 which suggests partially degraded bone microarchitecture compared to the general population. Final decisions regarding diagnostic or therapeutic recommendations should include BMD, TBS, additional clinical risk factors as well the clinical context of the patient. Please see attached TBS results for further [...] by the International Society of Clinical Densitometry. [id number] Rosalie Man MD IMG DXA PROCEDURES Final Resu lt from Last 3 Months or Most Recently Relevant to Health Maintenance Insurance [facility] MEDICARE [facility] MEDICARE BLUE [facility] FOR LIFE [facility] [place] [address] Care Teams Medicaid Specialist Relationship Specialty Start Date End Date Unknown, Notinfile PCP - General 04/15/18
--- OUTSIDE RECORDS SUMMARY | 2024-04-22 15:51 | XMS_ITS | Clinical Summary ---
Author Organization [facility] [id number] [facility] Address [address] [place] [address] Care Team Providers Care Material Requirements Worker Name Role Phone Samanta Aguayo MD Primary Care Provider +1- [phone] Allergies No known active allergies Medications cycloSPORINE [...] Comments Blood Pressure 140/90 04/19/2021 9:54 AM PEER COUNSELOR Pulse 80 04/19/2021 9:54 AM PEER COUNSELOR Temperature 37.2 C (98.9 F) 12/27/2020 1:55 PM CDT Respiratory Rate 20 02/27/2021 7:49 AM PEER COUNSELOR Oxygen Saturation 99% 04/19/2021 9:54 AM PEER COUNSELOR Inhaled Oxygen Concentration - - Weight 73.9 kg (163 lb) 04/19/2021 9:54 AM PEER COUNSELOR Height 170.2 cm (5' 7 ) 04/19/2021 9:54 AM PEER COUNSELOR Body Mass Index 25.53 04/19/2021 9:54 AM PEER COUNSELOR Plan of Treatment Health Maintenance Due Date [...] 10/17/2020 Insurance MEDICARE PART A AND B [facility] [facility] Care Teams Material Requirements Worker Relationship Specialty Start Date End Date Samanta Aguayo MD PCP - General Family Practice 08/11/20
--- OUTSIDE RECORDS SUMMARY | 2024-04-22 15:51 | XMS_ITS | Continuity of Care Document ---
Author Organization [facility] Address [address] [place] [address] Phone Care Team Providers Care Outside Plant Field Engineer Name Role Phone Landon Vyas PT Unavailable [...] extr joint, w/o contrast 2012 [place] [facility] [place] visit,est, mod 2012 Physical Tx excercises each 15 min [place] [facility] [place] Drain/Inj Major Joint/Bursa(Shldr, Hip, Knee, Subacrom Bursa) Kenalog X-ray exam of shoulder, complete 2012 Office/outpatient visit,est, mod 2009 X-ray exam of knee, 3 views Office[place] [facility] [place] Drain/inject major jointor bursa 2008 [...] Diagnoses Date Provider Providers Copied on Encounter [facility], [address], [place], [id number], tel:[phone] [facility] 6 Asael Navarrete. [address], [place], [id number], . tel:[phone] Referring Provider: Shawn Humphries, [address] [place], [address] . tel:[phone] [facility], [address] [place] [address], [id number], [place] tel:[phone] [facility] May-2 5-201 6 Asael Pammela. [address], [place], [id number], [place]. tel:[phone] Referring Provider: Shawn Humphries, [address] [place], [address] . tel:[phone] [facility], [address] [place] [address], [id number], [place] tel:[phone] [facility] May-2 2-201 6 Asael Pammela. [address], [place], [id number], [place]. tel:[phone] Referring Provider: Shawn Humphries, [address] [place] [address], [address] . tel:[phone] [facility], [address] [place] [address], [id number], [place] tel:[phone] [facility] May- 8201 6 Asael Pammela. [address], [place], [id number], [place]. tel:[phone] Referring Provider: Shawn Humphries, [address] [place], [address] . tel:[phone] [facility], [address] [place] [address], [id number], [place] tel:[phone] [facility] May- 4-201 6 Asael Pammela. [address] [place] [address], [id number], [place]. tel:[phone] Referring Provider: hSawn Humphries, [address] [place] [address], [address] . tel:[phone] [facility], [address] [place] [address], [id number], [place] tel:[phone] [facility] May- 1-201 6 Asael Pammela. [address] [place] [address], [id number], [place]. tel:[phone] Referring Provider: Shawn Humphries, [address] [place], [address] . tel:[phone] [facility], [address] [place] [address], [id number], [place] tel:[phone] [facility] Mar-0 9-201 6 Asael Pammela. [address], [place], [id number], [place]. tel:[phone] Referring Provider: Shawn Humphries, [address] [place], [address] . tel:[phone] [facility], [address] [place] [address], [id number], [place] tel:[phone] [facility] Mar-0 7-201 6 Asael Pammela. [address] [place] [address], [id number], [place]. tel:[phone] Referring Provider: Shawn Humphries, [address] [place], [address] . tel:[phone] [facility], [address] [place] [address], [id number], [place] tel:[phone] [facility]-0 4-201 6 Asael Pammela. [address], [place], [id number], [place]. tel:[phone] Referring Provider: Shawn Humphries, [address] [place] [address], [address] . tel:[phone] [facility], [address] [place] [address], [id number], [place] tel:[phone] [facility] Mar-0 1-201 6 Asael Pammela. [address] [place] [address], [id number], [place]. tel:[phone] Referring Provider: Shawn Humphries, [address] [place] [address], [address] . tel:[phone] [facility], [address] [place] [address], [id number], tel:[phone] [facility] Cervicalgia 6 Asael Navarrete. [address] [place] [address], [id number], . tel:[phone] Referring Provider: Shawn Humphries, [address] [place] [address], [address] . tel:[phone] Office/outpa tient visit,est, [facility], [address] [place] [address], [id number], tel:[phone] [facility] cervical spine (chief complaint) Neck painDDD (degenerative disc disease), cervicalRight arm pain 6 Hitesh Yang. [address] [place] [address], [id number], . tel:[phone] Referring Provider: Celia Humphries, [address] [place] [address], [address] . tel:[phone] Office/outpa tient visit,est, [facility], [address] [place] [address], [id number], tel:[phone] [facility] Shoulder (chief complaint) CervicalgiaPai n in right shoulder 5 Roque Amaya. [address] [place] [address], [id number], . tel:[phone] Office/outpa tient visit,est, [facility], [address] [place] [address], [id number], tel:[phone] [facility] shoulder (chief complaint) Neck painRight shoulder pain 5 Rey Woodard. [address] [place] [address], [id number], . tel:[phone] Office/outpa tient visit,est, [facility], [address] [place] [address], [id number], tel:[phone] [facility] shoulder (chief complaint) Tendinitis of right rotator cuff 5 Roque Amaya. [address], [id number], [place]. tel:[phone] Office/outpa tient visit,est, [facility], [address] [place] [address], [id number], [place] tel:[phone] [facility] right shoulder pain (chief complaint) Tendonitis/Ten osynovitis Shoulder-CHRON ICPartial Tear Of Rotator Cuff (Chronic) 4 Roque Amaya. [address], [id number], [place]. tel:[phone] Office/outpa tient visit,est, [facility], [address] [place] [address], [id number], [place] tel:[phone] [facility] right shoulder pain (chief complaint) Tendonitis/Ten osynovitis Shoulder-CHRON IC 3 Rey Woodard. [address], [place], [id number], [place]. tel:[phone] Office/outpa tient visit,est, [facility], [address] [place] [address], [id number], [place] tel:[phone] [facility] Tendonitis/Ten osynovitis Shoulder-CHRON ICPartial Tear Of Rotator Cuff (Chronic) 3 Roque Amaya. [address], [place], [id number], [place]. tel:[phone] Office/outpa tient visit,est, [facility], [address] [place] [address], [id number], [place] tel:[phone] [facility] Billing ReviewBilling Review 3 Rey Woodard. [address], [id number], [place]. tel:[phone] Referring Provider: Christ Peña, [address] [place], [address] . tel:[phone] Office/outpa tient visit,est, mod [facility], [address] [place] [address], [id number], [place] tel:[phone] [facility] Pain In Shoulder JointRotator Cuff Tear - ACUTE 3 Mariana Polo. [address], [place], [id number], [place]. tel:[phone] [facility], [address] [place] [address], [id number], [place] tel:[phone] [facility] Rotator Cuff Tear - ACUTE 3 Mariana Polo. [address], [place], [id number], [place]. tel:[phone] Referring Provider: Christ Peña, [address] [place], [address] . tel:[phone] Office/outpa tient visit,[facility], [facility], [address] [place] [address], [id number], [place] tel:[phone] [facility] Pain In Shoulder JointRotator Cuff Tear - ACUTE 3 Raghu Hernandez. [address] [place] [address], [id number], [place]. tel:[phone] Office/outpa tient visit,[facility], [facility], [address] [place] [address], [id number], tel:[phone] [facility] Tendonitis/Ten osynovitis Shoulder 3 Raghu Hernandez. [address] [place] [address], [id number], [place]. tel:[phone] Referring Provider: Mary Kuo, [address] [place] [address], [address] . tel:[phone] [facility], [address] [place] [address], [id number], tel:[phone] [facility] No Information 3 Ro Luciano. [address], [place], [id number], . tel:[phone] Referring Provider: Christ Peña, [address] [place], [address] . tel:[phone] Office/outpa tient visit,[facility], [facility], [address] [place] [address], [id number], tel:[phone] PEGGY FISHER No Information 2 0-201 3 Raghu Mary. [address], [place], [id number], [place]. tel:[phone] Office/outpa tient visit,[facility], [facility], [address] [place] [address], [id number], tel:[phone] [facility] No Information Aug-1 1-201 0 Raghu Mary. [address] [place] [address], [id number], . tel:[phone] Referring Provider: Kyle Galvin, [address], [place], [address]. tel:[phone] Office/outpa tient visit,[facility], [address] [place] [address], [id number], tel:[phone] [facility] No Information May-0 4-200 9 Mariana Polo. [address] [place] [address], [id number], . tel:[phone] Referring Provider: Kyle Galvin, [address], [place], [address]. tel:[phone] [facility], [address] [place] [address], [id number], tel:[phone] [facility] No Information Mao-3 0-200 8 Mariana Polo. [address] [place] [address], [id number], . tel:[phone] [facility], [address] [place] [address], [id number], tel:[phone] [facility] No Information Mao-2 5-200 8 Peña Christ. [address] [place] [address], [id number], . tel:[phone] [facility], [address] [place] [address], [id number], tel:[phone] [facility] No Information Mao-1 2-200 8 Peña Christ. [address] [place] [address], [id number], . tel:[phone] [facility], [address] [place] [address], [id number], tel:[phone] [facility] No Information Mao-0 5-200 8 Peña Christ. [address] [place] [address], [id number], . tel:[phone] Office/outpa tient visit,[facility], [facility], [address] [place] [address], [id number], tel:[phone] [facility] No Information May-2 8-200 8 No Information Referring Provider: Kyle Galvin[address], [place], [address]. tel:[phone] [facility], [address] [place] [address], [id number], tel:[phone] [facility] No Information Apr-1 7-200 8 Peña Christ. [address] [place] [address], [id number], . tel:[phone] [facility], [address] [place] [address], [id number], tel:[phone] [facility] No Information Apr-1 0-200 8 Peña Christ. [address] [place] [address], [id number], . tel:[phone] Office/outpa tient visit,est, low [facility], [address] [place] [address], [id number], tel:[phone] [facility] No Information Apr-0 2-200 8 No Information Referring Provider: Kyle Galvin, [address], [place], [address]. tel:[phone] [facility], [address] [place] [address], [id number], tel:[phone] [facility] No Information May-2 7-200 8 Peña Christ. [address] [place] [address], [id number], . tel:[phone] [facility], [address] [place] [address], [id number], tel:[phone] [facility] No Information 0 6200 8 Peña Christ. [address] [place] [address], [id number], . tel:[phone] [facility], [address] [place] [address], [id number], tel:[phone] [facility] No Information 2 9200 8 Peña Christ. [address] [place] [address], [id number], . tel:[phone] [facility], [address] [place] [address], [id number], tel:[phone] [facility] No Information 9200 8 Peña Christ. [address] [place] [address], [id number], . tel:[phone] [facility], [address] [place] [address], [id number], tel:[phone] [facility] No Information 1200 8 Peña Christ. [address] [place] [address], [id number], . tel:[phone] [facility], [address] [place] [address], [id number], tel:[phone] [facility] No Information 9200 8 Peña Christ. [address] [place] [address], [id number], [place]. tel:[phone] Office/outpa tient visit,est, mod [facility], [address] [place] [address], [id number], tel:[phone] [facility] No Information 0 9200 7 Mariana Polo. [address] [place] [address], [id number], . tel:[phone] Referring Provider: Kyle Galvin, [address] [place] [address] Dr Mc, [place], [address]. tel:[phone] [facility], [address] [place] [address], [id number], tel:[phone] [facility] No Information 0 2200 7 Mariana Polo. [address] [place] [address], [id number], . tel:[phone] Referring Provider: Christ Peña, [address] [place] [address], [address] . tel:[phone] Office/outpa tient visit,est, mod [facility], [address] [place] [address], [id number], tel:[phone] [facility] No Information 2 3-200 7 No Information [facility], [address] [place] [address], [id number], tel:[phone] [facility] No Information 4-200 7 Mariana Polo. [address] [place] [address], [id number], [place]. tel:[phone] [facility], [address] [place] [address], [id number], [place] tel:[phone] [facility] No Information 0 200 7 Mariana Polo. [address] [place] [address], [id number], . tel:[phone] Office/outpa tient visit,est, mod [facility], [address] [place] [address], [id number], tel:[phone] [facility] No Information 6 7 Mariana Polo. [address], [place], [id number], . tel:[phone] Office consultation , moderate [facility], [address], [place], [id number], tel:[phone] [facility] No Information 0200 7 No Information Referring Provider: Kyle Galvin, [address] [place] [address] Dr Mc, [place], [address]. tel:[phone] Family History Family Member Type Diagnosis Age At Onset Father Problem (finding) malignant neoplasm of l brock Brother Problem (finding) cancer of colon Payers Payer name Insurance type Covered republican ID Authoriza tion(s) BC[employer] ([facility]) [id number] [facility] Claims [id number] Social History Type Description Quantity Date Captured Comments Sex Female Smoking Status No Information Chief Complaint And Reason For Visit No Information Reason For Referral Reason For Referral No Information Plan Of Treatment Date Type Action Status Referral Ordered: Albert Lala -Physical Medicine and Rehabilitation (related to DDD (degenerative disc disease), cervical) ordered Referral Referred To: Albert Lala [address], [place], [id number] Ordered: Referrals: Physical Medicine and Rehabilitation. Albert Lala. Consult ordered Future Order: Radiology Order Sp ine Xray Cervical 4 Or 5 Views ([id number]), Ordered on: Ordered Future Order: Radiology Order EM G 1 Extremity ([id number]), Ordered on: Ordered Future Order: Radiology Order Ne rve Conduction Studies 13 Or More Studies ([id number]), Ordered on: Ordered Future Order: Radiology Order MR I Cervical Spine WO Contrast ([id number]), Ordered on: Ordered Future Order: Radiology Order Ch est Xray 2 Views Frontal And Lateral ([id number]), Ordered on: Ordered Future Order: Radiology Order Sh oulder Xray Complete Min Of 2 Views ([id number]), Ordered on: Ordered History Of Present Illness [...]
--- OUTSIDE RECORDS SUMMARY | 2024-04-22 15:51 | XMS_ITS | Clinical Summary ---
Author Organization [facility] Care Team Providers Care Clean Up Helper Banquet Name Role Phone Unavailable Primary Care Provider Unavailabl e Social History Tobacco Use Types Packs/Day Years Used Date Smoking Tobacco: Never Assessed Comments Unknown Sex and Gender Information Value Date Recorded Sex Assigned at Not on file Legal Sex Female 11:32 AM SPIRAL GEAR GENERATOR Gender Identity Not on file Sexual Orientation [...]
--- OUTSIDE RECORDS SUMMARY | 2024-04-22 15:51 | XMS_ITS | Referral Summary ---
Author Organization [facility] Address [address] [place] [address] Care Team Providers Care Motor Vehicle Lecturer Name Role Phone Samanta Aguayo MD Primary Care Provider + Source Comments [facility],non-owned Affiliates and Associated Physician Practices is amultiple site organization consisting of ambulatory clinics and hospital sitesin [place], [place], [place] and [place]. This disclosure is being madepursuant to the Care Everywhere program and may not contain all information available regarding this patient. Last updated 17.[facility] Allergies No known active allergies Medications * [...] 64 06/18/2023 1:14 PM CDT Temperature 37 C (98.6 F) 06/18/2023 1:14 PM CDT Respiratory Rate 18 [...] Description 06/09/2024 12:15 PM CDT Office Visit [facility] - Orth[facility] Surgery [address] [place] [id number] Kain Caceres MD [address] [place] [address] Care Teams Motor Vehicle Lecturer Relationship Specialty Start Date End Date Samanta Aguayo MD [address] [place], [place] [id number] PCP - General 05/09/20
--- OUTSIDE RECORDS SUMMARY | 2024-04-22 15:51 | XMS_ITS | Clinical Summary ---
Author Organization [facility] [employer] Address [address] [place] [address] Care Team Providers Care Fish Hatchery Specialist Name Role Phone Samanta Aguayo MD Primary Care Provider + Source Comments [facility] [employer],non-owned Affiliates and Associated Physician Practices is amultiple site organization consisting of ambulatory clinics and hospital sitesin [place], [place], [place] and [place]. This disclosure is being madepursuant to the Care Everywhere program and may not contain all information available regarding this patient. Last updated 17.[facility] [employer] Allergies No known active allergies Medications * [...] Description 06/09/2024 12:15 PM CDT Office Visit [facility] - [facility] [address] [place] [address] Kain Caceres MD [address] [place] [address] Health Maintenance Due Date Last Done Comments COLOGUARD (AGES 45-75) - COLON CA SCREENING 1953 COLON MONITORING 1953 COLONOSCOPY - COLON CA SCREENING 1953 CT COLONOGRAPHY - COLON CA SCREENING 1953 Colorectal Cancer Screening 1953 FIT - COLON CA SCREENING 1953 FLEX SIG - COLON CA SCREENING 1953 LIPID TESTING 1953 MAMMOGRAM 1953 MEDICARE AWV 12 MONTHS 1953 HEPATITIS C SCREENING 08/28/1971 [...] age to complete this topic Care Teams Fish Hatchery Specialist Relationship Specialty Start Date End Date Samanta Aguayo MD [address] [place] [address] PCP - General 05/09/20
--- OUTSIDE RECORDS SUMMARY | 2024-04-22 15:51 | XMS_ITS | Patient Health Summary ---
Author Organization [facility] Address [address] [place] [address] Care Team Providers Care Pest Technician Name Role Phone Samanta Aguayo MD Primary Care Provider + Note from [facility],non-owned Affiliates and Associated Physician Practices is amultiple site organization consisting of ambulatory clinics and hospital sitesin [place], [place], [place] and [place]. This disclosure is being madepursuant to the Care Everywhere program and may not contain all informatio navailable regarding this patient. Last updated 17.[facility] Allergies No known active allergies [...] PM Narrative 06/18/2023 1:27 PM CDT PROCEDURE: XR FEMUR RIGHT 2VW DATE/TIME OF [...] IMAGING ORDERABLES * DERMATOPATHOLOGY (05/09/2020 12:00 AM ASSURANCE OFFICER) Case Report Dermatopathology Report Case: [id number] Authorizing Provider: Miri Bedolla MD Collected: 05/09/2020 12:00 AM Ordering Location: [facility] DermPath Lab Received: 05/10/2020 10:37 AM Pathologist: Kristel Lopez MD Specimen: Skin, suprapubic 4:09 PM [facility] DERMATOPATHOLOGY LABORATORY Final Diagnosis Specimen A. 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 The specimen consists of a punch biopsy measuring 8x8x9 mm, bisected. Jar 0. 4:09 PM [facility] DERMATOPATHOLOGY LABORATORY Microscopic Description Specimen A. SKIN, suprapubic: There is a dome-shaped portion of skin with psoriasiform epidermal hyperplasia, compact hyperkeratosis, and fibrosis of the papillary dermis associated with a superficial perivascular lymphohistiocytic infiltrate. 4:09 PM [facility] DERMATOPATHOLOGY LABORATORY Disclaimer An external and internal positive and negative controls are appropriate for the histochemical, immunohistochemical and immunofluorescence stain(s) in this case (if any), except where stated explicitly. The performance characteristics of the stain(s) cited in this report were developed and its performance characteristic determined by the Dermatopathology Laboratory at [facility], directed by Dr. Crow Lopez. These tests need not be, and therefore are not, approved by the [place] Food and Drug Administration. The tests are used for clinical purposes. Billing Codes Specimen Charges Stain Charges 44702 1 1 4:09 PM [facility] DERMATOPATHOLOGY LABORATORY Embedded Images 4:09 PM [facility] DERMATOPATHOLOGY LABORATORY Pathology/Cytolog y TISSUE SPECIMEN FROM SKIN / Unknown 05/09/2020 05/10/2020 10:37 AM [facility] Miri Bedolla MD LAB - PATHOLOGY/CYTO LOGY ORDERABLES DERMATOPATHOLOGY LABORATORY [facility] - Department of Dermatology [address], [address] [phone] Care Teams Pest Technician Relationship Specialty Start Date End Date Samanta Aguayo MD [address] [place] [id number] PCP - General 05/09/20
--- OUTSIDE RECORDS SUMMARY | 2024-04-22 15:51 | XMS_ITS | Referral Summary ---
Author Organization [facility] Address [address] [place] [address] Care Team Providers Care Botany Teacher Name Role Phone Unknown, Notinfile Primary Care Provider Unavail able Encounters Date Type Department Care Team Description 04/07/2024 Orders Only [facility] [address] 5th [place] [address] [place] [address] Rosalie Man MD Osteopenia of [...] on file Legal Sex Female 5:06 AM CRIB ATTENDANT Gender Identity Not on file Sexual Orientation Not on file Last Filed Vital Signs Vital Sign Reading Time Taken Comments Blood Pressure - - Pulse - - Temperature - - Respiratory Rate - - Oxygen Saturation - - Inhaled Oxygen Concentration - - Weight 74.2 kg (163 lb 8 oz) 04/23/2023 11:23 AM CRIB ATTENDANT Height 167 cm (5' 5.75 ) 04/23/2023 11:23 AM CRIB ATTENDANT Body Mass Index 26.59 04/23/2023 11:23 AM CRIB ATTENDANT Plan of Treatment Not on file Procedures Procedure Name Priority Date/Time Associated Diagnosis Comments DEXA TBS AXIAL SKELETON BONE DENSITY 1 OR MORE SITES Schedule Routine, Read Routine (OP Routine) 04/23/2023 11:18 AM CRIB ATTENDANT Osteopenia of multiple sites from Last 3 Months or Most Recently Relevant to Health Maintenance Results * Dexa TBS Axial Skeleton Bone Density 1 or more sites (04/23/2023 11:18 AM CRIB ATTENDANT) Anatomical Region Laterality Modality Wrist, Body N/A Radiographic Deepa ging Narrative 04/23/2023 12:14 PM CRIB ATTENDANT Patient Name: Suztete Louise Date of : 1955 Date of scan: 04/23/2023 Bone mineral density was performed on a [employer] Discovery Densitometer. Based on machine cross-calibration and [...] by the International Society of Clinical Densitometry. [id number] Rosalie Man MD IMG DXA PROCEDURES Final Resu lt from Last 3 Months or Most Recently Relevant to Health Maintenance Insurance [employer] MEDICARE [facility] MEDICARE [facility] Address: [address] [place] [address] [facility] MEDICARE Care Teams Botany Teacher Relationship Specialty Start Date End Date Unknown, Shawn PCP - General 04/15/18
--- OUTSIDE RECORDS SUMMARY | 2024-04-22 15:52 | XMS_ITS | Encounter Summary ---
Author Organization [facility] Address [address] [place] [address] Care Team Providers Care Heavy Coil Winder Name Role Phone Samanta Aguayo MD Primary Care Provider + Encounter Details Date Type Department Care Team (Late st Contact Info) Description 05/10/2020 Lab Requisition [facility] Care DermPath Lab [address] [facility] [facility] [place] [address] Miri Bedolla MD [address] [facility] [address] [place] [address] Social History Tobacco Use Types Packs/Day Years Used Date Smoking Tobacco: Never Assessed Sex and Gender Information Value Date Recorded Sex Assigned at Not on file Gender Identity Not on file Sexual Orientation Not on file documented as of this encounter Plan of Treatment Upcoming Encounters Date Type Department Care Team (Late Contact Info) Description 06/09/2024 12:15 PM CDT Office Visit [facility] - Orthopedic Surgery [address] [place] [phone] Kain Caceres MD [address] [place] [address] documented as of this encounter Procedures Procedure Name Priority Date/Time Associated Diagnosis Comments DERMATOPATHOLOGY Routine 05/09/2020 12:0 0 AM SPACE PLANNER documented in this encounter Results * DERMATOPATHOLOGY (05/09/2020 12:00 AM SPACE PLANNER) Case Report Dermatopathology Report Case: [id number] Authorizing Provider: Miri Bedolla MD Collected: 05/09/2020 12:00 AM Ordering Location: [facility] DermPath Lab Received: 05/10/2020 10:37 AM Pathologist: Kristel Lopez MD Specimen: Skin, suprapubic 4:09 PM [facility] DERMATOPATHOLOGY LABORATORY Final Diagnosis Specimen A. 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 The specimen consists of a punch biopsy measuring 8x8x9 mm, bisected. Jar 0. 4:09 PM [facility] DERMATOPATHOLOGY LABORATORY Microscopic Description Specimen A. SKIN, suprapubic: There is a dome-shaped portion of skin with psoriasiform epidermal hyperplasia, compact hyperkeratosis, and fibrosis of the papillary dermis associated with a superficial perivascular lymphohistiocytic infiltrate. 4:09 PM [facility] DERMATOPATHOLOGY LABORATORY Disclaimer An external and internal positive and negative controls are appropriate for the histochemical, immunohistochemical and immunofluorescence stain(s) in this case (if any), except where stated explicitly. The performance characteristics of the stain(s) cited in this report were developed and its performance characteristic determined by the Dermatopathology Laboratory at [facility], directed by Dr. Crow Lopez. These tests need not be, and therefore are not, approved by the [place] Food and Drug Administration. The tests are used for clinical purposes. Billing Codes Specimen Charges Stain Charges 94671 1 4:09 PM [facility] DERMATOPATHOLOGY LABORATORY Embedded Images 4:09 PM [facility] DERMATOPATHOLOGY LABORATORY Pathology/Cytolog y TISSUE SPECIMEN FROM SKIN / Unknown 05/09/2020 05/10/2020 10:37 AM SPACE PLANNER Miri Bedolla MD LAB - PATHOLOGY/CYTO LOGY ORDERABLES DERMATOPATHOLOGY LABORATORY [facility] - Department of Dermatology [facility] Medicine [address] [place] [address], [address] [phone] documented in this encounter Visit Diagnoses Not on filedocumented in this encounter Care Teams Heavy Coil Winder Relationship Specialty Start Date End Date Samanta Aguayo MD [address] [place] [address] PCP - General 05/09/20 documented as of this encounter
--- OUTSIDE RECORDS SUMMARY | 2024-04-22 15:52 | XMS_ITS | Encounter Summary ---
Author Organization [facility] Address [address] [place] [address] Care Team Providers Care Russian Rubber Name Role Phone Samanta Aguayo MD Primary Care Provider [phone]- [phone] Reason for Visit * Reason Onset Date Comments Follow Up 01/18/2021 pt called back Encounter Details Date Type Department Care Team (Late st Contact Info) Description 01/18/2021 Telephone [facility] Pre Procedure Phase II [address] [place] [address] Daisy Nunez, RN Follow Up [...] Vicky Jacobo RN - 01/18/2021 9:59 AM DEAN OF STUDENTS 01/18/2021 9:59 AM Name: Suzette Turner Patient [...] clinic with any questions or concerns at [phone] HOME Hodgson RN Vending Route Driver - Spine & Pain HOD Procedures Office: [phone] OF STUDENTS documented in this encounter Plan of Treatment Not on file documented as of this encounter Visit Diagnoses Not on filedocumented in this encounter Care Teams Russian Rubber Relationship Specialty Start Date End Date Samanta Aguayo MD PCP - General Family Practice 08/11/20 documented as of this encounter
--- OUTSIDE RECORDS SUMMARY | 2024-04-22 15:52 | XMS_ITS | Continuity of Care Document ---
Author Organization [facility] Address [address] [place] [address] Phone Care Team Providers Care Centura Technical Lead Senior Developer Name Role Phone [facility] Unavailable Unavailable Procedures Procedure Date SO, Figure Of Eight Design Abduction Donato Gonzalez Advance Directives Directive Yes / No Effective Date File Name No Information Encounters Encounter Description Practice Location Reason(s) For Visit Diagnoses Date Provider Providers Copied on Encounter [facility], [address], [place], [address], [place] tel:[phone] SIOC No Information [facility]. [address], [place], [address], [place]. tel:[phone] Referring Provider: Christ Peña, [address] [place] [address], [address] . tel:[phone] Family History Family Member Type Diagnosis Age At Onset No Information Payers Payer name Insurance type Covered libertarian ID Authoriza tion(s) [facility] ([facility] [id number] Social History Type Description Quantity Date Captured [...]
== END 2024-04-22 15:47 | disposition home or self-care (01) ==
PROVIDERS: PCP Family Medicine; Visit Provider Physician Assistant
DX: M16.12 Unilateral primary osteoarthritis, left hip (principal)
CPT/HCPCS: 73502

== ENCOUNTER 2024-05-13 13:23 | Outpatient (CLI) | payer MEDICARE, BC, OTHER, SELFPAY ==
[2024-05-13 14:12] LABS: Anion Gap 9 mmol/L (4-12); Blood Urea Nitrogen 21 mg/dL (7-17); Calcium 9.5 mg/dL (8.4-10.2); Carbon Dioxide 28 mmol/L (22-30); Chloride 103 mmol/L (98-107); Estimated Glomerular Filt Rate > 60; Glucose 95 mg/dL (65-110); Potassium 4.1 mmol/L (3.4-5.0); Sodium 140 mmol/L (137-145)
[2024-05-13 14:27] LABS: Vitamin D 25 Hydroxy 40.5 ng/mL
--- OUTSIDE RECORDS SUMMARY | 2024-05-13 14:49 | XMS_ITS | Clinical Summary ---
Author Organization [facility] Care Team Providers Care Dust Mop Maker Name Role Phone Unavailable Primary Care Provider Unavailabl e Social History Tobacco Use Types Packs/Day Years Used Date Smoking Tobacco: Never Assessed Comments Unknown Sex and Gender Information Value Date Recorded Sex Assigned at Not on file Legal Sex Female 11:32 AM ASBESTOS SIDING MECHANIC Gender Identity Not on file Sexual Orientation [...]
--- OUTSIDE RECORDS SUMMARY | 2024-05-13 14:49 | XMS_ITS | Clinical Summary ---
Author Organization [facility] Address [address] [facility] [place] [address] Care Team Providers Care Readiness Paraprofessional Name Role Phone Jacob Hunt MD Primary Care Provider Allergies Active Allergy Reactions Criticality Noted Date [...] total) by mouth every morning 03/27/2023 Active amLODIPine (NORVASC) 2.5 mg tablet Take 1 tablet (2.5 mg total) by mouth daily 04/27/2024 Active cholecalciferol, vitamin D3, (VITAMIN D3 ORAL) Take by mouth Active Active Problems Problem Noted Date Diagnosed Date Age-related osteoporosis wit hout current pathological fracture 05/12/2024 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 Encounters Date Type Department Care Team Description 05/12/2024 10:00 AM SQL APPLICATION DEVELOPER Office Visit [address] [place] [address] Rosalie Man MD Age-related osteoporosis without current pathological fracture (Primary Dx) 05/12/2024 9:30 AM SQL APPLICATION DEVELOPER Clinical Support [address] [place] [address] Age-related osteoporosis without current pathological fracture (Primary Dx); Osteopenia of multiple sites 05/12/[address] [place] [address] Rosalie Man MD Treatment Plan Update (Continue reclast) 04/07/2024 Orders Only [place] [id number] [facility] 5th [place] [address] [place] [address] Rosalie Man MD Osteopenia of multiple sites (Primary Dx) from Last 3 Months Surgical History Surgery Date Site/Laterality Comments RI TOTAL ABDOMINAL HYSTERECT W/WO RMVL TUBE OVARY Hysterectomy - (Added by TW Conv) Family History Medical History Relation Name Comments Osteoporosis Mother Broken bones Neg Hx Hip fracture Neg Hx Kyphosis Neg Hx Scoliosis Neg Hx Relation Name Status Comments Mother Social History Tobacco Use Types Packs/Day Years Used Date Smoking Tobacco: Never Smokeless Tobacco: Never Tobacco Cessation:Counseling Given: Not Answered Comments Unknown Sex and Gender Information Value Date Recorded Sex Assigned at Not on file Legal Sex Female 5:06 AM SQL APPLICATION DEVELOPER Gender Identity Not on file Sexual Orientation Not on file Obstetrics History Last Filed Vital Signs Vital Sign Reading Time Taken Comments Blood Pressure - - Pulse - - Temperature - - Respiratory Rate - - Oxygen Saturation - - Inhaled Oxygen Concentration - - Weight 67.6 kg (149 lb 1.6 oz) 05/12/2024 9:40 A M SQL APPLICATION DEVELOPER Height 167.6 cm (5' 6 ) 05/12/2024 9:40 AM SQL APPLICATION DEVELOPER Body Mass Index 24.07 05/12/2024 9:40 AM SQL APPLICATION DEVELOPER Plan of Treatment Health Maintenance Due Date Last Done Comments Breast Cancer Screening-Mammogram 1955 Colon Cancer Screening-Colonoscopy 1955 Depression Screening 1955 Fall Risk Assessment 1955 Hepatitis C Screening 1955 DTaP/Tdap/Td Vaccine (1 - Tdap) 1964 Hepatitis B Screening 09/02/1971 Zoster Vaccine (1 of 2) 09/02/2003 Well Visit 65+ 2018 Pneumococcal vaccine 65+ (2 of 2 - PPSV23) 01/21/2020 01/20/2019 Influenza Vaccine (#1) 2023 9, 12/13/2017, 12/16/2016, Additional history exists Osteoporosis Screening-Bone Density Scan 05/12/2026 05/12/2024, 04/23/2023, 04/16/2022, Additional history exists Procedures Procedure Name Priority Date/Time Associated Diagnosis Comments DEXA TBS AXIAL SKELETON BONE DENSITY 1 OR MORE SITES Schedule Routine, Read Routine (OP Routine) 05/12/2024 9:40 AM SQL APPLICATION DEVELOPER Osteopenia of multiple sites from Last 3 Months Results * Dexa TBS Axial Skeleton Bone Density 1 or more sites (05/12/2024 9:40 AM SQL APPLICATION DEVELOPER) Anatomical Region Laterality Modality Wrist, Body N/A Radiographic Deepa ging Narrative 05/12/2024 12:38 PM SQL APPLICATION DEVELOPER Patient Name: Suzette Louise Date of : 1955 Date of scan: 05/12/2024 Bone mineral density was performed on a [employer] Discovery Densitometer. Based on machine cross-calibration and precision studies the least significant changes of this densitometer is 0.024 g/cm2 at the spine, 0.020 g/cm2 at the total proximal femur, and 0.014g/cm2 at the forearm. HISTORY: This is a 68 y.o. postmenopausal female with a history of low bone mass, rheumatoid arthritis, and vitamin D deficiency. She reports that she has never smoked. She has never used smokeless tobacco. Currently on treatment with calcium and vitamin D, previously treated with alendronate (Fosamax), ibandronate (Boniva), zoledronic acid (Reclast), teriparatide (Forteo), glucocorticoids, and hormone replacement therapy, and current complaint of neck pain. INDICATIONS: Menopause status, history of glucocorticoids use, vitamin D deficiency, and history of low bone mass. FINDINGS: BONE MINERAL DENSITY OF THE LUMBAR SPINE Bone Mineral Density (BMD) of the lumbar spine was measured from L1-L4 and the average density was calculated to be 0.944 gm/cm2. This corresponds to a T-score (standard deviations from the mean of young adults) of -0.9. When compared to the previous study of 04/23/2023 there has been no significant changes in bone density. BONE MINERAL DENSITY OF THE PROXIMAL FEMUR Bone Mineral Density (BMD) of the left hip total was found to be 0.721 gm/cm2. This corresponds to a T-score standard deviations from the mean of young adults of -1.8. Femoral neck is 0.617 gm/cm2 with a T-score (standard deviations from the mean of young adults) of -2.1. When compared to the previous study of 04/23/2023 there has been a -0.028 gm/cm (-3.7%) decrease in bone density that is considered significant. BONE MINERAL DENSITY OF THE FOREARM Bone Mineral density (BMD) of the left proximal 1/3 of the radius measures 0.618 gm/cm2. This corresponds to a T-score (standard deviations from the mean of young adults) of -1.3. When compared to the previous study of 04/23/2023 there has been no significant changes in bone density. A forearm bone density study was performed in addition to the routine study due to the need to provide a comparison to the previous exam. SUMMARY: Bone mineral density shows evidence of low bone mass at the proximal femur and forearm and moderately increased fracture risk (Osteopenia). There has been a significant decrease in bone density since previous measurement. The lumbar spine Trabecular Bone Score is 1.242 which suggests partially degraded bone microarchitecture compared [...] bone mineral density scan were prepared by Sailaja Verde) DARIO who is accredited by the International Society of Clinical Densitometry. The overall patient assessment and scan interpretation were performed by Rosalie Man M.D. who is certified by the International Society of Clinical Densitometry. [id number] Rosalie Man MD IMG DXA PROCEDURES Final Resu lt from Last 3 Months Insurance [employer] MEDICARE [facility] MEDICARE [facility] MEDICARE Care Teams Readiness Paraprofessional Relationship Specialty Start Date End Date Jacob Hunt MD [address] [place] [address] PCP - General Family Medicine 05/12/24
--- OUTSIDE RECORDS SUMMARY | 2024-05-13 14:50 | XMS_ITS | Encounter Summary ---
Author Organization [facility] Address [address] [place] [address] Phone Care Team Providers Care Latex Spooler Name Role Phone Jacob Hunt MD Primary Care Provider Reason for Visit * Reason Comments Osteopenia * Diagnostic Imaging (Routine) - Authorized Specialty Diagnoses / Procedures Referred By Contac t Referred To Contact Diagnoses Osteopenia of multiple sites Procedures Dexa TBS Axial Skeleton Bone Density 1 or more sites Rosalie Man MD [address] [place] [address] [address] [place] [address] Phone: tel: fax: [facility] (All Locations) Referral ID Status Reason Start Date Expiration Date V isits Requested Visits Authorized [id number] Authorized 04/07/2024 05/07/2025 12 12 Encounter Details Date Type Department Care Team (Latest Contact Info) Description 05/12/2024 9:30 AM BIOMEDICAL SERVICE ENGINEER Clinical Support [facility] [address] [place] [address] Medical Office [address] [place] [address] Age-related osteoporosis without current pathological fracture (Primary Dx); Osteopenia of multiple sites Social History Tobacco Use Types Packs/Day Years Used Date Smoking Tobacco: Never Smokeless Tobacco: Never Comments Unknown Sex and Gender Information Value Date Recorded Sex Assigned at Not on file Legal Sex Female 5:06 AM BIOMEDICAL SERVICE ENGINEER Gender Identity Not on file Sexual Orientation Not on file documented as of this encounter Plan of Treatment Not on file documented as of this encounter Procedures Procedure Name Priority Date/Time Associated Diagnosis Comments DEXA TBS AXIAL SKELETON BONE DENSITY 1 OR MORE SITES Schedule Routine, Read Routine (OP Routine) 05/12/2024 9:40 AM BIOMEDICAL SERVICE ENGINEER Osteopenia of multiple sites documented in this encounter Results * Dexa TBS Axial Skeleton Bone Density 1 or more sites (05/12/2024 9:40 AM BIOMEDICAL SERVICE ENGINEER) Anatomical Region Laterality Modality Wrist, Body N/A Radiographic Deepa ging Narrative 05/12/2024 12:38 PM BIOMEDICAL SERVICE ENGINEER Patient Name: Suzette Turner Date of : 1955 Date of scan: 05/12/2024 Bone mineral density was performed on a [employer] Discovery Densitometer. Based on machine cross-calibration [...] mineral density scan were prepared by Sailaja Sanchez(Amanda) DARIO who is accredited by the International Society of Clinical Densitometry. The overall patient assessment and scan interpretation were performed by Rsoalie Man M.D. who is certified by the International Society of Clinical Densitometry. [id number] Rosalie Man MD IMG DXA PROCEDURES Final Resu lt documented in this encounter Visit Diagnoses Diagnosis Age-related osteoporosis without current pathological fracture- Primary Osteopenia of multiple sites documented in this encounter Care Teams Latex Spooler Relationship Specialty Start Date End Date Jacob Hunt MD [address] [facility] [address] [place] [address] PCP - General Family Medicine 05/12/24 documented as of this encounter
--- OUTSIDE RECORDS SUMMARY | 2024-05-13 14:50 | XMS_ITS | Encounter Summary ---
Author Organization [facility] Address [address] [place] [address] Care Team Providers Care Acid Changer Name Role Phone Samanta Aguayo MD Primary Care Provider [phone] Reason for Visit * Reason Onset Date Comments Follow Up 01/18/2021 pt called back Encounter Details Date Type Department Care Team (Late st Contact Info) Description 01/18/2021 Telephone [facility] Pre [facility] Phase II [address] [place] [address] Daisy Nunez, RN Follow Up [...] Vicky Jacobo RN - 01/18/2021 9:59 AM LOTUS NOTES ADMINISTRATOR 01/18/2021 9:59 AM Name: Suzette Turner Patient [...] clinic with any questions or concerns at [phone] HOME Hodgson RN Outside Repairer Special - Spine & Pain HOD Procedures Office: [phone] S NOTES ADMINISTRATOR documented in this encounter Plan of Treatment Not on file documented as of this encounter Visit Diagnoses Not on filedocumented in this encounter Care Teams Acid Changer Relationship Specialty Start Date End Date Samanta Aguayo MD PCP - General Family Practice 08/11/20 documented as of this encounter
--- OUTSIDE RECORDS SUMMARY | 2024-05-13 14:50 | XMS_ITS | Referral Summary ---
Author Organization [facility] Address [address] [place] [address] Care Team Providers Care Sales Negotiator Name Role Phone Jacob Hunt MD Primary Care Provider Encounters Date Type Department Care Team Description 05/12/[address] Medical Office Building [address] [place] [address] Rosalie Man MD Treatment Plan Update (Continue reclast) 05/12/2024 9:30 AM RADIO COMMUNICATIONS MECHANICIAN Clinical Support [address] Office Building [address] [place] [address] Age-related osteoporosis without current pathological fracture (Primary Dx); Osteopenia of multiple sites 05/12/2024 10:00 AM RADIO COMMUNICATIONS MECHANICIAN Office Visit [address] Office Building [address] [place] [address] Rosalie Man MD Age-related osteoporosis without current pathological fracture (Primary Dx) 04/07/[address] [facility] [address] [facility] 5th [place] [address] [place] [address] Rosalie Man MD Osteopenia of multiple sites [...] on file Legal Sex Female 5:06 AM RADIO COMMUNICATIONS MECHANICIAN Gender Identity Not on file Sexual Orientation Not on file Last Filed Vital Signs Vital Sign Reading Time Taken Comments Blood Pressure - - Pulse - - Temperature - - Respiratory Rate - - Oxygen Saturation - - Inhaled Oxygen Concentration - - Weight 67.6 kg (149 lb 1.6 oz) 05/12/2024 9:40 A M RADIO COMMUNICATIONS MECHANICIAN Height 167.6 cm (5' 6 ) 05/12/2024 9:40 AM RADIO COMMUNICATIONS MECHANICIAN Body Mass Index 24.07 05/12/2024 9:40 AM RADIO COMMUNICATIONS MECHANICIAN Plan of Treatment Not on file Procedures Procedure Name Priority Date/Time Associated Diagnosis Comments DEXA TBS AXIAL SKELETON BONE DENSITY 1 OR MORE SITES Schedule Routine, Read Routine (OP Routine) 05/12/2024 9:40 AM RADIO COMMUNICATIONS MECHANICIAN Osteopenia of multiple sites from Last 3 Months Results * Dexa TBS Axial Skeleton Bone Density 1 or more sites (05/12/2024 9:40 AM RADIO COMMUNICATIONS MECHANICIAN) Anatomical Region Laterality Modality Wrist, Body N/A Radiographic Deepa ging Narrative 05/12/2024 12:38 PM RADIO COMMUNICATIONS MECHANICIAN Patient Name: Suzette Louise Date of : 1955 Date of scan: 05/12/2024 Bone mineral density was performed on a [employer] Densitometer. Based on machine cross-calibration and [...] by the International Society of Clinical Densitometry. [id number] us Rosalie Man MD IMG DXA PROCEDURES Final Resu lt from Last 3 Months Insurance FOR LIFE MEDICARE [facility] FEDERAL MEDICARE [place] [email or web address] [place] FOR LIFE [facility] ACCESS MEDICARE Care Teams Sales Negotiator Relationship Specialty Start Date End Date Jacob Hunt MD [address] [facility] [address] [place], [place] [id number] PCP - General Family Medicine 05/12/24
--- OUTSIDE RECORDS SUMMARY | 2024-05-13 14:50 | XMS_ITS | Clinical Summary ---
Author Organization [employer] [address] [facility] Address [address] [place] [address] Care Team Providers Care General Claims Agent Name Role Phone Samanta Aguayo MD Primary Care Provider +1- [phone] Allergies No known active allergies Medications cycloSPORINE [...] Comments Blood Pressure 140/90 04/19/2021 9:54 AM HOLE PUNCHER STRAP Pulse 80 04/19/2021 9:54 AM HOLE PUNCHER STRAP Temperature 37.2 C (98.9 F) 12/27/2020 1:55 PM CDT Respiratory Rate 20 02/27/2021 7:49 AM HOLE PUNCHER STRAP Oxygen Saturation 99% 04/19/2021 9:54 AM HOLE PUNCHER STRAP Inhaled Oxygen Concentration - - Weight 73.9 kg (163 lb) 04/19/2021 9:54 AM HOLE PUNCHER STRAP Height 170.2 cm (5' 7 ) 04/19/2021 9:54 AM HOLE PUNCHER STRAP Body Mass Index 25.53 04/19/2021 9:54 AM HOLE PUNCHER STRAP Plan of Treatment Health Maintenance Due Date Last Done Comments DTAP/TDAP/TD VACCINES (1 - Tdap) 1972 BREAST CANCER SCREENING 1993 COLORECTAL SCREENING 1998 Colorectal Cancer Screening 1998 FIT-DNA Q 3 years 1998 FIT/FOBT Q 1 year 1998 Flex Sig/CT Colonography Q 5 years 1998 PNEUMOCOCCAL VACCINE 50+ YEARS (1 of 1 - PCV) 09/02/19 04 ZOSTER VACCINE (1 of 2) 09/02/2003 INFLUENZA VACCINE (#1) 2023 RSV VACCINE (60+ or ) (1 - 1-dose 75+ series) 2028 OSTEOPOROSIS SCREENING Completed 10/17/2020 Insurance MEDICARE PART A AND B [facility] [place] FOR LIFE Care Teams General Claims Agent Relationship Specialty Start Date End Date Samanta Aguayo MD PCP - General Family Practice 08/11/20
--- OUTSIDE RECORDS SUMMARY | 2024-05-13 14:50 | XMS_ITS | Continuity of Care Document ---
Author Organization [facility] Address [address] [place] [address] Phone Care Team Providers Care Fiber Machine Tender Name Role Phone [facility] Unavailable Unavailable Procedures Procedure Date SO, Figure Of Eight Design Abduction Donato Gonzalez Advance Directives Directive Yes / No Effective Date File Name No Information Encounters Encounter Description Practice Location Reason(s) For Visit Diagnoses Date Provider Providers Copied on Encounter [facility], [address], [place], [address], [place] tel:[phone] [facility] No Information [facility]. [address], [place], [address], [place]. tel:[phone] Referring Provider: Christ Peña, [address] [place] [address], [address] . tel:[phone] Family History Family Member Type Diagnosis Age At Onset No Information Payers Payer name Insurance type Covered green party ID Authoriza tion(s) [facility] [id number] Social History Type Description Quantity Date Captured [...]
--- OUTSIDE RECORDS SUMMARY | 2024-05-13 14:50 | XMS_ITS | Encounter Summary ---
Author Organization [facility] Address [address] [place] [address] Phone Care Team Providers Care Home Support Worker Name Role Phone Jacob Hunt MD Primary Care Provider Reason for Visit * Reason Onset Date Comments Treatment Plan Update 05/12/2024 Continue r eclast Encounter Details Date Type Department Care Team (Late st Contact Info) Description 05/12/2024 Telephone [facility] Office [address] [place] [address] Rosalie Man MD [address] [place] [id number] Treatment Plan Update (Continue reclast) Social History Tobacco Use Types Packs/Day Years Used Date Smoking Tobacco: Never Smokeless Tobacco: Never Comments Unknown Sex and Gender Information Value Date Recorded Sex Assigned at Not on file Legal Sex Female 5:06 AM ACID STRENGTH INSPECTOR Gender Identity Not on file Sexual Orientation Not on file documented as of this encounter Miscellaneous Notes * Telephone Encounter - Donya Killian CMA - 05/12/2024 10:28 AM ACID STRENGTH INSPECTOR Continue reclast. Per Dr. Man To be done at [facility]. Labs to be compelted. Therapy plan in chart. Please send apt request when labs and insurance are back STRENGTH INSPECTOR * Telephone Encounter - Donya Killian CMA - 05/12/2024 10:27 AM ACID STRENGTH INSPECTOR Patient was seen by Dr. Man today for an office visit. The following was recommended for the patient Reclast. Additional Comments: Continue reclast at [facility]. Labs. One year. STRENGTH INSPECTOR documented in this encounter Plan of Treatment Not on file documented as of this encounter Visit Diagnoses Not on filedocumented in this encounter Care Teams Home Support Worker Relationship Specialty Start Date End Date Jacob Hunt MD [address] [facility] [address] [place] [address] PCP - General Family Medicine 05/12/24 documented as of this encounter
--- OUTSIDE RECORDS SUMMARY | 2024-05-13 14:50 | XMS_ITS | Patient Health Summary ---
Author Organization [facility] Address [address] [place] [address] Care Team Providers Care Slubber Operator Name Role Phone Samanta Aguayo MD Primary Care Provider + Note from [facility],non-owned Affiliates and Associated Physician Practices is amultiple site organization consisting of ambulatory clinics and hospital sitesin [place], [place], [place] and [place]. This disclosure is being madepursuant to the Care Everywhere program and may not contain all informatio navailable regarding this patient. Last updated 17.[facility] Allergies No known active allergies Medications [...] IMAGING ORDERABLES * DERMATOPATHOLOGY (05/09/2020 12:00 AM SUPERVISOR FEED MILL) Case Report Dermatopathology Report Case: [id number] Authorizing Provider: Miri Bedolla MD Collected: 05/09/2020 12:00 AM Ordering Location: [facility] DermPath Lab Received: 05/10/2020 10:37 AM Pathologist: Kristel Lopez MD Specimen: Skin, suprapubic 4:09 PM [facility] DERMATOPATHOLOGY LABORATORY Final Diagnosis Specimen A. 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 The specimen consists of a punch biopsy measuring 8x8x9 mm, bisected. Jar 0. 4:09 PM [facility] DERMATOPATHOLOGY LABORATORY Microscopic Description Specimen A. SKIN, suprapubic: There is a dome-shaped portion of skin with psoriasiform epidermal hyperplasia, compact hyperkeratosis, and fibrosis of the papillary dermis associated with a superficial perivascular lymphohistiocytic infiltrate. 4:09 PM [facility] DERMATOPATHOLOGY LABORATORY Disclaimer An external and internal positive and negative controls are appropriate for the histochemical, immunohistochemical and immunofluorescence stain(s) in this case (if any), except where stated explicitly. The performance characteristics of the stain(s) cited in this report were developed and its performance characteristic determined by the Dermatopathology Laboratory at [facility], directed by Dr. Crow Lopez. These tests need not be, and therefore are not, approved by the [place] Food and Drug Administration. The tests are used for clinical purposes. Billing Codes Specimen Charges Stain Charges 11253 1 1 4:09 PM [facility] DERMATOPATHOLOGY LABORATORY Embedded Images 4:09 PM [facility] DERMATOPATHOLOGY LABORATORY Pathology/Cytolog y TISSUE SPECIMEN FROM SKIN / Unknown 05/09/2020 05/10/2020 10:37 AM [facility] Miri Bedolla MD LAB - PATHOLOGY/CYTO LOGY ORDERABLES DERMATOPATHOLOGY LABORATORY [facility] - Department of Dermatology [address], 3rd Floor [address] [phone] Care Teams Slubber Operator Relationship Specialty Start Date End Date Samanta Aguayo MD [address] [place] [id number] PCP - General 05/09/20
--- OUTSIDE RECORDS SUMMARY | 2024-05-13 14:50 | XMS_ITS | Encounter Summary ---
Author Organization [facility] Address [address] [place] [address] Phone Care Team Providers Care Labor Relations Specialist Name Role Phone Jacob Hunt MD Primary Care Provider Reason for Visit * Reason Comments Osteopenia Encounter Details Date Type Department Care Team (Late st Contact Info) Description 05/12/2024 10:00 AM PIPELINER Office Visit [facility] [address] [facility] Medical Office Building [address] [place] [address] Rosalie Man MD [address] [place] [address] [address] [place] [address] Age-related osteoporosis without current pathological fracture (Primary Dx) Social History Tobacco Use Types Packs/Day Years Used Date Smoking Tobacco: Never Smokeless Tobacco: Never Comments Unknown Sex and Gender Information Value Date Recorded Sex Assigned at Not on file Legal Sex Female 5:06 AM PIPELINER Gender Identity Not on file Sexual Orientation Not on file documented as of this encounter Last Filed Vital Signs Vital Sign Reading Time Taken Comments Blood Pressure - - Pulse - - Temperature - - Respiratory Rate - - Oxygen Saturation - - Inhaled Oxygen Concentration - - Weight 67.6 kg (149 lb 1.6 oz) 05/12/2024 9:40 A M PIPELINER Height 167.6 cm (5' 6 ) 05/12/2024 9:40 AM PIPELINER Body Mass Index 24.07 05/12/2024 9:40 AM PIPELINER documented in this encounter Progress Notes * Rosalie Man MD - 05/12/2024 10:00 AM CST Division of Bone and Mineral Disease Bone Health Program 05/12/2024 Suzette Turner is a 68 y.o. female with osteopenia now on chronic corticosteroid therapy, returns for follow-up visit. She was diagnosed with giant cell arthritis around 2022. She was started on prednisone 20 mg (she was not able to tolerate higher dosage) and has been on continuous corticosteroidtherapy since then. Currently she is on prednisone 5 mg daily and will stay on it indefinitely at this point of time. She has not been able to tolerate alternative treatment for giant cell arthritis.She follows with Dr. Burgess hot man close to home. She denies any fall or fracture since the last visit. She has chronic knee osteoarthritis. She stays physically active, does walking CD 45-60 minutes 3 to 4 times a week. (age CD is equivalent to about 4 miles of walking). She supplements her diet with calcium 600 mg that contains vitamin-D twice a day. She also has 2-3 servings of milk a day. Prior treatment history: She was diagnosed with low bone mass in her 30s and has been on multiple medications since then: Boniva for 2 years. Off of any medication for few years Forteo for a year. Off for several years. Reclast several years ago. Fosamax 4.5 years, discontinued March of 2018. VITALS: Vitals: 05/12/24 0940 Weight: 67.6 kg (149 lb 1.6 oz) Height: 167.6 cm (5' 6 ) PHYSICAL EXAM: GENERAL: Well-developed 68 y.o. female in good health and no acute distress. Gait steady unaided BONE MINERAL DENSITY: BONE MINERAL DENSITY OF THE LUMBAR SPINE [...] been a significant decrease in bone density sinceprevious measurement. The lumbar spine Trabecular Bone Score is 1.242 which suggests partially degraded bone microarchitecture compared to the general population. Final decisions regarding diagnostic or therapeutic recommendations should include BMD, TBS, additional clinical risk factors as well the clinical context of the patient. Please see attached TBS results for further details. RESULTS: Lab Results Component Value Date GLUCOSE 67 (L) 04/14/2018 CALCIUM 10.0 04/14/2018 SODIUM 142 04/14/2018 POTASSIUM 4.1 04/14/2018 CO2 29 04/14/2018 CHLORIDE 104 04/14/2018 BUNSER 12 04/14/2018 CREATININE 0.80 04/14/2018 Lab Results Component Value Date ALT 23 04/14/2018 AST 23 04/14/2018 ALKPHOS 74 04/14/2018 BILITOT 1.0 04/14/2018 Vitamin D 25-OH Date Value Ref Range Status 10/17/2020 49 30 - 80 ng/mL Final Lab Results Component Value Date PTH 52 04/14/2018 CALCIUM 10.0 04/14/2018 PHOS 3.2 04/14/2018 ASSESSMENT: This is a 68 y.o. female with osteopenia with high fracture risk. Bone density has worsened in the hip. PLAN: I recommended to start therapy with zoledronic acid (Reclast). I reviewed the risks associated withIV bisphosphonate therapy including but not limited to a flu-like syndrome, arthralgia, myalgia, delayed jaw bone healing. Therapy plan in the chart.([facility] at [facility]). In addition, she should aim for calcium of 6874-5200 mg per day through dietary intake or supplements. Continue the current dose of vitamin-D. Will check a BMP and vitamin-D level. I also counseled her on healthy exercise patterns for bone disease and the importance of precautions to prevent falls. I've asked her to notify me with any problems or questions, or of any new fractures or complications related to her disease. She is to return to the clinic in about one year with repeat bone density. Thank you for sending your patient to the [facility] at [facility]. If you have any questions or concerns please do not hesitate to contact me. LINER documented in this encounter Plan of Treatment Scheduled Orders Name Type Priority Associated Diagnoses Orde r Schedule Basic metabolic panel Lab Routine Age-related osteoporosis without current pathological fracture Expected: 05/12/2024, Expires: 05/12/2025 Vitamin D 25 hydroxy Lab Routine Age-related osteoporosis without current pathological fracture Expected: 05/12/2024, Expires: 11/12/2025 documented as of this encounter Visit Diagnoses Diagnosis Age-related osteoporosis without current pathological fracture- Primary documented in this encounter Historical Medications * This list may reflect changes made after this encounter. cholecalciferol, vitamin D3, (VITAMIN D3 ORAL) Take by mouth amLODIPine (NORVASC) 2.5 mg tablet Take 1 tablet (2.5 mg total) by mouth daily 04/27/2024 added in this encounter Care Teams Labor Relations Specialist Relationship Specialty Start Date End Date Jacob Hunt MD [address] [facility] [address] [place] [address] PCP - General Family Medicine 05/12/24 documented as of this encounter
--- OUTSIDE RECORDS SUMMARY | 2024-05-13 14:50 | XMS_ITS | Clinical Summary ---
Author Organization [facility] [employer] Address [address] [place] [address] Care Team Providers Care Bleacher [employer] Pul[employer] Name Role Phone Samanta Aguayo MD Primary Care Provider + Source Comments [facility],non-owned Affiliates and Associated Physician Practices is amultiple site organization consisting of ambulatory clinics and hospital sitesin [place], [place], [place] and [place]. This disclosure is being madepursuant to the Care Everywhere program and may not contain all information available regarding this patient. Last updated 17.[facility] [employer] Allergies No known active allergies Medications * [...] [facility] [address] [place] [address] Kain Caceres MD [address] [place] [address] Health Maintenance Due Date Last Done Comments [...] age to complete this topic Care Teams Bleacher [employer] Relationship Specialty Start Date End Date Samanta Aguayo MD [address] [place] [address] PCP - General 05/09/20
--- OUTSIDE RECORDS SUMMARY | 2024-05-13 14:50 | XMS_ITS | Encounter Summary ---
Author Organization [facility] Address [address] [facility] [address] Care Team Providers Care Stereotyper Helper Name Role Phone Samanta Aguayo MD Primary Care Provider + Encounter Details Date Type Department Care Team (Late st Contact Info) Description 05/10/2020 Lab Requisition [facility] Care DermPath Lab [address] [facility], [facility] [place] [address] Miri Bedolla MD [address] [facility] [address] [place] [address] Social History Tobacco Use Types Packs/Day Years Used Date Smoking Tobacco: Never Assessed Sex and Gender Information Value Date Recorded Sex Assigned at Not on file Gender Identity Not on file Sexual Orientation Not on file documented as of this encounter Plan of Treatment Upcoming Encounters Date Type Department Care Team (Late Contact Info) Description 06/09/2024 12:15 PM CDT Office Visit [facility] - Orthopedic Surgery [address] [place] [address] Kain Caceres MD [address] [place] [address] documented as of this encounter Procedures Procedure Name Priority Date/Time Associated Diagnosis Comments DERMATOPATHOLOGY Routine 05/09/2020 12:0 0 AM MUSIC JOURNALIST documented in this encounter Results * DERMATOPATHOLOGY (05/09/2020 12:00 AM MUSIC JOURNALIST) Case Report Dermatopathology Report Case: [id number] Authorizing Provider: Miri Bedolla MD Collected: 05/09/2020 12:00 AM Ordering Location: [facility] DermPath Lab Received: 05/10/2020 10:37 AM Pathologist: Kristel Lopez MD Specimen: Skin, suprapubic 4:09 PM [facility] DERMATOPATHOLOGY LABORATORY Final Diagnosis Specimen A. 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 The specimen consists of a punch biopsy measuring 8x8x9 mm, bisected. Jar 0. 4:09 PM [facility] DERMATOPATHOLOGY LABORATORY Microscopic Description Specimen A. SKIN, suprapubic: There is a dome-shaped portion of skin with psoriasiform epidermal hyperplasia, compact hyperkeratosis, and fibrosis of the papillary dermis associated with a superficial perivascular lymphohistiocytic infiltrate. 4:09 PM [facility] DERMATOPATHOLOGY LABORATORY Disclaimer An external and internal positive and negative controls are appropriate for the histochemical, immunohistochemical and immunofluorescence stain(s) in this case (if any), except where stated explicitly. The performance characteristics of the stain(s) cited in this report were developed and its performance characteristic determined by the Dermatopathology Laboratory at [facility], directed by Dr. Crow Lopez. These tests need not be, and therefore are not, approved by the [place] Food and Drug Administration. The tests are used for clinical purposes. Billing Codes Specimen Charges Stain Charges 82708 1 4:09 PM [facility] DERMATOPATHOLOGY LABORATORY Embedded Images 4:09 PM [facility] DERMATOPATHOLOGY LABORATORY Pathology/Cytolog y TISSUE SPECIMEN FROM SKIN / Unknown 05/09/2020 05/10/2020 10:37 AM MUSIC JOURNALIST Miri Bedolla MD LAB - PATHOLOGY/CYTO LOGY ORDERABLES DERMATOPATHOLOGY LABORATORY [facility] - Department of Dermatology [facility] Medicine [address] [place] [address], [address] [phone] documented in this encounter Visit Diagnoses Not on filedocumented in this encounter Care Teams Stereotyper Helper Relationship Specialty Start Date End Date Samanta Aguayo MD [address] [place] [address] PCP - General 05/09/20 documented as of this encounter
--- OUTSIDE RECORDS SUMMARY | 2024-05-13 14:50 | XMS_ITS | Referral Summary ---
Author Organization [facility] Address [address] [place] [address] Care Team Providers Care Political Researcher Name Role Phone Samanta Aguayo MD Primary Care Provider + Source Comments [facility],non-owned Affiliates and Associated Physician Practices is amultiple site organization consisting of ambulatory clinics and hospital sitesin [place], [place], [place] and [place]. This disclosure is being madepursuant to the Care Everywhere program and may not contain all information available regarding this patient. Last updated 17.[facility] Allergies No known active allergies Medications * [...] Description 06/09/2024 12:15 PM CDT Office Visit [facility] - Orthopedic Surgery [address] [place] [id number] Kain Caceres MD [address] [place] [address] Care Teams Political Researcher Relationship Specialty Start Date End Date Samanta Aguayo MD [address] [place], [place] [id number] PCP - General 05/09/20
--- OUTSIDE RECORDS SUMMARY | 2024-05-13 14:50 | XMS_ITS | Continuity of Care Document ---
Author Organization [facility] Address [address] [place] [address] Phone Care Team Providers Care Solution Professional Name Role Phone Landon Vyas PT Unavailable [...] extr joint, w/o contrast 2012 [place] [facility] [place] visit,est, mod 2012 Physical Tx excercises each 15 min [place] [facility] [place] Drain/Inj Major Joint/Bursa(Shldr, Hip, Knee, Subacrom Bursa) Kenalog X-ray exam of shoulder, complete 2012 Office/outpatient visit,est, mod 2009 X-ray exam of knee, 3 views Office/[place] [facility] [place] Drain/inject major jointor bursa 2008 Kenalog [...] Diagnoses Date Provider Providers Copied on Encounter [facility], [address], [place], [id number], tel:[phone] [facility] 6 Asael Navarrete. [address], [place], [id number], . tel:[phone] Referring Provider: Shawn Humphries, [address] [place], [address] . tel:[phone] [facility], [address] [place] [address], [id number], [place] tel:[phone] [facility] May-2 5-201 6 Asael Pammela. [address], [place], [id number], [place]. tel:[phone] Referring Provider: Shawn Humphries, [address] [place], [address] . tel:[phone] [facility], [address] [place] [address], [id number], [place] tel:[phone] [facility] May-2 2-201 6 Asael Pammela. [address], [place], [id number], [place]. tel:[phone] Referring Provider: Shawn Humphries, [address] [place] [address], [address] . tel:[phone] [facility], [address] [place] [address], [id number], [place] tel:[phone] [facility] May- 8201 6 Asael Pammela. [address], [place], [id number], [place]. tel:[phone] Referring Provider: Shawn Humphries, [address] [place], [address] . tel:[phone] [facility], [address] [place] [address], [id number], [place] tel:[phone] [facility] May- 4-201 6 Asael Pammela. [address] [place] [address], [id number], [place]. tel:[phone] Referring Provider: Shawn Humphries, [address] [place] [address], [address] . tel:[phone] [facility], [address] [place] [address], [id number], [place] tel:[phone] [facility] May- 1-201 6 Asael Pammela. [address] [place] [address], [id number], [place]. tel:[phone] Referring Provider: Shawn Humphries, [address] [place], [address] . tel:[phone] [facility], [address] [place] [address], [id number], [place] tel:[phone] [facility] Mar-0 9-201 6 Asael Pammela. [address], [place], [id number], [place]. tel:[phone] Referring Provider: Shawn Humphries, [address] [place], [address] . tel:[phone] [facility], [address] [place] [address], [id number], [place] tel:[phone] [facility] Mar-0 7-201 6 Asael Pammela. [address] [place] [address], [id number], [place]. tel:[phone] Referring Provider: Shawn Humphries, [address] [place], [address] . tel:[phone] [facility], [address] [place] [address], [id number], [place] tel:[phone] [facility]-0 4-201 6 Asael Pammela. [address], [place], [id number], [place]. tel:[phone] Referring Provider: Shawn Humphries, [address] [place] [address], [address] . tel:[phone] [facility], [address] [place] [address], [id number], [place] tel:[phone] [facility] Mar-0 1-201 6 Asael Pammela. [address] [place] [address], [id number], [place]. tel:[phone] Referring Provider: Shawn Humphries, [address] [place] [address], [address] . tel:[phone] [facility], [address] [place] [address], [id number], tel:[phone] [facility] Cervical[facility] 6 Asael Navarrete. [address] [place] [address], [id number], . tel:[phone] Referring Provider: Shawn Humphries, [address] [place] [address], [address] . tel:[phone] Office/outpa tient visit,est, [facility], [address] [place] [address], [id number], tel:[phone] [facility] cervical spine (chief complaint) Neck painDDD (degenerative disc disease), cervicalRight arm pain 6 Hitesh Yang. [address] [place] [address], [id number], . tel:[phone] Referring Provider: Celia Humphries, [address] [place] [address], [address] . tel:[phone] Office/outpa tient visit,est, [facility], [address] [place] [address], [id number], tel:[phone] [facility] Shoulder (chief complaint) CervicalgiaPai n in right shoulder 5 Roque Amaya. [address] [place] [address], [id number], . tel:[phone] Office/outpa tient visit,est, [facility], [address] [place] [address], [id number], tel:[phone] [facility] shoulder (chief complaint) Neck painRight shoulder pain 5 Rey Woodard. [address] [place] [address], [id number], . tel:[phone] Office/outpa tient visit,est, [facility], [address] [place] [address], [id number], tel:[phone] [facility] shoulder (chief complaint) Tendinitis of right rotator cuff 5 Roque Amaya. [address], [place], [id number], [place]. tel:[phone] Office/outpa tient visit,est, [facility], [address] [place] [address], [id number], [place] tel:[phone] [facility] right shoulder pain (chief complaint) Tendonitis/Ten osynovitis Shoulder-CHRON ICPartial Tear Of Rotator Cuff (Chronic) 4 Roque Amaya. [address], [place], [id number], [place]. tel:[phone] Office/outpa tient visit,est, [facility], [address] [place] [address], [id number], [place] tel:[phone] [facility] right shoulder pain (chief complaint) Tendonitis/Ten osynovitis Shoulder-CHRON IC 3 Rey Woodard. [address], [id number], [place]. tel:[phone] Office/outpa tient visit,est, [facility], [address] [place] [address], [id number], [place] tel:[phone] [facility] Tendonitis/Ten osynovitis Shoulder-CHRON ICPartial Tear Of Rotator Cuff (Chronic) 3 Roque Amaya. [address], [id number], [place]. tel:[phone] Office/outpa tient visit,est, [facility], [address] [place] [address], [id number], [place] tel:[phone] [facility] Billing ReviewBilling Review 3 Rey Woodard. [address], [place], [id number], [place]. tel:[phone] Referring Provider: Christ Peña, [address] [place], [address] . tel:[phone] Office/outpa tient visit,est, mod [facility], [address] [place] [address], [id number], [place] tel:[phone] [facility] Pain In Shoulder JointRotator Cuff Tear - ACUTE 3 Mariana Polo. [address], [place], [id number], [place]. tel:[phone] [facility], [address] [place] [address], [id number], [place] tel:[phone] [facility] Rotator Cuff Tear - ACUTE 3 Mariana Polo. [address], [place], [id number], [place]. tel:[phone] Referring Provider: Christ Peña, [address] [place], [address] . tel:[phone] Office/outpa tient visit,[facility], [facility], [address] [place] [address], [id number], [place] tel:[phone] [facility] Pain In Shoulder JointRotator Cuff Tear - ACUTE 3 Raghu Hernandez. [address] [place] [address], [id number], [place]. tel:[phone] Office/outpa tient visit,[facility], [facility], [address] [place] [address], [id number], tel:[phone] [facility] Tendonitis/Ten osynovitis Shoulder 3 Raghu Hernandez. [address] [place] [address], [id number], [place]. tel:[phone] Referring Provider: Mary Kuo, [address] [place] [address], [address] . tel:[phone] [facility], [address] [place] [address], [id number], tel:[phone] [facility] No Information 3 Ro Luciano. [address], [place], [id number], . tel:[phone] Referring Provider: Christ Peña, [address] [place], [address] . tel:[phone] Office/outpa tient visit,[facility], [address] [place] [address], [id number], tel:[phone] PEGGY FISHER No Information 2 0-201 3 Raghu Mary. [address], [place], [id number], [place]. tel:[phone] Office/outpa tient visit,[facility], [facility], [address] [place] [address], [id number], tel:[phone] [facility] No Information Aug-1 1-201 0 Raghu Mary. [address] [place] [address], [id number], . tel:[phone] Referring Provider: Kyle Galvin, [address], [place], [address]. tel:[phone] Office/outpa tient visit,[facility], [address] [place] [address], [id number], tel:[phone] [facility] No Information May-0 4-200 9 Mariana Polo. [address] [place] [address], [id number], . tel:[phone] Referring Provider: yKle Galvin, [address], [place], [address]. tel:[phone] [facility], [address] [place] [address], [id number], tel:[phone] [facility] No Information Mao-3 0-200 8 Mariana Polo. [address] [place] [address], [id number], . tel:[phone] [facility], [address] [place] [address], [id number], tel:[phone] [facility] No Information Mao-2 5-200 8 Peña Christ. [address] [place] [address], [id number], . tel:[phone] [facility], [address] [place] [address], [id number], tel:[phone] [facility] No Information Mao-1 2-200 8 Peña Christ. [address] [place] [address], [id number], . tel:[phone] [facility], [address] [place] [address], [id number], tel:[phone] [facility] No Information Mao-0 5-200 8 Peña Christ. [address] [place] [address], [id number], . tel:[phone] Office/outpa tient visit,[facility], [facility], [address] [place] [address], [id number], tel:[phone] [facility] No Information May-2 8-200 8 No Information Referring Provider: Kyle Galvin[address], [place], [address]. tel:[phone] [facility], [address] [place] [address], [id number], tel:[phone] [facility] No Information Apr-1 7-200 8 Peña Christ. [address] [place] [address], [id number], . tel:[phone] [facility], [address] [place] [address], [id number], tel:[phone] [facility] No Information Apr-1 0-200 8 Peña Christ. [address] [place] [address], [id number], . tel:[phone] Office/outpa tient visit,est, low [facility], [address] [place] [address], [id number], tel:[phone] [facility] No Information Apr-0 2-200 8 No Information Referring Provider: Kyle Galvin, [address], [place], [address]. tel:[phone] [facility], [address] [place] [address], [id number], tel:[phone] [facility] No Information May-2 7-200 8 Peña Christ. [address] [place] [address], [id number], . tel:[phone] [facility], [address] [place] [address], [id number], tel:[phone] [facility] No Information 0 6200 8 Peña Christ. [address] [place] [address], [id number], . tel:[phone] [facility], [address] [place] [address], [id number], tel:[phone] [facility] No Information 2 9200 8 Peña Christ. [address] [place] [address], [id number], . tel:[phone] [facility], [address] [place] [address], [id number], tel:[phone] [facility] No Information 9200 8 Peña Christ. [address] [place] [address], [id number], . tel:[phone] [facility], [address] [place] [address], [id number], tel:[phone] [facility] No Information 1200 8 Peña Christ. [address] [place] [address], [id number], . tel:[phone] [facility], [address] [place] [address], [id number], tel:[phone] [facility] No Information 9200 8 Peña Christ. [address] [place] [address], [id number], [place]. tel:[phone] Office/outpa tient visit,est, mod [facility], [address] [place] [address], [id number], tel:[phone] [facility] No Information 0 9200 7 Mariana Polo. [address] [place] [address], [id number], . tel:[phone] Referring Provider: Kyle Galvin, [address] [place] [address] Dr Mc, [place], [address]. tel:[phone] [facility], [address] [place] [address], [id number], tel:[phone] [facility] No Information 0 2200 7 Mariana Polo. [address] [place] [address], [id number], . tel:[phone] Referring Provider: Christ Peña, [address] [place] [address], [address] . tel:[phone] Office/outpa tient visit,est, mod [facility], [address] [place] [address], [id number], tel:[phone] [facility] No Information 2 3-200 7 No Information [facility], [address] [place] [address], [id number], tel:[phone] [facility] No Information 4-200 7 Mariana Polo. [address] [place] [address], [id number], [place]. tel:[phone] [facility], [address] [place] [address], [id number], [place] tel:[phone] [facility] No Information 0 200 7 Mariana Polo. [address] [place] [address], [id number], . tel:[phone] Office/outpa tient visit,est, mod [facility], [address] [place] [address], [id number], tel:[phone] [facility] No Information 6 7 Mariana Polo. [address], [place], [id number], . tel:[phone] Office consultation , moderate [facility], [address], [place], [id number], tel:[phone] [facility] No Information 0200 7 No Information Referring Provider: Kyle Galvin, [address] [place] [address] Dr Mc, [place], [address]. tel:[phone] Family History Family Member Type Diagnosis Age At Onset Father Problem (finding) malignant neoplasm of l brock Brother Problem (finding) cancer of colon Payers Payer name Insurance type Covered green party ID Authoriza tion(s) BC[employer] ([facility]) [id number] [facility] Claims [id number] Social History Type Description Quantity Date Captured Comments Sex Female Smoking Status No Information Chief Complaint And Reason For Visit No Information Reason For Referral Reason For Referral No Information Plan Of Treatment Date Type Action Status Referral Ordered: Albert Lala -Physical Medicine and Rehabilitation (related to DDD (degenerative disc disease), cervical) ordered Referral Referred To: Albert Lala [address] [place], [place], [id number] Ordered: Referrals: Physical Medicine and Rehabilitation. Albert Lala. Consult ordered Future Order: Radiology Order Sp ine Xray Cervical 4 Or 5 Views ([id number]), Ordered on: Ordered Future Order: Radiology Order EM G 1 Extremity ([id number]), Ordered on: Ordered Future Order: Radiology Order Ne rve Conduction Studies 13 Or More Studies ([id number]), Ordered on: Ordered Future Order: Radiology Order MR I Cervical Spine WO Contrast ([id number]), Ordered on: Ordered Future Order: Radiology Order Ch est Xray 2 Views Frontal And Lateral ([id number]), Ordered on: Ordered Future Order: Radiology Order Sh oulder Xray Complete Min Of 2 Views ([id number]), Ordered on: Ordered History Of Present Illness [...]
== END 2024-05-13 13:24 | disposition home or self-care (01) ==
PROVIDERS: PCP Family Medicine
DX: M81.0 Age-related osteoporosis without current pathological fracture (principal)
CPT/HCPCS: 36415; 80048; 82306

== ENCOUNTER 2024-05-25 14:38 | Outpatient (CLI) | payer MEDICARE, BC, OTHER, SELFPAY ==
--- NOTE | ~2024-05-25 | MR_ITS ---
MRI of the left hip Clinical history: Trochanteric bursitis, soft tissue mass in posterior buttock Technique: Coronal T1-weighted, T2-weighted, and proton-density fat-sat images, and axial T1-weighted and proton-density fat-sat images were acquired through the pelvis. Coronal T2-weighted images and c oronal, axial, and sagittal proton-density fat-sat images were acquired through the left hip. Follow ing intravenous administration of 13 cc ProHance gadolinium, T1-weighted fat-sat imaging was performe d in the axial and coronal planes. COMPARISON: Pelvic radiograph dated 09/28/2020 Findings: There is no acute fracture or avascular necrosis of either hip. There is stable circumscrib ed lesion in the intertrochanteric region of the proximal right femur measuring 5 cm in length, with area of superior fluid attenuation and inferior fat attenuation, which corresponds with a stable appe aring circumscribed lesion on prior radiograph with thin sclerotic margin. No other bone marrow signa l abnormality identified in the proximal femora or pelvic bones. Articular cartilage of both hip join ts is relatively well-preserved. No significant joint effusion identified. No acetabular labral tear evident. Visualized musculature about the pelvis and left hip is unremarkable. No muscle atrophy or edema. Ten dons appear intact. No soft tissue mass or fluid collection evident. No evidence for trochanteric bur sitis. No abnormal/suspicious postcontrast enhancement identified. IMPRESSION: A circumscribed benign-appearing lesion in the intertrochanteric region of the proximal right femur i s essentially stable dating back to 2020, suggestive of bone infarct versus other benign lesion. No other significant findings. No soft tissue mass. No acute osseous or articular abnormality. Reviewed, dictated and finalized at [facility]. IMPRESSION: A circumscribed benign-appearing lesion in the intertrochanteric region of the proximal right femur is essentially stable dating back to 2020, suggestive of b one infarct versus other benign lesion. No other significant findings. No soft tissue mass. No acute osseous or articul ar abnormality.
--- OUTSIDE RECORDS SUMMARY | 2024-05-25 16:31 | XMS_ITS | Clinical Summary ---
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
--- OUTSIDE RECORDS SUMMARY | 2024-05-25 16:31 | XMS_ITS | Referral Summary ---
Author Organization [facility] Address [address] [place] [address] Care Team Providers Care Retail Marketing Executive Name Role Phone Jacob Hunt MD Primary Care Provider Encounters Date Type Department Care Team Description 05/18/2024 Orders Only [address] [place] [address] Rosalie Man MD 05/12/[address] [place] [id number] Rosalie Man MD Treatment Plan Update (Continue reclast) 05/12/2024 9:30 AM SENIOR SCIENCE CONSULTANT Clinical Support [address] [place] [address] Age-related osteoporosis without current pathological fracture (Primary Dx); Osteopenia of multiple sites 05/12/2024 10:00 AM SENIOR SCIENCE CONSULTANT Office Visit [address] [place] [address] Rosalie Man MD Age-related osteoporosis without current pathological fracture (Primary Dx) 04/07/2024 Orders Only [facility] [address] [place] [address] [place] [address] Rosalie Man MD Osteopenia of [...] on file Legal Sex Female 5:06 AM SENIOR SCIENCE CONSULTANT Gender Identity Not on file Sexual Orientation Not on file Last Filed Vital Signs Vital Sign Reading Time Taken Comments Blood Pressure - - Pulse - - Temperature - - Respiratory Rate - - Oxygen Saturation - - Inhaled Oxygen Concentration - - Weight 67.6 kg (149 lb 1.6 oz) 05/12/2024 9:40 A M SENIOR SCIENCE CONSULTANT Height 167.6 cm (5' 6 ) 05/12/2024 9:40 AM SENIOR SCIENCE CONSULTANT Body Mass Index 24.07 05/12/2024 9:40 AM SENIOR SCIENCE CONSULTANT Plan of Treatment Not on file Procedures Procedure Name Priority Date/Time Associated Diagnosis Comments SCAN - LABS Routine 05/13/2024 11:47 AM SENIOR SCIENCE CONSULTANT DEXA TBS AXIAL SKELETON BONE DENSITY 1 OR MORE SITES Schedule Routine, Read Routine (OP Routine) 05/12/2024 9:40 AM SENIOR SCIENCE CONSULTANT Osteopenia of multiple sites from Last 3 Months Results * SCAN - LABS (05/13/2024 11:47 AM SENIOR SCIENCE CONSULTANT) Rosalie Man MD Final Result EXTERNAL LAB * Dexa TBS Axial Skeleton Bone Density 1 or more sites (05/12/2024 9:40 AM SENIOR SCIENCE CONSULTANT) Anatomical Region Laterality Modality Wrist, Body N/A Radiographic Deepa ging Narrative 05/12/2024 12:38 PM SENIOR SCIENCE CONSULTANT Patient Name: Suzette Louise Date of : 1955 Date of scan: 05/12/2024 Bone mineral density was performed on a [employer] [place] Discovery Densitometer. Based on machine cross-calibration and [...] by the International Society of Clinical Densitometry. [id number] Rosalie Man MD IMG DXA PROCEDURES Final Resu lt from Last 3 Months Insurance [employer]IC[employer] [facility] Address: [address] [address] [place] [address] [facility] MEDICARE BLUE [employer] [place] [employer] [facility] Care Teams Retail Marketing Executive Relationship Specialty Start Date End Date Jacob Hunt MD [address] [facility] [address] [place] [address] PCP - General Family Medicine 05/12/24
--- OUTSIDE RECORDS SUMMARY | 2024-05-25 16:31 | XMS_ITS | Encounter Summary ---
Author Organization [facility] Address [address] [place] [address] Phone Care Team Providers Care Finger Buffs Assembler Name Role Phone Jacob Hunt MD Primary Care Provider Reason for Visit * Reason Onset Date Comments Treatment Plan Update 05/12/2024 Continue r eclast Encounter Details Date Type Department Care Team (Late st Contact Info) Description 05/12/2024 Telephone [facility] [address] [facility] Office Building [address] [place] [address] Rosalie Man MD [address] [place] [address] [address] [place] [address] Treatment Plan Update (Continue reclast) Social History Tobacco Use Types Packs/Day Years Used Date Smoking Tobacco: Never Smokeless Tobacco: Never Comments Unknown Sex and Gender Information Value Date Recorded Sex Assigned at Not on file Legal Sex Female 5:06 AM SHIPPING CLERK/ADMIN Gender Identity Not on file Sexual Orientation Not on file documented as of this encounter Miscellaneous Notes * Telephone Encounter - Joan Phillips CMA - 05/20/2024 2:08 PM CDT Infusion appointment has been requested. Pt labs completed on 05/13/24 and have been scanned to chart * Telephone Encounter - Donya Killian CMA - 05/12/2024 10:28 AM SHIPPING CLERK/ADMIN Continue reclast. Per Dr. Man To be done at [facility]. Labs to be compelted. Therapy plan in chart. Please send apt request when labs and insurance are back PING CLERK/ADMIN * Telephone Encounter - Donya Killian CMA - 05/12/2024 10:27 AM SHIPPING CLERK/ADMIN Patient was seen by Dr. Man today for an office visit. The following was recommended for the patient Reclast. Additional Comments: Continue reclast at [facility]. Labs. One year. PING CLERK/ADMIN documented in this encounter Plan of Treatment Not on file documented as of this encounter Visit Diagnoses Diagnosis Age-related osteoporosis without current pathological fracture- Primary documented in this encounter Orders Appointment Requests Count Last Ordered Date Fi rst Ordered Date INFUSION APPT REQUEST 60 MIN 1 05/20/2024 documented in this encounter Care Teams Finger Buffs Assembler Relationship Specialty Start Date End Date Jacob Hunt MD [address] [place] [address] PCP - General Family Medicine 05/12/24 documented as of this encounter
--- OUTSIDE RECORDS SUMMARY | 2024-05-25 16:31 | XMS_ITS | Encounter Summary ---
Author Organization [facility] Address [address] [place] [address] Care Team Providers Care Water Resource Manager Name Role Phone Samanta Aguayo MD Primary Care Provider [phone]- [phone] Reason for Visit * Reason Onset Date Comments Follow Up 01/18/2021 pt called back Encounter Details Date Type Department Care Team (Late st Contact Info) Description 01/18/2021 Telephone [facility] Pre Procedure Phase II [address] [place] [address] Daisy Nunez, RN Follow Up [...] Vicky Jacobo RN - 01/18/2021 9:59 AM SOIL CONSERVATION TECHNICIAN 01/18/2021 9:59 AM Name: Suzette Turner [...] clinic with any questions or concerns at [phone] HOME Hodgson RN Barker Operator - Spine & Pain HOD Procedures Office: [phone] CONSERVATION TECHNICIAN documented in this encounter Plan of Treatment Not on file documented as of this encounter Visit Diagnoses Not on filedocumented in this encounter Care Teams Water Resource Manager Relationship Specialty Start Date End Date Samanta Aguayo MD PCP - General Family Practice 08/11/20 documented as of this encounter
--- OUTSIDE RECORDS SUMMARY | 2024-05-25 16:31 | XMS_ITS | Clinical Summary ---
Author Organization [facility] Address [facility] [place] [address] Care Team Providers Care Drag Seiner Name Role Phone Jacob Hunt MD Primary [...] Department Care Team Description 05/18/2024 Orders Only [address] [place] [address] Rosalie Man MD 05/12/2024 10:00 AM DESKTOP SPECIALIST Office Visit [address] [place] [phone] Rosalie Man MD Age-related osteoporosis without current pathological fracture (Primary Dx) 05/12/2024 9:30 AM DESKTOP SPECIALIST Clinical Support [address] [place] [phone] Age-related osteoporosis without current pathological fracture (Primary Dx); Osteopenia of multiple sites 05/12/[address] [place] [address] Rosalie Man MD Treatment Plan Update (Continue reclast) 04/07/2024 Orders Only [facility] [address] [facility] 5th [place] [address] [place] [phone] Rosalie Man MD Osteopenia of multiple sites (Primary Dx) from Last 3 Months Surgical History Surgery Date Site/Laterality Comments AL TOTAL ABDOMINAL HYSTERECT W/WO RMVL TUBE OVARY [...] on file Legal Sex Female 5:06 AM DESKTOP SPECIALIST Gender Identity Not on file Sexual Orientation Not on file Obstetrics History Last Filed Vital Signs Vital Sign Reading Time Taken Comments Blood Pressure - - Pulse - - Temperature - - Respiratory Rate - - Oxygen Saturation - - Inhaled Oxygen Concentration - - Weight 67.6 kg (149 lb 1.6 oz) 05/12/2024 9:40 A M DESKTOP SPECIALIST Height 167.6 cm (5' 6 ) 05/12/2024 9:40 AM DESKTOP SPECIALIST Body Mass Index 24.07 05/12/2024 9:40 AM DESKTOP SPECIALIST Plan of Treatment Health Maintenance Due Date [...] SCAN - LABS Routine 05/13/2024 11:47 AM DESKTOP SPECIALIST DEXA TBS AXIAL SKELETON BONE DENSITY 1 OR MORE SITES Schedule Routine, Read Routine (OP Routine) 05/12/2024 9:40 AM DESKTOP SPECIALIST Osteopenia of multiple sites from Last 3 Months Results * SCAN - LABS (05/13/2024 11:47 AM DESKTOP SPECIALIST) us Rosalie Man MD Final Result EXTERNAL LAB * Dexa TBS Axial Skeleton Bone Density 1 or more sites (05/12/2024 9:40 AM DESKTOP SPECIALIST) Anatomical Region Laterality Modality Wrist, Body N/A Radiographic Deepa ging Narrative 05/12/2024 12:38 PM DESKTOP SPECIALIST Patient Name: Suzette Louise Date of : 1955 Date of scan: 05/12/2024 Bone mineral density was performed on a [employer] Discovery Densitometer. Based on machine cross-calibration and [...] by the International Society of Clinical Densitometry. [id number] Rosalie Man MD IMG DXA PROCEDURES Final Resu lt from Last 3 Months Insurance [employer] MEDICARE [facility] MEDICARE BLUE ACCESS [place] ANTHEM ACCESS Care Teams Drag Seiner Relationship Specialty Start Date End Date Jacob Hunt MD [address] [place] [address] PCP - General Family Medicine 05/12/24
--- OUTSIDE RECORDS SUMMARY | 2024-05-25 16:31 | XMS_ITS | Clinical Summary ---
Author Organization [facility] [email or web address] Address [address] [place] [address] Care Team Providers Care Mincing Machine Operator Name Role Phone Samanta Aguayo MD Primary Care Provider + Source Comments [facility] [employer],non-owned Affiliates and Associated Physician Practices is amultiple site organization consisting of ambulatory clinics and hospital sitesin [place], [place], [place] and [place]. This disclosure is being madepursuant to the Care Everywhere program and may not contain all information available regarding this patient. Last updated 17.[facility] [email or web address] Allergies No known active allergies Medications * [...] [facility] [address] [place] [address] Kain Caceres MD [address] [place] [address] Health Maintenance Due Date Last Done Comments [...] complete this topic MENINGOCOCCAL (Group B) VACCINE SHARED DECISION-MAKING Aged Out No longer eligible based on patient's age to complete this topic MENINGOCOCCAL GROUPS A/C/Y/W VACCINE Aged Out No longer eligible based on patient's age to complete this topic Care Teams Mincing Machine Operator Relationship Specialty Start Date End Date Samanta Aguayo MD [address] [facility] [address] [place] [address] [facility] - General 05/09/20
--- OUTSIDE RECORDS SUMMARY | 2024-05-25 16:31 | XMS_ITS | Continuity of Care Document ---
Author Organization [facility] Address [address] [place] [address] Phone Care Team Providers Care Back Hoe Operator Name Role Phone Landon Vyas PT Unavailable [...] extr joint, w/o contrast 2012 [place] [facility] [place]patient visit,est, mod 2012 Physical Tx excercises each 15 min Office/out[place], [facility] [place] Drain/Inj Major Joint/Bursa(Shldr, Hip, Knee, Subacrom Bursa) Kenalog X-ray exam of shoulder, complete 2012 Office/outpatient visit,est, mod 2009 X-ray exam of knee, 3 views Office/out[place],est, [facility] [place] Drain/inject major jointor bursa 2008 [facility] [...] Diagnoses Date Provider Providers Copied on Encounter [facility], [address], [place], [id number], tel:[phone] [facility] 6 Asael Navarrete. [address], [place], [id number], . tel:[phone] Referring Provider: Shawn Humphries, [address] [place], [address] . tel:[phone] [facility], [address] [place] [address], [id number], [place] tel:[phone] [facility] May-2 5-201 6 Asael Pammela. [address], [place], [id number], [place]. tel:[phone] Referring Provider: Shawn Humphries, [address] [place], [address] . tel:[phone] [facility], [address] [place] [address], [id number], [place] tel:[phone] [facility] May-2 2-201 6 Asael Pammela. [address], [place], [id number], [place]. tel:[phone] Referring Provider: Shawn Humphries, [address] [place] [address], [address] . tel:[phone] [facility], [address] [place] [address], [id number], [place] tel:[phone] [facility] May- 8201 6 Asael Pammela. [address], [place], [id number], [place]. tel:[phone] Referring Provider: Shawn Humphries, [address] [place], [address] . tel:[phone] [facility], [address] [place] [address], [id number], [place] tel:[phone] [facility] May- 4-201 6 Asael Pammela. [address] [place] [address], [id number], [place]. tel:[phone] Referring Provider: Shawn Humphries, [address] [place] [address], [address] . tel:[phone] [facility], [address] [place] [address], [id number], [place] tel:[phone] [facility] May- 1-201 6 Asael Pammela. [address] [place] [address], [id number], [place]. tel:[phone] Referring Provider: Shawn Humphries, [address] [place], [address] . tel:[phone] [facility], [address] [place] [address], [id number], [place] tel:[phone] [facility] Mar-0 9-201 6 Asael Pammela. [address], [id number], [place]. tel:[phone] Referring Provider: Shawn Humphries, [address] [place], [address] . tel:[phone] [facility], [address] [place] [address], [id number], [place] tel:[phone] [facility] Mar-0 7-201 6 Asael Pammela. [address] [place] [address], [id number], [place]. tel:[phone] Referring Provider: Shawn Humphries, [address] [place], [address] . tel:[phone] [facility], [address] [place] [address], [id number], [place] tel:[phone] [facility] [place]-0 4-201 6 Asael Pammela. [address], [id number], [place]. tel:[phone] Referring Provider: Shawn Humphries, [address] [place] [address], [address] . tel:[phone] [facility], [address] [place] [address], [id number], [place] tel:[phone] [facility] Mar-0 1-201 6 Asael Pammela. [address] [place] [address], [id number], [place]. tel:[phone] Referring Provider: Shawn Humphries, [address] [place] [address], [address] . tel:[phone] [facility], [address] [place] [address], [id number], tel:[phone] [facility] Cervical[facility] 6 Asael Navarrete. [address] [place] [address], [id number], . tel:[phone] Referring Provider: Shawn Humphries, [address] [place] [address], [address] . tel:[phone] Office/outpa tient visit,est, [facility], [address] [place] [address], [id number], tel:[phone] [facility] cervical spine (chief complaint) Neck painDDD (degenerative disc disease), cervicalRight arm pain 6 Hitesh Yang. [address] [place] [address], [id number], . tel:[phone] Referring Provider: Celia Humphries, [address] [place] [address], [address] . tel:[phone] Office/outpa tient visit,est, [facility], [address] [place] [address], [id number], tel:[phone] [facility] Shoulder (chief complaint) CervicalgiaPai n in right shoulder 5 Roque Amaya. [address] [place] [address], [id number], . tel:[phone] Office/outpa tient visit,est, [facility], [address] [place] [address], [id number], tel:[phone] [facility] shoulder (chief complaint) Neck painRight shoulder pain 5 Rey Woodard. [address] [place] [address], [id number], . tel:[phone] Office/outpa tient visit,est, [facility], [address] [place] [address], [id number], tel:[phone] [facility] shoulder (chief complaint) Tendinitis of right rotator cuff 5 Roque Amaya. [address], [id number], [place]. tel:[phone] Office/outpa tient visit,est, [facility], [address] [place] [address], [id number], [place] tel:[phone] [facility] right shoulder pain (chief complaint) Tendonitis/Ten osynovitis Shoulder-CHRON ICPartial Tear Of Rotator Cuff (Chronic) 4 Roque Amaya. [address], [place], [id number], [place]. tel:[phone] Office/outpa tient visit,est, [facility], [address] [place] [address], [id number], [place] tel:[phone] [facility] right shoulder pain (chief complaint) Tendonitis/Ten osynovitis Shoulder-CHRON IC 3 Rey Woodard. [address], [place], [id number], [place]. tel:[phone] Office/outpa tient visit,est, [facility], [address] [place] [address], [id number], [place] tel:[phone] [facility] Tendonitis/Ten osynovitis Shoulder-CHRON ICPartial Tear Of Rotator Cuff (Chronic) 3 Roque Amaya. [address], [place], [id number], [place]. tel:[phone] Office/outpa tient visit,est, [facility], [address] [place] [address], [id number], [place] tel:[phone] [facility] Billing ReviewBilling Review 3 Rey Woodard. [address], [id number], [place]. tel:[phone] Referring Provider: Christ Peña, [address] [place], [address] . tel:[phone] Office/outpa tient visit,est, mod [facility], [address] [place] [address], [id number], [place] tel:[phone] [facility] Pain In Shoulder JointRotator Cuff Tear - ACUTE 3 Mariana Polo. [address], [place], [id number], [place]. tel:[phone] [facility], [address] [place] [address], [id number], [place] tel:[phone] [facility] Rotator Cuff Tear - ACUTE 3 Mariana Polo. [address], [id number], [place]. tel:[phone] Referring Provider: Christ Peña, [address] [place], [address] . tel:[phone] Office/outpa tient visit,[facility], [facility], [address] [place] [address], [id number], [place] tel:[phone] [facility] Pain In Shoulder JointRotator Cuff Tear - ACUTE 3 Raghu Hernandez. [address] [place] [address], [id number], [place]. tel:[phone] Office/outpa tient visit,[facility], [facility], [address] [place] [address], [id number], tel:[phone] [facility] Tendonitis/Ten osynovitis Shoulder 3 Raghu Hernandez. [address] [place] [address], [id number], [place]. tel:[phone] Referring Provider: Mary Kuo, [address] [place] [address], [address] . tel:[phone] [facility], [address] [place] [address], [id number], tel:[phone] [facility] No Information 3 Ro Luciano. [address], [place], [id number], . tel:[phone] Referring Provider: Christ Peña, [address] [place], [address] . tel:[phone] Office/outpa tient visit,[facility], [address] [place] [address], [id number], tel:[phone] PEGGY FISHER No Information 2 0-201 3 Raghu Mary. [address], [place], [id number], [place]. tel:[phone] Office/outpa tient visit,[facility], [facility], [address] [place] [address], [id number], tel:[phone] [facility] No Information Aug-1 1-201 0 Raghu Mary. [address] [place] [address], [id number], . tel:[phone] Referring Provider: Kyle Galvin, [address], [place], [address]. tel:[phone] Office/outpa tient visit,[facility], [address] [place] [address], [id number], tel:[phone] [facility] No Information May-0 4-200 9 Mariana Polo. [address] [place] [address], [id number], . tel:[phone] Referring Provider: Kyle Galvin, [address], [place], [address]. tel:[phone] [facility], [address] [place] [address], [id number], tel:[phone] [facility] No Information Mao-3 0-200 8 Mariana Polo. [address] [place] [address], [id number], . tel:[phone] [facility], [address] [place] [address], [id number], tel:[phone] [facility] No Information Mao-2 5-200 8 Peña Christ. [address] [place] [address], [id number], . tel:[phone] [facility], [address] [place] [address], [id number], tel:[phone] [facility] No Information Mao-1 2-200 8 Peña Christ. [address] [place] [address], [id number], . tel:[phone] [facility], [address] [place] [address], [id number], tel:[phone] [facility] No Information Mao-0 5-200 8 Peña Christ. [address] [place] [address], [id number], . tel:[phone] Office/outpa tient visit,[facility], [facility], [address] [place] [address], [id number], tel:[phone] [facility] No Information May-2 8-200 8 No Information Referring Provider: Kyle Galvin[address], [place], [address]. tel:[phone] [facility], [address] [place] [address], [id number], tel:[phone] [facility] No Information Apr-1 7-200 8 Peña Christ. [address] [place] [address], [id number], . tel:[phone] [facility], [address] [place] [address], [id number], tel:[phone] [facility] No Information Apr-1 0-200 8 Peña Christ. [address] [place] [address], [id number], . tel:[phone] Office/outpa tient visit,est, low [facility], [address] [place] [address], [id number], tel:[phone] [facility] No Information Apr-0 2-200 8 No Information Referring Provider: Kyle Galvin, [address], [place], [address]. tel:[phone] [facility], [address] [place] [address], [id number], tel:[phone] [facility] No Information May-2 7-200 8 Peña Christ. [address] [place] [address], [id number], . tel:[phone] [facility], [address] [place] [address], [id number], tel:[phone] [facility] No Information 0 6200 8 Peña Christ. [address] [place] [address], [id number], . tel:[phone] [facility], [address] [place] [address], [id number], tel:[phone] [facility] No Information 2 9200 8 Peña Christ. [address] [place] [address], [id number], . tel:[phone] [facility], [address] [place] [address], [id number], tel:[phone] [facility] No Information 9200 8 Peña Christ. [address] [place] [address], [id number], . tel:[phone] [facility], [address] [place] [address], [id number], tel:[phone] [facility] No Information 1200 8 Peña Christ. [address] [place] [address], [id number], . tel:[phone] [facility], [address] [place] [address], [id number], tel:[phone] [facility] No Information 9200 8 Peña Christ. [address] [place] [address], [id number], [place]. tel:[phone] Office/outpa tient visit,est, mod [facility], [address] [place] [address], [id number], tel:[phone] [facility] No Information 0 9200 7 Mariana Polo. [address] [place] [address], [id number], . tel:[phone] Referring Provider: Kyle Galvin, [address] [place] [address] Dr Mc, [place], [address]. tel:[phone] [facility], [address] [place] [address], [id number], tel:[phone] [facility] No Information 0 2200 7 Mariana Polo. [address] [place] [address], [id number], . tel:[phone] Referring Provider: Christ Peña, [address] [place] [address], [id number] . tel:[phone] Office/outpa tient visit,est, mod [facility], [address] [place] [address], [id number], tel:[phone] [facility] No Information 2 3-200 7 No Information [facility], [address] [place] [address], [id number], tel:[phone] [facility] No Information 4-200 7 Mariana Polo. [address] [place] [address], [id number], [place]. tel:[phone] [facility], [address] [place] [address], [id number], [place] tel:[phone] [facility] No Information 0 200 7 Mariana Polo. [address] [place] [address], [id number], . tel:[phone] Office/outpa tient visit,est, mod [facility], [address] [place] [address], [id number], tel:[phone] [facility] No Information 6 7 Mariana Polo. [address], [place], [id number], . tel:[phone] Office consultation , moderate [facility], [address], [place], [id number], tel:[phone] [facility] No Information 0200 7 No Information Referring Provider: Kyle Galvin, [address] [place] [address] Dr Mc, [place], [address]. tel:[phone] Family History Family Member Type Diagnosis Age At Onset Father Problem (finding) malignant neoplasm of l brock Brother Problem (finding) cancer of colon Payers Payer name Insurance type Covered libertarian ID Authoriza tion(s) BCBS ([facility] [id number] [facility] Claims [id number] Social History Type Description Quantity Date Captured Comments Sex Female Smoking Status No Information Chief Complaint And Reason For Visit No Information Reason For Referral Reason For Referral No Information Plan Of Treatment Date Type Action Status Referral Ordered: [facility]ala -Physical Medicine and Rehabilitation (related to DDD (degenerative disc disease), cervical) ordered Referral Referred To: Albert Lala [address], [place], [id number] Ordered: Referrals: Physical Medicine and Rehabilitation. Albert Lala. Consult ordered Future Order: Radiology Order Sp ine Xray Cervical 4 Or 5 Views ([id number]), Ordered on: Ordered Future Order: Radiology Order EM G 1 Extremity ([id number]), Ordered on: Ordered Future Order: Radiology Order Ne rve Conduction Studies 13 Or More Studies ([id number]), Ordered on: Ordered Future Order: Radiology Order MR I Cervical Spine WO Contrast ([id number]), Ordered on: Ordered Future Order: Radiology Order Ch est Xray 2 Views Frontal And Lateral ([id number]), Ordered on: Ordered Future Order: Radiology Order Sh oulder Xray Complete Min Of 2 Views ([id number]), Ordered on: Ordered History Of Present Illness [...]
--- OUTSIDE RECORDS SUMMARY | 2024-05-25 16:31 | XMS_ITS | Encounter Summary ---
Author Organization [facility] Address [address] [place] [address] Care Team Providers Care General Manager Land Department Name Role Phone Samanta Aguayo MD Primary Care Provider + Encounter Details Date Type Department Care Team (Late st Contact Info) Description 05/10/2020 Lab Requisition [facility] [address] [facility] [place] [address] Miri Bedolla MD [address] [facility] [address] [place] [address] Social History Tobacco Use Types Packs/Day Years Used Date Smoking Tobacco: Never Assessed Sex and Gender Information Value Date Recorded Sex Assigned at Not on file Gender Identity Not on file Sexual Orientation Not on file documented as of this encounter Plan of Treatment Upcoming Encounters Date Type Department Care Team (Late Contact Info) Description 06/09/2024 12:15 PM CDT Office Visit [facility] - Orth[facility] Surgery [address] [place] [id number] Kain Caceres MD [address] [place] [address] documented as of this encounter Procedures Procedure Name Priority Date/Time Associated Diagnosis Comments DERMATOPATHOLOGY Routine 05/09/2020 12:0 0 AM PRINT OPERATOR documented in this encounter Results * DERMATOPATHOLOGY (05/09/2020 12:00 AM PRINT OPERATOR) Case Report Dermatopathology Report Case: [id number] Authorizing Provider: Miri Bedolla MD Collected: 05/09/2020 12:00 AM Ordering Location: [facility] Received: 05/10/2020 10:37 AM Pathologist: Kristel Lopez MD Specimen: Skin, suprapubic 4:09 PM [facility] Final Diagnosis Specimen A. 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 The specimen consists of a punch biopsy measuring 8x8x9 mm, bisected. Jar 0. 4:09 PM [facility] Microscopic Description Specimen A. SKIN, suprapubic: There is a dome-shaped portion of skin with psoriasiform epidermal hyperplasia, compact hyperkeratosis, and fibrosis of the papillary dermis associated with a superficial perivascular lymphohistiocytic infiltrate. 4:09 PM [facility] Disclaimer An external and internal positive and negative controls are appropriate for the histochemical, immunohistochemical and immunofluorescence stain(s) in this case (if any), except where stated explicitly. The performance characteristics of the stain(s) cited in this report were developed and its performance characteristic determined by the Dermatopathology Laboratory at [facility], directed by Dr. Crow Lopez. These tests need not be, and therefore are not, approved by the [place] Food and Drug Administration. The tests are used for clinical purposes. Billing Codes Specimen Charges Stain Charges 69522 1 4:09 PM [facility] Embedded Images 4:09 PM [facility] Pathology/Cytolog y TISSUE SPECIMEN FROM SKIN / Unknown 05/09/2020 05/10/2020 10:37 AM PRINT OPERATOR Miri Bedolla MD LAB - PATHOLOGY/CYTO LOGY ORDERABLES DERMATOPATHOLOGY LABORATORY [facility] - Department of Dermatology [facility] [address] [place] [address], [address] [phone] documented in this encounter Visit Diagnoses Not on filedocumented in this encounter Care Teams General Manager Land Department Relationship Specialty Start Date End Date Samanta Aguayo MD [address] [place] [address] PCP - General 05/09/20 documented as of this encounter
--- OUTSIDE RECORDS SUMMARY | 2024-05-25 16:31 | XMS_ITS | Clinical Summary ---
Author Organization [facility] Address [address] [place] [address] Care Team Providers Care Life Skills Coordinator Name Role Phone Samanta Aguayo MD Primary Care Provider [phone] Allergies No known active allergies Medications cycloSPORINE [...] Comments Blood Pressure 140/90 04/19/2021 9:54 AM STEEL ERECTING PUSHER Pulse 80 04/19/2021 9:54 AM STEEL ERECTING PUSHER Temperature 37.2 C (98.9 F) 12/27/2020 1:55 PM CDT Respiratory Rate 20 02/27/2021 7:49 AM STEEL ERECTING PUSHER Oxygen Saturation 99% 04/19/2021 9:54 AM STEEL ERECTING PUSHER Inhaled Oxygen Concentration - - Weight 73.9 kg (163 lb) 04/19/2021 9:54 AM STEEL ERECTING PUSHER Height 170.2 cm (5' 7 ) 04/19/2021 9:54 AM STEEL ERECTING PUSHER Body Mass Index 25.53 04/19/2021 9:54 AM STEEL ERECTING PUSHER Plan of Treatment Health Maintenance Due Date [...] 10/17/2020 Insurance MEDICARE PART A AND B [facility] Address: [address] [address] Care Teams Life Skills Coordinator Relationship Specialty Start Date End Date Samanta Aguayo MD PCP - General Family Practice 08/11/20
--- OUTSIDE RECORDS SUMMARY | 2024-05-25 16:31 | XMS_ITS | Continuity of Care Document ---
Author Organization [facility] Address [address] [place] [address] Phone Care Team Providers Care Talent Buyer Name Role Phone [facility] Unavailable Unavailable Procedures Procedure Date SO, Figure Of Eight Design Abduction Donato Gonzalez Advance Directives Directive Yes / No Effective Date File Name No Information Encounters Encounter Description Practice Location Reason(s) For Visit Diagnoses Date Provider Providers Copied on Encounter [facility], [address], [place], [address], [place] tel:[phone] [facility] No Information [facility]. [address], [place], [address], [place]. tel:[phone] Referring Provider: Christ Peña, [address] [place] [address], [address] . tel:[phone] Family History Family Member Type Diagnosis Age At Onset No Information Payers Payer name Insurance type Covered alliance party ID Authoriza tion(s) [facility] ([facility]) [id number] Social History Type Description Quantity Date Captured [...]
== END 2024-05-25 14:39 | disposition home or self-care (01) ==
PROVIDERS: PCP Family Medicine; Visit Provider Physician Assistant Surgical
DX: M70.62 Trochanteric bursitis, left hip (principal)
CPT/HCPCS: 73723; A9579

== ENCOUNTER 2024-10-09 08:00 | Emergency (ER) | payer MEDICARE, BC, OTHER, SELFPAY ==
--- OUTSIDE RECORDS SUMMARY | 2024-10-09 08:06 | XMS_ITS | Clinical Summary ---
Author Organization [place] [address] [facility] Address [address] [place] [address] Care Team Providers Care Auto Self Service Station Attendant Name Role Phone Samanta Aguayo MD Primary Care Provider [phone]- [phone] Allergies No known active allergies Medications cycloSPORINE [...] Comments Blood Pressure 140/90 04/19/2021 9:54 AM PROFILER OPERATOR Pulse 80 04/19/2021 9:54 AM PROFILER OPERATOR Temperature 37.2 C (98.9 F) 12/27/2020 1:55 PM CDT Respiratory Rate 20 02/27/2021 7:49 AM PROFILER OPERATOR Oxygen Saturation 99% 04/19/2021 9:54 AM PROFILER OPERATOR Inhaled Oxygen Concentration - - Weight 73.9 kg (163 lb) 04/19/2021 9:54 AM PROFILER OPERATOR Height 170.2 cm (5' 7) 04/19/2021 9:54 AM PROFILER OPERATOR Body Mass Index 25.53 04/19/2021 9:54 AM PROFILER OPERATOR Plan of Treatment Health Maintenance Due Date [...] (1 of 2) 09/02/2003 INFLUENZA VACCINE (#1) 2024 OSTEOPOROSIS SCREENING 10/17/2025 10/17/2020 RSV VACCINE (60+ or ) (1 - 1-dose 75+ series) 2028 Insurance MEDICARE PART A AND B [facility] [place] [facility] Care Teams Auto Self Service Station Attendant Relationship Specialty Start Date End Date Samanta Aguayo MD PCP - General Family Practice 08/11/20
--- OUTSIDE RECORDS SUMMARY | 2024-10-09 08:06 | XMS_ITS | Clinical Summary ---
Author Organization [facility] Care Team Providers Care Quality Rn Name Role Phone Unavailable Primary Care Provider Unavailabl e Social History Tobacco Use Types Packs/Day Years Used Date Smoking Tobacco: Never Assessed Comments Unknown Sex and Gender Information Value Date Recorded Sex Assigned at Not on file Legal Sex Female 11:32 AM FIELD CREW CHIEF Gender Identity Not on file Sexual Orientation Not on file Plan of Treatment Health Maintenance Due Date Last Done Comments Hepatitis C Virus (HCV) Screening 1955 TdaP Immunization 1955 Cologuard 1998 Colonoscopy 1998 Colorectal Cancer Screening 1998 Immunochemical Fecal Occult Blood 1998 Pneumococcal Immunization (5 0+ years) (1 of 1 - PCV) 09/02/2003 Zoster Immunization (1 of 2) 09/02/2003 SARS-COV-2 Immunization ( - season) 2023 Influenza Immunization (#1) 2024 Respiratory Syncytial Virus (RSV) Immunization (Adult) (1 - 1-dose 75+ series) 2028 Hepatitis B Immunization Aged Out No longer eligible based on patient's age to complete this topic Human Papillomavirus (HPV) Immunization Aged Out No longer eligible b ased on patient's age to complete this topic Meningococcal Immunization (ACWY) Aged Out No longer eligible based on patient's age to complete this topic Rotavirus Immunization Aged Out No lo nger eligible based on patient's age to complete this topic
--- OUTSIDE RECORDS SUMMARY | 2024-10-09 08:06 | XMS_ITS | Clinical Summary ---
Author Organization [facility] Address [address] [place] [address] Care Team Providers Care Dot Net Architect Name Role Phone Samanta Aguayo MD Primary Care Provider + Source Comments [facility],non-owned Affiliates and Associated Physician Practices is amultiple site organization consisting of ambulatory clinics and hospital sitesin [place], [place], [place] and [place]. This disclosure is being madepursuant to the Care Everywhere program and may not contain all information available regarding this patient. Last updated 17.[facility] Allergies No known active allergies Medications * Be aware that medications may not be up to date on this document. Always verify current medications with the patient. Calcium 500-125 MG-UNIT Take 2 tablets by [...] at Not on file Legal Sex Female 2:12 PM KITCHENHAND Gender Identity Not on file Sexual Orientation Not on file Last Filed Vital Signs Vital Sign Reading Time Taken Comments Blood Pressure 142/94 06/09/2024 11:53 AM CDT Pulse 64 06/09/2024 11:53 AM CDT Temperature 37 C (98.6 F) 06/18/2023 1:14 PM CDT Respiratory Rate 18 06/09/2024 11:53 AM CDT Oxygen Saturation 95% 06/18/2023 1:14 PM CDT Inhaled Oxygen Concentration - - Weight 70.3 kg (155 lb) 06/18/2023 1:14 PM CDT Height 170.2 cm (5' 7) 06/18/2023 1:14 PM CDT Body Mass Index 24.28 06/18/2023 1:14 PM CDT Plan of Treatment Health Maintenance Due Date [...] of 2) 09/02/2003 COVID-19 VACCINE (1 - 2023- season) 2023 DEPRESSION SCREENING 03/10/2024 INFLUENZA VACCINE (#1) 2024 Respiratory Syncytial Virus (RSV) Vaccine Pt: or [...] on patient's age to complete this topic Insurance MEDICARE [facility] MEDICARE [employer] Care Teams Dot Net Architect Relationship Specialty Start Date End Date Samanta Aguayo MD [address] [place] [address] PCP - General 05/09/20
--- OUTSIDE RECORDS SUMMARY | 2024-10-09 08:06 | XMS_ITS | Referral Summary ---
Author Organization [facility] Address [facility] [place] [address] Care Team Providers Care Hat Stock Laminating Machine Operator Name Role Phone Jacob Hunt MD Primary [...] on file Legal Sex Female 5:06 AM BUSINESS ANALYTICS DIRECTOR Gender Identity Not on file Sexual Orientation Not on file Last Filed Vital Signs Vital Sign Reading Time Taken Comments Blood Pressure 146/81 06/11/2024 9:25 AM CDT Pulse 66 06/11/2024 9:25 AM CDT Temperature 36.4 C (97.6 F) 06/11/2024 9:25 AM CDT Respiratory Rate 18 06/11/2024 9:25 AM CDT Oxygen Saturation 99% 06/11/2024 9:25 AM CDT Inhaled Oxygen Concentration - - Weight 67.5 kg (148 lb 12.8 oz) 06/11/2024 9:19 AM CDT Height 167.6 cm (5' 6) 05/12/2024 9:40 AM BUSINESS ANALYTICS DIRECTOR Body Mass Index 24.02 05/12/2024 9:40 AM BUSINESS ANALYTICS DIRECTOR Plan of Treatment Not on file Procedures Procedure Name Priority Date/Time Associated Diagnosis Comments DEXA TBS AXIAL SKELETON BONE DENSITY 1 OR MORE SITES Schedule Routine, Read Routine (OP Routine) 05/12/2024 9:40 AM BUSINESS ANALYTICS DIRECTOR Osteopenia of multiple sites from Last 3 Months or Most Recently Relevant to Health Maintenance Results * Dexa TBS Axial Skeleton Bone Density 1 or more sites (05/12/2024 9:40 AM BUSINESS ANALYTICS DIRECTOR) Anatomical Region Laterality Modality Wrist, Body N/A Radiographic Deepa ging Narrative 05/12/2024 12:38 PM BUSINESS ANALYTICS DIRECTOR Patient Name: Suzette Louise Date of : 1955 Date of scan: 05/12/2024 Bone mineral density was performed on a HoloNovac[employer] Discovery Densitometer. Based on machine cross-calibration and [...] by the International Society of Clinical Densitometry. [id number] Rosalie Man MD IM DXA PROCEDURES Final Resu lt from Last 3 Months or Most Recently Relevant to Health Maintenance Insurance [employer] MEDICARE [facility] MEDICARE [facility]LY [facility] MEDIC[facility] FOR LIFE Care Teams Hat Stock Laminating Machine Operator Relationship Specialty Start Date End Date Jacob Hunt MD [address] [facility] [address] [place] [address] PCP - General Family Medicine 05/12/24
--- OUTSIDE RECORDS SUMMARY | 2024-10-09 08:06 | XMS_ITS | Clinical Summary ---
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 Surgical History Surgery Date Site/Laterality Comments TN TOTAL ABDOMINAL HYSTERECT W/WO RMVL TUBE OVARY [...] on file Legal Sex Female 5:06 AM POCKET CLOSER Gender Identity Not on file Sexual Orientation [...] 167.6 cm (5' 6) 05/12/2024 9:40 AM POCKET CLOSER Body Mass Index 24.02 05/12/2024 9:40 AM POCKET CLOSER Plan of Treatment Health Maintenance Due Date Last Done Comments Breast Cancer Screening-Mammogram 1955 Colon Cancer Screening-Colonoscopy 1955 Depression Screening 1955 Hepatitis C Screening 1955 DTaP/Tdap/Td Vaccine (1 - Tdap) 1964 Hepatitis B Screening 09/02/1971 Zoster Vaccine (1 of 2) 09/02/2003 Well Visit 65+ 2018 Pneumococcal vaccine 65+ (2 of 2 - PPSV23) 01/21/2020 01/20/2019 Influenza Vaccine (#1) 2024 9, 12/13/2017, 12/16/2016, Additional history exists Fall Risk Assessment 06/11/2025 06/11/2024 Osteoporosis Screening-Bone Density Scan 05/12/2026 05/12/2024, 04/23/2023, 04/16/2022, Additional history exists Procedures Procedure Name Priority Date/Time Associated Diagnosis Comments DEXA TBS AXIAL SKELETON BONE DENSITY 1 OR MORE SITES Schedule Routine, Read Routine (OP Routine) 05/12/2024 9:40 AM POCKET CLOSER Osteopenia of multiple sites from Last 3 Months or Most Recently Relevant to Health Maintenance Results * Dexa TBS Axial Skeleton Bone Density 1 or more sites (05/12/2024 9:40 AM POCKET CLOSER) Anatomical Region Laterality Modality Wrist, Body N/A Radiographic Deepa ging Narrative 05/12/2024 12:38 PM POCKET CLOSER Patient Name: Suzette Louise Date of : 1955 Date of scan: 05/12/2024 Bone mineral density was performed on a [employer] Discovery Densitometer. Based on machine cross-calibration and [...] density scan were prepared by [employer] [place]) ANTHONYT who is accredited by the International Society of Clinical Densitometry. The overall patient assessment and scan interpretation were performed by Rosalie Man M.D. who is certified by the International Society of Clinical Densitometry. [id number] Rosalie Man MD IMG DXA PROCEDURES Final Resu lt from Last 3 Months or Most Recently Relevant to Health Maintenance Insurance [employer]ATIONAL MEDICARE [facility] MEDICARE [facility] ACC[facility] MEDICARE FOR LIFE Care Teams Home Advisor Relationship Specialty Start Date End Date Jacob Hunt MD [address] [place] [address] PCP - General Family Medicine 05/12/24
--- OUTSIDE RECORDS SUMMARY | 2024-10-09 08:06 | XMS_ITS | Encounter Summary ---
Author Organization [facility] Address [address] [place] [address] Care Team Providers Care Media Producer Name Role Phone Samanta Aguayo MD Primary Care Provider + Encounter Details Date Type Department Care Team (Late st Contact Info) Description 05/10/2020 Lab Requisition [facility] [address] [place] [address] Miri Bedolla MD [address] [facility] [address] [place] [address] Social History Tobacco Use Types Packs/Day Years Used Date Smoking Tobacco: Never Assessed Comments Unknown Sex and Gender Information Value Date Recorded Sex Assigned at Not on file Legal Sex Female 2:12 PM SYNTHETIC CLOTH BINDING CUTTER Gender Identity Not on file Sexual Orientation Not on file documented as of this encounter Plan of Treatment Not on file documented as of this encounter Procedures Procedure Name Priority Date/Time Associated Diagnosis Comments DERMATOPATHOLOGY Routine 05/09/2020 12:0 0 AM SYNTHETIC CLOTH BINDING CUTTER documented in this encounter Results * DERMATOPATHOLOGY (05/09/2020 12:00 AM SYNTHETIC CLOTH BINDING CUTTER) Case Report Dermatopathology Report Case: [id number] Authorizing Provider: Miri Bedolla MD Collected: 05/09/2020 12:00 AM Ordering Location: [facility] Lab Received: 05/10/2020 10:37 AM Pathologist: Kristel Lopez MD Specimen: Skin, suprapubic 4:09 PM [facility] Final Diagnosis Specimen A. 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 The specimen consists of a punch biopsy measuring 8x8x9 mm, bisected. Jar 0. 4:09 PM [facility] Microscopic Description Specimen A. SKIN, suprapubic: There is a dome-shaped portion of skin with psoriasiform epidermal hyperplasia, compact hyperkeratosis, and fibrosis of the papillary dermis associated with a superficial perivascular lymphohistiocytic infiltrate. 4:09 PM [facility] Disclaimer An external and internal positive and negative controls are appropriate for the histochemical, immunohistochemical and immunofluorescence stain(s) in this case (if any), except where stated explicitly. The performance characteristics of the stain(s) cited in this report were developed and its performance characteristic determined by the Dermatopathology Laboratory at [facility], directed by Dr. Crow Lopez. These tests need not be, and therefore are not, approved by the [place] Food and Drug Administration. The tests are used for clinical purposes. Billing Codes Specimen Charges Stain Charges 19233 1 4:09 PM [facility] Embedded Images 4:09 PM [facility] Pathology/Cytolog y TISSUE SPECIMEN FROM SKIN / Unknown 05/09/2020 05/10/2020 10:37 AM SYNTHETIC CLOTH BINDING CUTTER us Miri Bedlola MD LAB - PATHOLOGY/CYTOLOGY ORD ERABLES Final Result DERMATOPATHOLOGY LABORATORY [facility] - Department of Dermatology [address], [address] [phone] documented in this encounter Visit Diagnoses Not on filedocumented in this encounter Care Teams Media Producer Relationship Specialty Start Date End Date Samanta Aguayo MD [address] [facility] [address] [place] [id number] PCP - General 05/09/20 documented as of this encounter
--- OUTSIDE RECORDS SUMMARY | 2024-10-09 08:06 | XMS_ITS | Encounter Summary ---
Author Organization [facility] Address [address] [place] [address] Care Team Providers Care Heel Breaster Name Role Phone Samanta Aguayo MD Primary Care Provider +1- [phone] Reason for Visit * Reason Onset Date Comments Follow Up 01/18/2021 pt called back Encounter Details Date Type Department Care Team (Late st Contact Info) Description 01/18/2021 Telephone [facility] Pre Procedure Phase II [address] [place] [address] Daisy Nunez, RN Follow Up [...] Vicky Jacobo RN - 01/18/2021 9:59 AM MAINTENANCE SHOP TECHNICIAN 01/18/2021 9:59 AM Name: Suzette Turner [...] clinic with any questions or concerns at [phone] HOME Hodgson RN Lighting Designer - Spine & Pain HOD Procedures Office: [phone] TENANCE SHOP TECHNICIAN documented in this encounter Plan of Treatment Not on file documented as of this encounter Visit Diagnoses Not on filedocumented in this encounter Care Teams Heel Breaster Relationship Specialty Start Date End Date Samanta Aguayo MD PCP - General Family Practice 08/11/20 documented as of this encounter
--- NOTE | 2024-10-09 08:09 | ED.EAR ---
HPI - Ear Problem General Chief complaint: Ear Stated complaint: ear ache Time Seen by Provider: 10/09/24 08:10 Source: patient Mode of arrival: ambulatory Limitations: no limitations History of Present Illness HPI Narrative: 69 yo F presents with R ear pain for approx. 4 days. Afebrile. No change to hearing. Wears hearing aids to both ears. Tender when placing hearing aid. No recent swimming. Reports wet feeling to ears for months. Uses qtips but nothing comes out of ears when using them. Mentioned to [employer] supervisor at last visit and told ears looked normal. All systems reviewed and negative except as noted above. Related Data Home Medications ?Medication ?Instructions ?Recorded ?Confirmed ?Last Taken ?Type cyclosporine 0.05 % eye drops in a 1 drop ophthalmic (eye) Q12H 04/05/19 06/07/24 Unknown History dropperette (Restasis) calcium carbonate (Antacid Calcium) 600 mg PO BID 05/23/21 06/07/24 1 Week Ago History ~10/14/22 fiber 1 tablet PO DAILY 12/28/21 06/07/24 1 Week Ago History ~10/14/22 doxycycline monohydrate 50 mg 50 mg PO DAILY 01/22/24 06/07/24 Unknown History tablet Allergies Allergy/AdvReac Type Severity Reaction Status Date / Time nickel Allergy Mild swelling Verified 10/09/24 08:13 and itch bee venom protein (honey bee) Allergy Unknown Swelling Verified 10/09/24 08:13 poison yvette extract Allergy Unknown Itching & Verified 10/09/24 08:13 SWELLING amlodipine AdvReac Intermediate facial Verified 10/09/24 08:13 flushing lisinopril AdvReac Intermediate Nausea Verified 10/09/24 08:13 PMFSH Past Medical History Medical History GCA (giant cell arteritis) Prolapse of vaginal vault after hysterectomy Folliculitis Polymyalgia rheumatica Hearing loss of aging Cervical radiculopathy due to degenerative joint disease of spine Inflammatory arthritis Vaginal discharge Degenerative arthritis of lumbar spine Inflammatory arthritis Degenerative arthritis of knee, bilateral GERD (gastroesophageal reflux disease) Congestion of left ear Hearing loss of both ears Dry eye syndrome Bronchitis Acute sinusitis Surgical History Surgical History Status post right rotator cuff repair (~02/03/24) w/ loose body removal, Extensive debridement, biceps tenotomy, labral debridement and chondroplasty Tear meniscus knee arthroscopy right 2018 left 2019 History of rotator cuff surgery 2005 History of hysterectomy 1984 Family History Family History Sibling Carcinoma of colon, Onset Age: 69 Father Family history of lung cancer, Onset Age: 68 Social History Social History Social History: Smoking status: Never smoker Second hand tobacco smoke exposure: No Alcohol intake: current Drinks per week: 7 Substance use: never Substance use type: does not use Do You Feel Safe in your Home?: Yes Lack of Transportation: No Lack of Food: Never True Current Housing: I Have Housing Concerned About Future Housing: No Difficulty Paying Gas/Electric Bills: No Difficulty Paying for Meds: No Currently Unemployed: No Education: High School Diploma/GED Difficulty w/ Childcare or Family Care: No Living arrangements: with family Additional living arrangements comments: [employer] Occupation/Education: retired Gender identity (if verbalized by the patient): Female Sexual Orientation (if Verbalized by the Patient): Straight or Heterosexual Spiritual care concerns: No Comments At time of signature, agree with nursing past medical, surgical, social and family history. There is no relevant family history pertinent to the presenting complaint. Exam Narrative: GENERAL: This is a well-nourished, well-developed patient, in no apparent distress. HEAD: normocephalic, atraumatic. EYES: PERRL. Sclera clear/white. Vision is grossly intact. EARS: External ears normal, Left ear canal is. Right ear canal is erythematous with mild swelling. Left TM is normal. Right TM is erythematous, yellow purulent fluid, retracted. No perforation bilaterally.. Hearing grossly intact. NOSE: External nose normal NECK: Neck supple, non-tender without lymphadenopathy, masses or thyromegaly. CARDIOVASCULAR: Regular rate and rhythm without murmurs, gallops, or rubs. RESPIRATORY: Clear to auscultation. Breath sounds equal bilaterally. No wheezes, rales, or rhonchi. SKIN: warm, Dry, intact with no suspicious lesions or rash, good texture and turgor. NEURO: awake, alert, and oriented to person, place and time. There were no obvious focal neurologic abnormalities. EXTREMITIES: No joint tenderness, effusion, or edema noted. Course Course Level of Care: Express Care Visit Vital Signs Vital signs: Reviewed Medical Decision Making MDM Narrative Medical decision making narrative: exam of right ear concerning for otitis externa and otitis media. Will treat with amoxicillin and Ciprodex antibiotic drops. Patient agrees with plan of care. Afebrile. Will follow-up with primary care physician as needed. Discharge Plan Discharge Clinical Impression: Acute otitis media Qualifiers: Laterality: right Acute otitis externa Qualifiers: Laterality: right Patient Disposition: Home Condition: Stable Instructions: Antibiotic Form, Ear Infection (ED) Additional Instructions: Take antibiotic as prescribed until gone. Place antibiotic drops to right ear as prescribed. Take tylenol every 6 to 8 hours as needed for pain. Leave right hearing aid out until pain has resolved. See your doctor if not improving. Patient Language: Occitan Prescriptions: New ciprofloxacin-dexamethasone 0.3-0.1 % drops,suspension 4 drp RIGHT EAR Q12H 7 Days Qty: 7.5 0RF amoxicillin 875 mg tablet 875 mg PO Q12H 10 Days Qty: 20 0RF No Action Restasis 0.05 % dropperette 1 drop EACH EYE Q12H doxycycline monohydrate 50 mg tablet 50 mg PO DAILY fiber Tablet 1 tablet PO DAILY Antacid Calcium 215 mg calcium (500 mg) tablet,chewable 600 mg PO BID metronidazole 1 % gel 1 applic topical DAILY Qty: 60 1RF Follow-up/Referrals: Jacob Hunt MD [Primary Care Provider] - Time of Disposition: 08:24
[2024-10-09 08:12] VITALS: BP 146/99; PULSE 72; RESP 18; TEMP 36.5; O2SAT 100
== END 2024-10-09 08:27 | disposition home or self-care (01) ==
PROVIDERS: Emergency Provider Nurse Practitioner Family; PCP Family Medicine
DX: H66.91 Otitis media, unspecified, right ear (principal); H60.91 Unspecified otitis externa, right ear; M31.5 Giant cell arteritis with polymyalgia rheumatica; M19.90 Unspecified osteoarthritis, unspecified site; M47.816 Spondylosis without myelopathy or radiculopathy, lumbar region; M17.0 Bilateral primary osteoarthritis of knee; K21.9 Gastro-esophageal reflux disease without esophagitis; M47.22 Other spondylosis with radiculopathy, cervical region
CPT/HCPCS: 99213; G0463